=== PATIENT | male | born 1950 | race Caucasian/White ===

== ENCOUNTER 2017-03-09 08:00 | Outpatient (CLI) | payer MEDICARE, OTHER | END 2017-03-09 08:01 | disposition home or self-care (01) | DX: I50.22 Chronic systolic (congestive) heart failure (principal) ==

== ENCOUNTER 2018-04-26 12:37 | Emergency (ER) | payer MEDICARE, OTHER ==
[2018-04-26 13:12] LABS: BASOPHILS # (AUTO) 0.1 10^3/uL (0.0-0.1); BASOPHILS % (AUTO) 1.3 %; EOSINOPHILS # (AUTO) 0.2 10^3/uL (0.0-0.7); EOSINOPHILS % (AUTO) 3.5 %; HGB - HEMOGLOBIN 12.9 g/dL (14.0-18.0); LYMPHOCYTES % (AUTO) 13.8 %; MEAN CORPUSCULAR HEMOGLOBIN 31.2 pg (27.0-31.0); MEAN CORPUSCULAR HGB CONC 33.6 g/dL (32.0-36.0); MEAN CORPUSCULAR VOLUME 93.1 fL (80.0-94.0); MEAN PLATELET VOLUME 7.7 fL (7.4-11.4); MONOCYTES # (AUTO) 0.5 10^3/uL (0.0-1.0); MONOCYTES % (AUTO) 7.2 %; NEUTROPHILS # (AUTO) 5.1 10^3/uL (1.5-6.6); NEUTROPHILS % (AUTO) 74.2 %; PLT - PLATELET COUNT 186 10^3/uL (130-450); RED BLOOD COUNT 4.12 10^6/uL (4.70-6.10); RED CELL DISTRIBUTION WIDTH 13.9 % (12.0-15.0); WHITE BLOOD COUNT 6.9 x10^3/uL (4.8-10.8)
[2018-04-26 13:30] LABS: ALBUMIN 3.9 g/dL (3.2-5.5); ALBUMIN/GLOBULIN RATIO 1.2 (1.0-2.2); BILIRUBIN,TOTAL 0.8 mg/dL (0.2-1.0); CALCIUM 9.1 mg/dL (8.5-10.3); CREATININE 1.2 mg/dL (0.6-1.2); TOTAL PROTEIN 7.1 g/dL (6.7-8.2)
--- NOTE | 2018-04-26 14:49 | XRAY Report ---
Procedure Date: 04/26/2018 Accession Number: [id number] / [id number] Procedure: XR - Chest 2 View X-Ray CPT Code: 15169 FULL RESULT: EXAM: CHEST RADIOGRAPHY EXAM DATE: 04/26/2018 02:22 PM. CLINICAL HISTORY: Lightheaded. COMPARISON: 03/03/2015. TECHNIQUE: 2 views. FINDINGS: Lungs/Pleura: No focal opacities evident. No pleural effusion. No pneumothorax. Normal volumes. No vascular congestion. Mediastinum: Stable mild cardiomegaly. Remote sternotomy. Stable dual-lead left subclavian AICD. No tracheal shift. Other: None. IMPRESSION: Mild cardiomegaly. AICD. RADIA
[2018-04-26] MEDS ORDERED: SODIUM CHLORIDE 0.9% 500 ML IV ONE (15:02)
[2018-04-26] MEDS ORDERED: INSULIN REGULAR HUMAN 100 UNIT/1 ML 10 ML MDV IVP STA (15:03)
--- NOTE | 2018-04-26 15:11 | ED Physician Documentation ---
PD HPI CHEST PAIN - Stated complaint Stated Complaint: HEART PALPITATIONS,FATIGUE,DIZZINESS,H/A - Chief complaint Chief Complaint: Cardiac - History obtained from History obtained from: Patient, Family - History of Present Illness Timing - onset: Other (This is a very pleasant 67-year-old gentleman with history of ischemic cardiomyopathy with multiple stents in place and EF 40%, AICD in place in underlying atrial fibrillation on Eliquis. He presents with a week's worth of exertional shortness of breath without orthopnea and fatigue. He denies any chest pain or pedal edema. He does note urinary frequency. No stomach upset or changes in his bowel movements.) Review of Systems Ten Systems: 10 systems reviewed and negative Constitutional: reports: Fatigue. denies: Fever, Chills Cardiac: denies: Chest pain / pressure, Palpitations, Pedal edema, Calf pain Respiratory: denies: Cough, Hemoptysis, Wheezing GI: denies: Abdominal Pain, Nausea, Vomiting, Bloody / black stool PD PAST MEDICAL HISTORY - Past Medical History Cardiovascular: Congestive heart failure, Hypertension, High cholesterol, Coronary artery disease, Angina, [place], Atrial flutter Respiratory: Sleep apnea, CPAP use Endocrine/Autoimmune: Type 2 diabetes GI: GERD Psych: None Musculoskeletal: Osteoarthritis, Fatigue, Chronic back pain - Past Surgical History Past Surgical History: Yes General: Cholecystectomy Ortho: Arthroscopic surgery, Spine surgery Cardiovascular: CABG, Coronary stent, Pacemaker, AICD - Present Medications Home Medications: Ambulatory Orders Medication Instructions Recorded Confirmed Apixaban [Eliquis] 5 mg PO BID 03/03/15 01/19/16 Aspirin [Aspir 81] 1 tab PO DAILY 03/03/15 01/19/16 Carvedilol [Coreg] 12.5 tab PO BID 03/03/15 01/19/16 Digoxin 125 mcg PO DAILY 03/03/15 01/19/16 Esomeprazole Magnesium [Nexium] 40 mg PO DAILY 03/03/15 01/19/16 Fenofibrate 160 mg PO DAILY 03/03/15 01/19/16 Furosemide 40 mg PO DAILY 03/03/15 01/19/16 Lisinopril 5 mg PO DAILY 03/03/15 01/19/16 Metformin HCl [Metformin HCl ER] 500 mg PO BID 03/03/15 01/19/16 Ranolazine [Ranexa] 500 mg PO BID 03/03/15 01/19/16 Rosuvastatin Calcium [Crestor] 20 mg PO DAILY 03/03/15 01/19/16 Sertraline HCl 100 mg PO DAILY 03/03/15 01/19/16 Spironolactone 25 mg PO DAILY 03/03/15 01/19/16 Insulin Lispro Protamin/Lispro 60 - 70 unit SQ BID 01/19/16 01/19/16 [Humalog Mix 75-25 Vial] Nitroglycerin [Nitrostat] 0.3 mg SL Q5MIN PRN 01/19/16 01/19/16 Ubidecarenone/Vitamin E Mixed 1 each PO DAILY 01/19/16 01/19/16 [[id number]-Tzz E 100 mg-10 Unit Sfg] - Allergies Allergies/Adverse Reactions: Allergies Allergy/AdvReac Type Severity Reaction Status Date / Time No Known Drug Allergies Allergy Verified 04/26/18 12:52 - Social History Does the pt smoke?: No Smoking Status: Former smoker Does the pt drink ETOH?: Yes Does the pt have substance abuse?: No PD ED PE NORMAL - Vitals Vital signs reviewed: Yes - General General: Alert and oriented X 3, No acute distress - HEENT HEENT: PERRL, EOMI - Neck Neck: Supple, no meningeal sign, No bony TTP - Cardiac Cardiac: RRR, No murmur - Respiratory Respiratory: No respiratory distress, Clear bilaterally - Abdomen Abdomen: Non tender, Non distended - Extremities Extremities: No edema, No calf tenderness / cord - Neuro Neuro: Alert and oriented X 3, Normal speech - Psych Psych: Normal mood, Normal affect Results - Vitals Vitals: Vital Signs - 24 hr 04/26/18 04/26/18 12:48 15:32 Temperature 36 C L Heart Rate 58 L 60 Respiratory 16 16 Rate Blood Pressure 93/62 130/77 Blood Pressure 128/70 [Left] Blood Pressure 132/70 H [Right] O2 Saturation 96 98 Oxygen O2 Source Room air - EKG (time done) 1301 Rate: Rate (enter#) Rhythm: Paced (60) Computer interpretation: Agree with computer - Labs Labs: Laboratory Tests 04/26/18 04/26/18 04/26/18 13:09 13:09 13:09 WBC 6.9 RBC 4.12 L Hgb 12.9 L Hct 38.4 L MCV 93.1 MCH 31.2 H MCHC 33.6 RDW 13.9 Plt Count 186 MPV 7.7 Neut # (Auto) 5.1 Lymph # (Auto) 1.0 L [place] # (Auto) 0.5 Eos # (Auto) 0.2 Baso # (Auto) 0.1 Absolute Nucleated RBC 0.00 Nucleated RBC % 0.0 Sodium 133 L Potassium 4.8 Chloride 103 Carbon Dioxide 23 Anion Gap 7.0 BUN 33 H Creatinine 1.2 Estimated GFR (MDRD) 60 L Glucose 410 H POC Whole Bld Glucose Calcium 9.1 Total Bilirubin 0.8 AST 43 H ALT 28 Alkaline Phosphatase 82 Troponin I < 0.04 B-Natriuretic Peptide Total Protein 7.1 Albumin 3.9 Globulin 3.2 Albumin/Globulin Ratio 1.2 Lipase 36 Last Dose Date Last Dose Time Digoxin 04/26/18 04/26/18 04/26/18 13:09 13:09 16:23 WBC RBC Hgb Hct MCV MCH MCHC RDW Plt Count MPV Neut # (Auto) Lymph # (Auto) [place] # (Auto) Eos # (Auto) Baso # (Auto) Absolute Nucleated RBC Nucleated RBC % Sodium Potassium Chloride Carbon Dioxide Anion Gap BUN Creatinine Estimated GFR (MDRD) Glucose POC Whole Bld Glucose 253 H Calcium Total Bilirubin AST ALT Alkaline Phosphatase Troponin I B-Natriuretic Peptide 99 Total Protein Albumin Globulin Albumin/Globulin Ratio Lipase Last Dose Date UNKNOWN Last Dose Time UNKNOWN Digoxin < 0.2 - Rads (name of study) 2v chest Radiology: EMP read contemporaneously (Mild cardiomegaly, AICD, no CHF) PD MEDICAL DECISION MAKING - ED course ED course: 67-year-old gentleman with exertional dyspnea but no orthopnea. He does not appear to be in CHF and looking at his labs he is slightly hypovolemic with BUN higher than normal and high blood sugar. He admits he does not check his blood sugar at home. After the administration of 500 mL of normal saline and IV insulin his blood sugar was down to the 250 range and he was feeling back to normal. He was advised to increase his nighttime dose of insulin to 70 units and track his blood sugars closely and report to his physician. - Sepsis Event Vital Signs: Vital Signs - 24 hr 04/26/18 04/26/18 12:48 15:32 Temperature 36 C L Heart Rate 58 L 60 Respiratory 16 16 Rate Blood Pressure 93/62 130/77 Blood Pressure 128/70 [Left] Blood Pressure 132/70 H [Right] O2 Saturation 96 98 Oxygen O2 Source Room air Departure - Departure Disposition: 01 Home, Self Care Clinical Impression: Hyperglycemia, Dehydration Fatigue Qualifiers: Fatigue type: unspecified Qualified Code(s): R53.83 - Other fatigue Condition: Good Record reviewed to determine appropriate education?: Yes Instructions: ED Hyperglycemia Diabetic Comments: Increase her nighttime insulin dose to 70 units, check your blood sugars closely and write them down, follow-up with your doctor in a week.
[2018-04-26 15:23] LABS: DIGOXIN < 0.2 ng/mL
[2018-04-26 15:50] VITALS: BP 130/77
== END 2018-04-26 16:55 | disposition home or self-care (01) ==
LOC: ED 12:37
DX: E11.65 Type 2 diabetes mellitus with hyperglycemia (principal); E86.0 Dehydration; R53.83 Other fatigue; R94.31 Abnormal electrocardiogram [ECG] [EKG]; I11.0 Hypertensive heart disease with heart failure; I50.9 Heart failure, unspecified; E78.00 Pure hypercholesterolemia, unspecified; I48.91 Unspecified atrial fibrillation; Z95.1 Presence of aortocoronary bypass graft; Z79.4 Long term (current) use of insulin; Z95.810 Presence of automatic (implantable) cardiac defibrillator; Z95.5 Presence of coronary angioplasty implant and graft; Z87.891 Personal history of nicotine dependence; Z79.01 Long term (current) use of anticoagulants; Z79.82 Long term (current) use of aspirin
CPT/HCPCS: 36415; 71046; 80053; 80162; 83690; 83880; 84484; 85025; 93005; 99283; 99284; J1815

== ENCOUNTER 2018-06-12 11:52 | Outpatient (CLI) | payer MEDICARE, OTHER ==
[2018-06-12 13:03] LABS: CREATININE 1.3 mg/dL (0.6-1.2)
== END 2018-06-12 11:53 | disposition home or self-care (01) ==
LOC: LAB 11:52
PROVIDERS: ATTEND Ophthalmology
DX: G93.0 Cerebral cysts (principal); H53.2 Diplopia
CPT/HCPCS: 36415; 82565; 84520

== ENCOUNTER 2018-06-13 10:11 | Outpatient (CLI) | payer MEDICARE, OTHER | END 2018-06-13 10:12 | disposition home or self-care (01) | LOC: DI 10:11 | PROVIDERS: ATTEND Ophthalmology | DX: Z53.9 Procedure and treatment not carried out, unspecified reason (principal) ==

== ENCOUNTER 2019-04-04 11:44 | Outpatient (CLI) | payer MEDICARE, OTHER | END 2019-04-04 11:45 | disposition critical access hospital (66) | LOC: EMS 11:44 | PROVIDERS: ATTEND Surgery | DX: R42 Dizziness and giddiness (principal); R26.2 Difficulty in walking, not elsewhere classified; R41.3 Other amnesia; R19.5 Other fecal abnormalities | CPT/HCPCS: A0425; A0427 ==

== ENCOUNTER 2019-04-04 12:05 | Inpatient (IN) | payer MEDICARE, OTHER ==
[2019-04-04] MEDS ORDERED: PANTOPRAZOLE 40 MG VIAL IVP STA (12:41)
--- NOTE | 2019-04-04 12:44 | ED Physician Documentation ---
History of Present Illness - Stated complaint Stated Complaint: BODY ACHES - Chief complaint Chief Complaint: General - History obtained from History obtained from: Patient, EMS - History of Present Illness Timing: Other (This is a gentleman with history of atrial fibrillation on Eliquis, coronary artery disease and congestive heart failure. About 2 weeks ago he was taken off of amitriptyline and started on midodrine. He feels like this was the beginning of his current problems which include generalized weakness and dark and tarry stools. He does have a history of several stomach ulcers. I asked him if he was taking any NSAIDs he said he was but he could not name one despite prompting. I asked him what he was taking it for and he said sleep. I reminded him that he should not take NSAIDs and if necessary for pain he can take Tylenol, but he has not been taking anything for pain he says. So it is unclear if he is been taking NSAIDs. He does have a history of alcohol abuse but quit a year ago.) Review of Systems Ten Systems: 10 systems reviewed and negative Constitutional: reports: Myalgias, Fatigue. denies: Fever, Chills Cardiac: denies: Chest pain / pressure, Palpitations GI: reports: Bloody / black stool. denies: Abdominal Pain, Nausea, Vomiting, Constipation, Diarrhea PD PAST MEDICAL HISTORY - Past Medical History Cardiovascular: Congestive heart failure, Hypertension, High cholesterol, Co ronary artery disease, Angina, [place], Atrial flutter Respiratory: Sleep apnea, CPAP use Endocrine/Autoimmune: Type 2 diabetes GI: GERD Psych: None Musculoskeletal: Osteoarthritis, Fatigue, Chronic back pain - Past Surgical History Past Surgical History: Yes General: Cholecystectomy Ortho: Arthroscopic surgery, Spine surgery Cardiovascular: CABG, Coronary stent, Pacemaker, AICD - Present Medications Home Medications: Ambulatory Orders Medication Instructions Recorded Confirmed Apixaban [Eliquis] 5 mg PO BID 03/03/15 01/19/16 Aspirin [Aspir 81] 1 tab PO DAILY 03/03/15 01/19/16 Carvedilol [Coreg] 12.5 tab PO BID 03/03/15 01/19/16 Digoxin 125 mcg PO DAILY 03/03/15 01/19/16 Esomeprazole Magnesium [Nexium] 40 mg PO DAILY 03/03/15 01/19/16 Fenofibrate 160 mg PO DAILY 03/03/15 01/19/16 Furosemide 40 mg PO DAILY 03/03/15 01/19/16 Lisinopril 5 mg PO DAILY 03/03/15 01/19/16 Metformin HCl [Metformin HCl ER] 500 mg PO BID 03/03/15 01/19/16 Ranolazine [Ranexa] 500 mg PO BID 03/03/15 01/19/16 Rosuvastatin Calcium [Crestor] 20 mg PO DAILY 03/03/15 01/19/16 Sertraline HCl 100 mg PO DAILY 03/03/15 01/19/16 Spironolactone 25 mg PO DAILY 03/03/15 01/19/16 Insulin Lispro Protamin/Lispro 60 - 70 unit SQ BID 01/19/16 01/19/16 [Humalog Mix 75-25 Vial] Nitroglycerin [Nitrostat] 0.3 mg SL Q5MIN PRN 01/19/16 01/19/16 Ubidecarenone/Vitamin E Mixed 1 each PO DAILY 01/19/16 01/19/16 [[id number]-Xft E 100 mg-10 Unit Sfg] - Allergies Allergies/Adverse Reactions: Allergies Allergy/AdvReac Type Severity Reaction Status Date / Time No Known Drug Allergies Allergy Verified 04/04/19 12:28 - Social History Does the pt smoke?: No Smoking Status: Former smoker Does the pt drink ETOH?: Yes Does the pt have substance abuse?: No - Family History Family history: reports: Non contributory PD ED PE NORMAL - Vitals Vital signs reviewed: Yes - General General: Alert and oriented X 3, No acute distress - HEENT HEENT: PERRL, EOMI - Neck Neck: Supple, no meningeal sign, No bony TTP - Cardiac Cardiac: RRR, No murmur - Respiratory Respiratory: No respiratory distress, Clear bilaterally - Abdomen Abdomen: Soft, Non tender - Rectal Rectal: Other (Dark stool, I would not quite call it melenic but it is quite dark and very guaiac positive) - Back Back: No CVA TTP, No spinal TTP - Derm Derm: Normal color, Warm and dry - Extremities Extremities: No edema, No calf tenderness / cord - Neuro Neuro: Alert and oriented X 3, Normal speech Results - Vitals Vitals: Vital Signs - 24 hr 04/04/19 12:21 Temperature 37.2 C Heart Rate 77 Respiratory 18 Rate Blood Pressure 132/61 H O2 Saturation 96 Oxygen O2 Source Room air - EKG (time done) 1230 Rate: Rate (enter#) (67) Rhythm: Other (Regular junctional rhythm with a left anterior fascicular block, diffusely flat T waves, no ST elevation or depression.) Computer interpretation: Agree with computer - Labs Labs: Laboratory Tests 04/04/19 04/04/19 04/04/19 12:45 12:45 12:45 WBC 7.6 RBC 2.63 L Hgb 8.1 L Hct 24.4 L MCV 92.7 MCH 30.7 MCHC 33.1 RDW 17.8 H Plt Count 183 MPV 7.6 Neut # (Auto) 6.1 Lymph # (Auto) 0.8 L [place] # (Auto) 0.5 Eos # (Auto) 0.1 Baso # (Auto) 0.1 Absolute Nucleated RBC 0.01 Nucleated RBC % 0.1 Sodium 140 Potassium 3.9 Chloride 106 Carbon Dioxide 23 Anion Gap 11.0 BUN 25 H Creatinine 0.9 Estimated GFR (MDRD) 84 L Glucose 144 H Calcium 8.6 Total Bilirubin 1.0 AST 39 ALT 24 Alkaline Phosphatase 120 Troponin I < 0.04 Total Protein 6.5 L Albumin 3.5 Globulin 3.0 Albumin/Globulin Ratio 1.2 Lipase 33 PD MEDICAL DECISION MAKING - ED course ED course: 68-year-old gentleman with extensive history of coronary disease on [facility] ents with Dark and tarry stools and evidence of lower GI bleeding with a hemoglobin of 8.1, his usual is around 3018. His hemodynamics are fine. Blood was readied and he was given Protonix. I talked with the on-call surgeon, Dr. Javon Valles who will see him in consultation at 1:15 PM and the admitting physician, Dr. Maddox at 1:19 PM. Departure - Departure Disposition: 66 [facility] DC/Xfer Clinical Impression: GI bleed Condition: Serious
[2019-04-04 12:56] LABS: BASOPHILS # (AUTO) 0.1 10^3/uL (0.0-0.1); BASOPHILS % (AUTO) 0.9 %; EOSINOPHILS # (AUTO) 0.1 10^3/uL (0.0-0.7); EOSINOPHILS % (AUTO) 1.4 %; HGB - HEMOGLOBIN 8.1 g/dL (14.0-18.0); LYMPHOCYTES # (AUTO) 0.8 10^3/uL (1.5-3.5); LYMPHOCYTES % (AUTO) 11.1 %; MEAN CORPUSCULAR HEMOGLOBIN 30.7 pg (27.0-31.0); MEAN CORPUSCULAR HGB CONC 33.1 g/dL (32.0-36.0); MEAN CORPUSCULAR VOLUME 92.7 fL (80.0-94.0); MEAN PLATELET VOLUME 7.6 fL (7.4-11.4); MONOCYTES # (AUTO) 0.5 10^3/uL (0.0-1.0); MONOCYTES % (AUTO) 6.5 %; NEUTROPHILS # (AUTO) 6.1 10^3/uL (1.5-6.6); NEUTROPHILS % (AUTO) 80.1 %; PLT - PLATELET COUNT 183 10^3/uL (130-450); RED BLOOD COUNT 2.63 10^6/uL (4.70-6.10); RED CELL DISTRIBUTION WIDTH 17.8 % (12.0-15.0); WHITE BLOOD COUNT 7.6 x10^3/uL (4.8-10.8)
[2019-04-04 13:13] LABS: ALBUMIN 3.5 g/dL (3.2-5.5); ALBUMIN/GLOBULIN RATIO 1.2 (1.0-2.2); ALKALINE PHOSPHATASE 120 IU/L (42-121); ALT ALANINE AMINOTRANSFERASE 24 IU/L (10-60); AST ASPARTATE AMINOTRANSFERASE 39 IU/L (10-42); BUN - BLOOD UREA NITROGEN 25 mg/dL (6-20); CALCIUM 8.6 mg/dL (8.5-10.3); CARBON DIOXIDE - CO2 23 mmol/L (21-32); CHLORIDE 106 mmol/L (101-111); CREATININE 0.9 mg/dL (0.6-1.2); GFR - MDRD 84 (>89); GLUCOSE 144 mg/dL (70-100); LIPASE 33 U/L (22-51); SODIUM 140 mmol/L (135-145); TOTAL PROTEIN 6.5 g/dL (6.7-8.2)
[2019-04-04 13:30] LABS: DIGOXIN < 0.2 ng/mL
[2019-04-04] MEDS ORDERED: SODIUM CHLORIDE FLUSH 0.9% 10 ML SYRINGE IVP PRN (13:34)
[2019-04-04] MEDS ORDERED: ONDANSETRON 4 MG/2 ML VIAL IVP PRN (13:34)
--- NOTE | 2019-04-04 13:37 | HISTORY & PHYSICAL EXAMINATION ---
Chief Complaint - Chief Complaint Chief Complaint: GI bleed, falls, weakness GI Bleed Admit Template - Admitted From Admitted from: ED - History Obtained From Records Reviewed: RN notes reviewed, Old records reviewed History obtained from: Patient Exam limitations: No limitations - History of Present Illness Severity at the worst: reports: Moderate Bleeding quality: reports: Black, tarry stool Context-bleeding started w/: reports: Spontaneous, ETOH intake Timing: reports: Gradual onset (about 1 week ago), Intermittent Duration: reports: Days: (7) Improved with: reports: Nothing Worsened by: reports: Other (recent increased NSAID use for insomnia) Associated symptoms: reports: Feeling faint / dizzy, General Weakness, Other (recurrent falls) HPI Comment/Other: Maxime Tristan is an obese 68-year old male with a past medical history of CHF, hypertension, hyperlipidemia, CAD, chronic angina, atrial flutter, SHIELA- with CP AP, diabetes mellitus type 2- insulin dependent, GERD, osteoarthritis, fatigue, chronic back pain, status post CABG, coronary stents, pacemaker/ICD in place, BPH, nocturia, insomnia, gastric ulcers, depression, and alcoholism. The patient states that he was started on amitriptyline for ongoing insomnia and in mid February was started on Midodrine by his ultrasonic seaming machine operator. He believes that since starting the Midodrine, he has been having bad side effects and that this medication has caused his black stools. He admits to a recent increase in his ibuprofen use in which he takes 2-3 tablets each night before bed to promote sleep. He admits to alcohol use and states that he and his will usually dr ink 1 bottle of wine between the 2 of them each night. He also states that for the past week his syncope episodes have been more frequent in which he becomes very weak, looses the ability to speak and has to quickly find a place to sit in order to prevent himself from falling all the way to the floor. These episodes last 15-20 minutes and he has double vision with left eye fogginess. For the pa st 1 year he has noticed a slight tremor and weakness to his RUE of which he is right-hand dominant. He believes that he has been to at least 5 specialists within the past year and his illness remains "a mystery" to every medical professional. He claims that he will be traveling to the [facility] in [place] in the very near future. He explains that if he has to "just sit around for the next 48 hours, he is going to leave", in regards to his current situation. A general surgery consult was made already in the ED for a possible EGD and colonoscopy to evaluate for a recurrence of gastric ulcers. PMH/PSH - Past Medical History Cardiovascular: positive: Congestive heart failure, Hypertension, High cholesterol, Coronary artery disease, Angina, [place], Atrial flutter Respiratory: positive: COPD, Shortness of breath, Sleep apnea, CPAP use Neuro: positive: TIA, Peripheral neuropathy, Tremors (right hand tremor, weakness) Endocrine/Autoimmune: positive: Type 2 diabetes GI: positive: GERD, GI bleed, Ulcers : positive: Benign prostate hypertrophy, Renal insuffiency, Nocturia, Frequency HEENT: positive: Chronic vision loss, Chronic sinusitis, Macular degeneration, Chronic hearing loss Psych: positive: Depression, Anxiety Musculoskeletal: positive: Osteoarthritis, Fatigue, Chronic back pain Derm: positive: None MRSA Hx?: No - Past Surgical History General: positive: Cholecystectomy, EGD Ortho: positive: Arthroscopic surgery, Spine surgery Cardiovascular: positive: CABG, Coronary stent, Pacemaker, AICD Social & Family Hx - Living Situation Living Arrangement: At home Living Situation: With spouse/s.o. - Social History Does the pt smoke?: No Smoking Status: Former smoker Does the pt drink ETOH?: Yes ETOH Use: Wine Does the pt have substance abuse?: No - POLST Patient has POLST: No POLST Status: DNR - Family History Family History: Mother: , CAD, Father: Family History Comment/Other: Mother: CHF Father: in the war Meds/Allgy - Home Medications Home Medications: Ambulatory Orders Medication Instructions Recorded Confirmed Apixaban [Eliquis] 5 mg PO BID 03/03/15 04/04/19 Aspirin [Aspir 81] 81 mg PO DAILY 03/03/15 04/04/19 Carvedilol [Coreg] 6.25 mg PO BID 03/03/15 04/04/19 Esomeprazole Magnesium [Nexium] 40 mg PO QDAC 03/03/15 04/04/19 Furosemide 40 mg PO DAILY 03/03/15 04/04/19 Lisinopril 5 mg PO DAILY 03/03/15 04/04/19 Metformin HCl [Metformin HCl ER] 500 mg PO BIDWM 03/03/15 04/04/19 Ranolazine [Ranexa] 1,000 mg PO BID 03/03/15 04/04/19 Rosuvastatin Calcium [Crestor] 40 mg PO DAILY 03/03/15 04/04/19 Sertraline HCl 100 mg PO DAILY 03/03/15 04/04/19 Spironolactone 25 mg PO DAILY 03/03/15 04/04/19 Insulin Lispro Protamin/Lispro 70 units SUBQ QDBREAKFAST 01/19/16 04/04/19 [Humalog Mix 75-25 Vial] Amiodarone HCl 200 mg PO DAILY 04/04/19 04/04/19 Insulin Lispro Protamin/Lispro 50 units SUBQ QDDINNER 04/04/19 04/04/19 [Humalog Mix 75-25 Vial] Midodrine 2.5 mg PO BID 04/04/19 04/04/19 Ubidecarenone [Coenzyme Q10] 20 meq PO DAILY 04/04/19 04/04/19 - Allergies Allergies/Adverse Reactions: Allergies Allergy/AdvReac Type Severity Reaction Status Date / Time No Known Drug Allergies Allergy Verified 04/04/19 12:28 Review of Systems - Constitutional Constitutional: reports: Fatigue, Weakness, Poor appetite - Eyes Eyes: reports: Blurred vision, Vision loss - Ears, Nose & Throat Ears, Nose & Throat: reports: Hearing loss, Hearing aids, Postnasal drainage, Dentures - Cardiovascular Cariovascular: reports: Chest pain, Edema, Lightheadedness, Syncope, Exertional dyspnea, Decr. exercise tolerance, Orthopnea - Respiratory Respiratory: reports: Cough, Orthopnea, SOB at rest, SOB with exertion - Gastrointestinal Gastrointestinal: reports: Abdominal distention, Change in bowel habits, Black stools, Nausea, Reflux/heartburn, Bloating, Poor appetite - Genitourinary Genitourinary: reports: Dysuria, Frequency, Nocturia - Musculoskeletal Musculoskeletal: reports: Muscle aches, Limited range of motion, Joint pain, Joint swelling - Integumentary Integumentary: reports: Dryness - Neurological Neurological: reports: General weakness, Focal weakness, Headache, Dizziness, Numbness, Memory problems, Pre-existing deficit, Abnormal gait - Psychiatric Psychiatric: reports: Depression, Anxiety - Hematologic/Lymphatic Hematologic/Lymphatic: reports: Anemia - All Other Systems All Other Systems: reports: Reviewed and negative Prior Level of Functionality: Independent at home, recent falls Exam - Vital Signs Reviewed Vital Signs: Yes Vital Signs: Vital Signs x48h Temp Pulse Resp BP Pulse Ox 04/04/19 12:21 37.2 C 77 18 132/61 H 96 - Physical Exam General Appearance: positive: Alert, Moderate distress, Anxious Eyes Bilateral: positive: PERRL ENT: positive: Pharynx nml, Dry mucous membranes Neck: positive: Thyroid nml, No JVD Respiratory: positive: Chest non-tender, No respiratory distress, Breath sounds nml Cardiovascular: positive: No gallop, Irregularly irregular, Systolic murmur Peripheral Pulses: positive: 2+ Abdomen: positive: Nml bowel sounds, Tenderness, Guarding, Hepatomegaly, Other (rounded, soft) Back: positive: Nml inspection Skin: positive: No rash, Warm, Dry Extremities: positive: Non-tender, Full ROM, Nml appearance, Pedal edema Neurologic/Psychiatric: positive: Oriented x3, CN's nml (2-12), Motor nml, Sensation nml, Weakness, Depressed mood/affect, Other (short term memory loss) Reflexes: Bicep (R): 3+, Bicep (L): 3+ Results - Lab Results Lab results reviewed: Yes Fish Bones: 04/05/19 05:49 04/05/19 05:49 Other Lab Results: Lab Results x24hrs 04/04/19 04/04/19 04/04/19 Range/Units 12:45 12:45 12:45 WBC 7.6 (4.8-10.8) x10^3/uL RBC 2.63 L (4.70-6.10) 10^6/uL Hgb 8.1 L (14.0-18.0) g/dL Hct 24.4 L (42.0-52.0) % MCV 92.7 (80.0-94.0) fL MCH 30.7 (27.0-31.0) pg MCHC 33.1 (32.0-36.0) g/dL RDW 17.8 H (12.0-15.0) % Plt Count 183 (130-450) 10^3/uL MPV 7.6 (7.4-11.4) fL Neut # (Auto) 6.1 (1.5-6.6) 10^3/uL Lymph # (Auto) 0.8 L (1.5-3.5) 10^3/uL [place] # (Auto) 0.5 (0.0-1.0) 10^3/uL Eos # (Auto) 0.1 (0.0-0.7) 10^3/uL Baso # (Auto) 0.1 (0.0-0.1) 10^3/uL Absolute Nucleated RBC 0.01 x10^3/uL Nucleated RBC % 0.1 /100WBC Sodium 140 (135-145) mmol/L Potassium 3.9 (3.5-5.0) mmol/L Chloride 106 (101-111) mmol/L Carbon Dioxide 23 (21-32) mmol/L Anion Gap 11.0 (6-13) BUN 25 H (6-20) mg/dL Creatinine 0.9 (0.6-1.2) mg/dL Estimated GFR (MDRD) 84 L (>89) Glucose 144 H (70-100) mg/dL Calcium 8.6 (8.5-10.3) mg/dL Total Bilirubin 1.0 (0.2-1.0) mg/dL AST 39 (10-42) IU/L ALT 24 (10-60) IU/L Alkaline Phosphatase 120 (42-121) IU/L Troponin I < 0.04 (<0.49) ng/mL Total Protein 6.5 L (6.7-8.2) g/dL Albumin 3.5 (3.2-5.5) g/dL Globulin 3.0 (2.1-4.2) g/dL Albumin/Globulin Ratio 1.2 (1.0-2.2) Lipase 33 (22-51) U/L Last Dose Date UNK Last Dose Time UNK Digoxin < 0.2 ng/mL Impression/Plan - Problem List Problem List: Gastrointestinal hemorrhage, unspecified (K92.2) Acute blood loss anemia (D62) Syncope (R55) Alcohol use disorder, moderate, dependence (F10.20) Patient takes NSAID (non-steroid anti-inflammatory drug) (Z79.1) H/O atrial flutter (Z86.79) GERD (gastroesophageal reflux disease) (K21.9) Diabetes mellitus type 2 with complications (E11.8) Dual ICD (implantable cardioverter-defibrillator) in place (Z95.810) Status post aorto-coronary artery bypass graft (Z95.1) [place], old (I25.2) CAD (coronary artery disease) (I25.10) Hyperlipidemia (E78.5) CHF (NYHA class II, ACC/AHA stage C) (I50.9) SHIELA on CPAP (G47.33) Essential hypertension (I10) Dementia (F03.90) Plan: Admit to inpatient, general surgery consult. Serial H/Hs, replace blood if hemoglobin gets below 8 due to CAD. Plan for EGD, possible colonoscopy. CIWA protocol if needed, telemetry, monitor blood sugars, echo for syncope work up, monitor fluid status, home CPAP at night, and monitor labs. Core Measures - Anticipated LOS I expect patient to be DC'd or transferred within 96 hours.: Yes - DVT/VTE - Prophylaxis VTE/DVT Device ordered at admit?: Yes VTE/DVT Prophylaxis med ordered at admit?: No Not Ordered - Medical Reason: Contraindicated - Stroke - Rehab Assessment Rehab services assessment to be ordered?: No Not Ordered - Medical Reason: Contraindicated - AMI - Statin at Admit Aspirin Prescribed on Admit: No Not Ordered - Medical Reason: Contraindicated
[2019-04-04] MEDS: SODIUM CHLORIDE FLUSH 0.9% 10 ML SYRINGE IVP SCH (17:16)
--- NOTE | 2019-04-04 18:40 | CONSULTATION NOTE ---
Referring Provider Name of Referring Provider:: Patricio Gilmore NICANOR Consult Date: 04/04/19 Chief Complaint - Chief Complaint Chief Complaint: gi bleed/melena History of Present Illness - Admitted From Admitted From:: ER - History Obtained From Records Reviewed: yes History obtained from: pt, records Exam Limitations: pt has memory problem - History of Present Illness HPI Comment/Other: 68 yo male with 2.5 week hx of passing dark/black stools, once daily, without associated abdominal pain, N/V or hematemesis, without abdominal pain, diarrhea or hematochezia, without wt loss. He reports similar problem approx 15 yrs ago where and EGD apparently showed 4 gastric ulcers, apparently due to NSAIDs. He currently reports use of daily ASA 81 mg plus occasional ibuprofen for pain/headache/sleep. No heartburn, indigestion, dysphagia. No tobacco. Hx heavy alcohol use in the past, but moderated over the past year, now averaging 1-2 drinks/day. No hx alcohol related medical problems. His last colonoscopy was in 2007 and reportedly was nl. Neg FH GI tumors. He was noted to have a HGB of 8 today, down from baseline of 13. No hx of dizziness, syncope, but has felt fatigued and unwell for the past few weeks. He has been hemodynamically stable in the ER and since admission. His med list includes daily PPI use but pt denies taking any acid reducing medication. History - Past Medical History Cardiovascular: reports: Congestive heart failure, Hypertension, High cholesterol, Coronary artery disease, Angina, [place], Atrial flutter Respiratory: reports: Sleep apnea, CPAP use Neuro: reports: Seizure disorder (spells of uncertain etiology followed by neurology) Endocrine/Autoimmune: reports: Type 2 diabetes Psych: reports: None Musculoskeletal: reports: Osteoarthritis, Fatigue, Chronic back pain MRSA Hx?: No - Past Surgical History General: reports: Cholecystectomy Ortho: reports: Arthroscopic surgery, Spine surgery Cardiovascular: reports: CABG, Coronary stent, Pacemaker, AICD - Family & Social History Living arrangement: At home Living Situation: With spouse/s.o. - Substance History Use: Uses substance without health or social issues: Alcohol (1-2 drinks/day) Meds/Allgy - Home Medications Home Medications: Ambulatory Orders Medication Instructions Recorded Confirmed Apixaban [Eliquis] 5 mg PO BID 03/03/15 04/04/19 Aspirin [Aspir 81] 81 mg PO DAILY 03/03/15 04/04/19 Carvedilol [Coreg] 6.25 mg PO BID 03/03/15 04/04/19 Esomeprazole Magnesium [Nexium] 40 mg PO QDAC 03/03/15 04/04/19 Furosemide 40 mg PO DAILY 03/03/15 04/04/19 Lisinopril 5 mg PO DAILY 03/03/15 04/04/19 Metformin HCl [Metformin HCl ER] 500 mg PO BIDWM 03/03/15 04/04/19 Ranolazine [Ranexa] 1,000 mg PO BID 03/03/15 04/04/19 Rosuvastatin Calcium [Crestor] 40 mg PO DAILY 03/03/15 04/04/19 Sertraline HCl 100 mg PO DAILY 03/03/15 04/04/19 Spironolactone 25 mg PO DAILY 03/03/15 04/04/19 Insulin Lispro Protamin/Lispro 70 units SUBQ QDBREAKFAST 01/19/16 04/04/19 [Humalog Mix 75-25 Vial] Amiodarone HCl 200 mg PO DAILY 04/04/19 04/04/19 Insulin Lispro Protamin/Lispro 50 units SUBQ QDDINNER 04/04/19 04/04/19 [Humalog Mix 75-25 Vial] Midodrine 2.5 mg PO BID 04/04/19 04/04/19 Ubidecarenone [Coenzyme Q10] 20 meq PO DAILY 04/04/19 04/04/19 - Allergies Allergies/Adverse Reactions: Allergies Allergy/AdvReac Type Severity Reaction Status Date / Time No Known Drug Allergies Allergy Verified 04/04/19 12:28 Review of Systems - Constitutional Constitutional: reports: Fatigue. denies: Weight gain, Weight loss - Cardiovascular Cariovascular: denies: Chest pain - Respiratory Respiratory: reports: Snoring. denies: Cough, SOB at rest - Gastrointestinal Gastrointestinal: reports: Change in bowel habits, Black stools. denies: Abd ominal pain, Abdominal distention, Constipation, Diarrhea, Rectal bleeding, Bloody stools, Nausea, Vomiting, Bile emesis, Oscar blood emesis, Coffee grounds emesis, Reflux/heartburn, Bloating, Poor appetite - Neurological Neurological: reports: General weakness - Hematologic/Lymphatic Hematologic/Lymphatic: reports: Bruising. denies: Petechiae, Blood clots, Bleeding tendencies - All Other Systems All Other Systems: reports: Reviewed and negative Exam - Vital Signs Reviewed Vital Signs: Yes Vital Signs: Vital Signs x48h Temp Pulse Pulse Resp BP BP Pulse Ox 04/04/19 15:36 36.2 C L 69 20 132/72 H 95 04/04/19 14:33 36.7 C 66 18 116/60 98 04/04/19 12:21 37.2 C 77 18 132/61 H 96 - Physical Exam General Appearance: positive: No acute distress, Alert Eyes Bilateral: positive: Normal inspection, Conjunctivae nml, No scleral icterus ENT: positive: ENT inspection nml, Pharynx nml, No signs of dehydration Neck: positive: Nml inspection, Thyroid nml, No JVD, Trachea midline. negative: Thyromegaly, Lymphadenopathy (R), Lymphadenopathy (L) Respiratory: positive: Chest non-tender, No respiratory distress, Breath sounds nml, Rales (rales left base), Rhonchi. negative: Wheezes Cardiovascular: positive: Regular rate & rhythm, No murmur, No gallop Abdomen: positive: Non-tender, No organomegaly, Nml bowel sounds, No distention, Other (marked truncal obesity). negative: Guarding, Hepatomegaly, Splenomegaly, Mass Skin: positive: Color nml, No rash, Warm, Dry. negative: Cyanosis Extremities: positive: Non-tender, Full ROM, No pedal edema. negative: Calf tenderness Neurologic/Psychiatric: positive: Oriented x3 Conclusion/Plan - Diagnosis Diagnosis: 1. GI bleed/melena. Hemodynamically stable. DDX includes UGI sources such as PUD, gastritis, H.pylori infection, atypical GERD, UGI neoplasm, dieulafoy lesion, angiodyplasia, or lower gi sources such as right sided colonic neoplasm or angiodysplasia. 2. Blood loss anemia. - Plan Plan: Agree with admission, observation, hold apixaban, plan EGD with possible therapy in AM. PAR conf with pt and consent obtained. If this is neg, then will proceed to bowel prep for colonoscopy the following day. Thanks, - Lab Results Fish Bones: 04/04/19 12:45 04/04/19 12:45
[2019-04-04] MEDS: CARVEDILOL 12.5 MG TABLET PO SCH (23:53)
[2019-04-05 06:13] LABS: BASOPHILS # (AUTO) 0.1 10^3/uL (0.0-0.1); BASOPHILS % (AUTO) 1.3 %; EOSINOPHILS # (AUTO) 0.2 10^3/uL (0.0-0.7); EOSINOPHILS % (AUTO) 2.2 %; HGB - HEMOGLOBIN 7.5 g/dL (14.0-18.0); LYMPHOCYTES # (AUTO) 1.3 10^3/uL (1.5-3.5); LYMPHOCYTES % (AUTO) 16.2 %; MEAN CORPUSCULAR HEMOGLOBIN 30.4 pg (27.0-31.0); MEAN CORPUSCULAR HGB CONC 32.3 g/dL (32.0-36.0); MEAN CORPUSCULAR VOLUME 94.1 fL (80.0-94.0); MEAN PLATELET VOLUME 7.7 fL (7.4-11.4); MONOCYTES # (AUTO) 0.7 10^3/uL (0.0-1.0); MONOCYTES % (AUTO) 8.3 %; NEUTROPHILS # (AUTO) 5.8 10^3/uL (1.5-6.6); PLT - PLATELET COUNT 180 10^3/uL (130-450); RED BLOOD COUNT 2.47 10^6/uL (4.70-6.10); RED CELL DISTRIBUTION WIDTH 17.9 % (12.0-15.0)
[2019-04-05] MEDS: SODIUM CHLORIDE FLUSH 0.9% 10 ML SYRINGE IVP SCH ×3 (06:13→16:11)
[2019-04-05 06:30] LABS: ALBUMIN 3.3 g/dL (3.2-5.5); ALBUMIN/GLOBULIN RATIO 1.2 (1.0-2.2); CALCIUM 8.2 mg/dL (8.5-10.3); CREATININE 0.8 mg/dL (0.6-1.2); MAGNESIUM 1.9 mg/dL (1.7-2.8); TOTAL PROTEIN 6.1 g/dL (6.7-8.2)
[2019-04-05] MEDS ORDERED: PANTOPRAZOLE 40 MG VIAL IVP SCH (07:00)
[2019-04-05 07:01] LABS: HB2 TOTAL 7.5 g/dL; HEMOGLOBIN A1C 0.49 g/dL; HEMOGLOBIN A1C % 8.1 % (4.6-6.2)
[2019-04-05] MEDS ORDERED: LIDO GARGLE 30 ML BOTTLE ONE (07:34)
--- NOTE | 2019-04-05 07:36 | PROVIDER PROGRESS NOTE ---
Assessment/Plan - Problem List (1) GI bleed Qualifiers: GI bleed type/associated pathology: melena Qualified Code(s): K92.1 - Melena Assessment/Plan: Clinically stable at present with no evidence of active ongoing bleeding. Rec: EGD this AM, if neg will prep pt for colonoscopy tomorrow. (2) Abnormal LFTs (liver function tests) Assessment/Plan: Etiology unclear; ddx includes med side effect, alcoholic liver disease, NAFLD, etc. Rec: EGD this am will rule in/out esophageal varices. - Current Meds Current Meds: Current Medications Generic Name Dose Route Start Last Admin Trade Name Freq PRN Reason Stop Dose Admin Carvedilol 6.25 mg 04/04/19 22:00 04/04/19 23:53 Coreg PO 6.25 mg BID DYAN Administration Pantoprazole Sodium 40 mg 04/05/19 07:00 04/05/19 06:13 Protonix IVP 40 mg QDAC DYAN Administration Sodium Chloride 10 ml 04/04/19 17:00 04/05/19 06:13 Normal Saline Flush 0.9% IVP 10 ml 0100,0900,1700 DYAN Administration - Lab Result Lab results reviewed: Yes Fish Bone Diagrams: 04/05/19 05:49 04/05/19 05:49 - Additional Planning My Orders: My Active Orders 04/05/19 00:01 NPO except Meds at Midnight [DIET] Subjective - Subjective Patient Reports: Resting Comfortably, No Complaints (no abd pain, N/V, or bm since admission.) Objective Vital Signs: Vital Signs - 24 hr 04/04/19 04/04/19 04/04/19 12:21 14:33 15:36 Temperature 37.2 C 36.7 C 36.2 C L Heart Rate 77 Heart Rate [ 66 69 Brachial] Respiratory 18 18 20 Rate Blood Pressure 132/61 H Blood Pressure 116/60 132/72 H [Right Brachial artery] O2 Saturation 96 98 95 04/04/19 04/04/19 04/04/19 19:00 20:36 23:30 Temperature 37.1 C 37.1 C 37.2 C Heart Rate 72 Heart Rate [ 71 73 Brachial] Respiratory 16 18 16 Rate Blood Pressure Blood Pressure 131/58 H 130/56 L [Right Brachial artery] O2 Saturation 94 97 95 04/05/19 04:21 Temperature 37.3 C Heart Rate Heart Rate [ 76 Brachial] Respiratory 16 Rate Blood Pressure Blood Pressure 111/60 [Right Brachial artery] O2 Saturation 96 Oxygen O2 Source Patient supplied BIPAP I&O (Last 24 Hrs): Intake and Output Totals x24h 04/03/19 04/04/19 04/05/19 23:59 23:59 23:59 Intake Total 537 Output Total 300 535 Balance 237 -535 General: Alert, Oriented x3, Cooperative, No acute distress Abdomen: Soft, No tenderness, No hepatospenomegaly, No masses, Other (marked truncal obesity) Extremities: No edema, No tenderness/swelling - Results Results: Laboratory Results WBC 8.0 x10^3/uL (4.8-10.8) 04/05/19 05:49 RBC 2.47 10^6/uL (4.70-6.10) L 04/05/19 05:49 Hgb 7.5 g/dL (14.0-18.0) L 04/05/19 05:49 Hct 23.2 % (42.0-52.0) L 04/05/19 05:49 MCV 94.1 fL (80.0-94.0) H 04/05/19 05:49 MCH 30.4 pg (27.0-31.0) 04/05/19 05:49 MCHC 32.3 g/dL (32.0-36.0) 04/05/19 05:49 RDW 17.9 % (12.0-15.0) H 04/05/19 05:49 Plt Count 180 10^3/uL (130-450) 04/05/19 05:49 MPV 7.7 fL (7.4-11.4) 04/05/19 05:49 Neut # (Auto) 5.8 10^3/uL (1.5-6.6) 04/05/19 05:49 Lymph # (Auto) 1.3 10^3/uL (1.5-3.5) L 04/05/19 05:49 Patrick # (Auto) 0.7 10^3/uL (0.0-1.0) 04/05/19 05:49 Eos # (Auto) 0.2 10^3/uL (0.0-0.7) 04/05/19 05:49 Baso # (Auto) 0.1 10^3/uL (0.0-0.1) 04/05/19 05:49 Absolute Nucleated RBC 0.00 x10^3/uL 04/05/19 05:49 Nucleated RBC % 0.0 /100WBC 04/05/19 05:49 Sodium 138 mmol/L (135-145) 04/05/19 05:49 Potassium 3.5 mmol/L (3.5-5.0) 04/05/19 05:49 Chloride 108 mmol/L (101-111) 04/05/19 05:49 Carbon Dioxide 22 mmol/L (21-32) 04/05/19 05:49 Anion Gap 8.0 (6-13) 04/05/19 05:49 BUN 19 mg/dL (6-20) 04/05/19 05:49 Creatinine 0.8 mg/dL (0.6-1.2) 04/05/19 05:49 Estimated GFR (MDRD) 96 (>89) 04/05/19 05:49 Glucose 165 mg/dL (70-100) H 04/05/19 05:49 Glycated Hemoglobin 8.1 % (4.6-6.2) H 04/05/19 05:49 Estim Average Glucose 186 (70-100) H 04/05/19 05:49 Calcium 8.2 mg/dL (8.5-10.3) L 04/05/19 05:49 Magnesium 1.9 mg/dL (1.7-2.8) 04/05/19 05:49 Total Bilirubin 1.0 mg/dL (0.2-1.0) 04/05/19 05:49 GGT 342 IU/L (8-55) H 04/05/19 05:49 AST 44 IU/L (10-42) H 04/05/19 05:49 ALT 24 IU/L (10-60) 04/05/19 05:49 Alkaline Phosphatase 110 IU/L (42-121) 04/05/19 05:49 Troponin I < 0.04 ng/mL (<0.49) 04/04/19 12:45 Total Protein 6.1 g/dL (6.7-8.2) L 04/05/19 05:49 Albumin 3.3 g/dL (3.2-5.5) 04/05/19 05:49 Globulin 2.8 g/dL (2.1-4.2) 04/05/19 05:49 Albumin/Globulin Ratio 1.2 (1.0-2.2) 04/05/19 05:49 Lipase 33 U/L (22-51) 04/04/19 12:45 Last Dose Date UNK 04/04/19 12:45 Last Dose Time UNK 04/04/19 12:45 Digoxin < 0.2 ng/mL 04/04/19 12:45 Blood Type O POSITIVE 04/04/19 12:45 Blood Type Recheck O POSITIVE 04/04/19 13:10 Antibody Screen NEGATIVE 04/04/19 12:45 Crossmatch IS Only See Detail 04/04/19 12:45 ABX Reporting Has patient been on IV antibiotics over the past 48 hours?: No
--- NOTE | 2019-04-05 07:40 | ANESTHESIA ---
Pre-Anesthesia VS, & Labs - Diagnosis Diagnosis 1. GI bleed/melena. Hemodynamically stable. DDX includes UGI sources such as PUD, gastritis, H. pylori infection, atypical GERD, UGI neoplasm, dieulafoy lesion, angiodyplasia, or lower gi sources such as right sided colonic neoplasm or angiodysplasia. 2. Blood loss anemia. - Procedure EGD Vital Signs: Temp Pulse Resp BP Pulse Ox 37.3 C 76 16 111/60 96 04/05/19 04:21 04/05/19 04:21 04/05/19 04:21 04/05/19 04:21 04/05/19 04:21 Height 5 ft 6 in Weight (kg) 97 kg Body Mass Index 34.0 - NPO >8 hours - Lab Results Current Lab Results: Laboratory Tests 04/05/19 05:49: Glycated Hemoglobin 8.1 H, Estim Average Glucose 186 H 04/05/19 05:49: Sodium 138, Potassium 3.5, Chloride 108, Carbon Dioxide 22, Anion Gap 8.0, BUN 19, Creatinine 0.8, Estimated GFR (MDRD) 96, Glucose 165 H, Calcium 8.2 L, Magnesium 1.9, Total Bilirubin 1.0, GGT 342 H, AST 44 H, ALT 24, Alkaline Phosphatase 110, Total Protein 6.1 L, Albumin 3.3, Globulin 2.8, Albumin/Globulin Ratio 1.2 04/05/19 05:49: WBC 8.0, RBC 2.47 L, Hgb 7.5 L, Hct 23.2 L, MCV 94.1 H, MCH 30.4, MCHC 32.3, RDW 17.9 H, Plt Count 180, MPV 7.7, Neut # (Auto) 5.8, Lymph # (Auto) 1.3 L, Calvert # (Auto) 0.7, Eos # (Auto) 0.2, Baso # (Auto) 0.1, Absolute Nucleated RBC 0.00, Nucleated RBC % 0.0 04/05/19 05:40: POC Whole Bld Glucose 166 H 04/04/19 23:32: POC Whole Bld Glucose 181 H 04/04/19 13:10: Blood Type Recheck O POSITIVE 04/04/19 12:45: Troponin I < 0.04 04/04/19 12:45: Blood Type O POSITIVE, Antibody Screen NEGATIVE, Crossmatch IS Only See Detail 04/04/19 12:45: Sodium 140, Potassium 3.9, Chloride 106, Carbon Dioxide 23, Anion Gap 11.0, BUN 25 H, Creatinine 0.9, Estimated GFR (MDRD) 84 L, Glucose 144 H, Calcium 8.6, Total Bilirubin 1.0, AST 39, ALT 24, Alkaline Phosphatase 120, Total Protein 6.5 L, Albumin 3.5, Globulin 3.0, Albumin/Globulin Ratio 1.2, Lipase 33, Last Dose Date UNK, Last Dose Time UNK, Digoxin < 0.2 04/04/19 12:45: WBC 7.6, RBC 2.63 L, Hgb 8.1 L, Hct 24.4 L, MCV 92.7, MCH 30.7, MCHC 33.1, RDW 17.8 H, Plt Count 183, MPV 7.6, Neut # (Auto) 6.1, Lymph # (Auto) 0.8 L, [place]vert # (Auto) 0.5, Eos # (Auto) 0.1, Baso # (Auto) 0.1, Absolute Nucleated RBC 0.01, Nucleated RBC % 0.1 Lab results reviewed: Yes Fish Bones: 04/05/19 05:49 04/05/19 05:49 Home Medications and Allergies Home Medications: Ambulatory Orders Amiodarone HCl 200 mg PO DAILY 04/04/19 Insulin Lispro Protamin/Lispro [Humalog Mix 75-25 Vial] 50 units SUBQ QDDINNER 04/04/19 Midodrine 2.5 mg PO BID 04/04/19 Ubidecarenone [Coenzyme Q10] 20 meq PO DAILY 04/04/19 Active Medications Amiodarone HCl (Pacerone) 200 mg PO DAILY [facility] Carvedilol (Coreg) 6.25 mg PO BID [facility] Last Admin: 04/04/19 23:53 Dose: 6.25 mg Insulin Aspart (Novolog) 1 - 5 unit SUBQ 0800,1200,1700,2100 DYAN; Protocol Insulin Glargine (Lantus Solostar) 10 unit SUBQ QPM [facility] Ondansetron HCl (Zofran Inj) 4 mg IVP Q6HR PRN PRN Reason: Nausea / Vomiting Pantoprazole Sodium (Protonix) 40 mg IVP QDAC [facility] Last Admin: 04/05/19 06:13 Dose: 40 mg Polyethylene Glycol (Miralax) 17 gm PO DAILY [facility] Sodium Chloride (Normal Saline Flush 0.9%) 10 ml IVP PRN PRN PRN Reason: NEEDED PER PROVIDER ORDERS Sodium Chloride (Normal Saline Flush 0.9%) 10 ml IVP 0100,0900,1700 [facility] Last Admin: 04/05/19 06:13 Dose: 10 ml Apixaban [Eliquis] 5 mg PO BID 03/03/15 Aspirin [Aspir 81] 81 mg PO DAILY 03/03/15 Carvedilol [Coreg] 6.25 mg PO BID 03/03/15 Esomeprazole Magnesium [Nexium] 40 mg PO QDAC 03/03/15 Furosemide 40 mg PO DAILY 03/03/15 Lisinopril 5 mg PO DAILY 03/03/15 Metformin HCl [Metformin HCl ER] 500 mg PO BIDWM 03/03/15 Ranolazine [Ranexa] 1,000 mg PO BID 03/03/15 Rosuvastatin Calcium [Crestor] 40 mg PO DAILY 03/03/15 Sertraline HCl 100 mg PO DAILY 03/03/15 Spironolactone 25 mg PO DAILY 03/03/15 Insulin Lispro Protamin/Lispro [Humalog Mix 75-25 Vial] 70 units SUBQ QDBREAKFAST 01/19/16 Amiodarone HCl 200 mg PO DAILY 04/04/19 Insulin Lispro Protamin/Lispro [Humalog Mix 75-25 Vial] 50 units SUBQ QDDINNER 04/04/19 Midodrine 2.5 mg PO BID 04/04/19 Ubidecarenone [Coenzyme Q10] 20 meq PO DAILY 04/04/19 Allergies/Adverse Reactions: Allergies Allergy/AdvReac Type Severity Reaction Status Date / Time No Known Drug Allergies Allergy Verified 04/04/19 12:28 Anes History & Medical History - Anesthetic History Anesthesia Complications: reports: No previous complications - Medical History Cardiovascular: reports: Congestive heart failure (Patient reports his last echo showed EF40%), Hypertension, High cholesterol, Coronary artery disease, Angina, [place], Atrial flutter Pulmonary: reports: COPD, Shortness of breath, Sleep apnea, CPAP use Gastrointestinal: reports: GERD, GI bleed, Ulcers Urinary: reports: Benign prostate hypertrophy, Renal insuffiency, Nocturia, Frequency Neuro: reports: TIA, Peripheral neuropathy, Tremors (right hand tremor, weakness), Other (Patient reports he has 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 He was refused surgery at [facility].) Musculoskeletal: reports: Osteoarthritis, Fatigue, Chronic back pain Endocrine/Autoimmune: reports: Type 2 diabetes Skin: reports: None Smoking Status: Former smoker - Surgical History General: Cholecystectomy, EGD Cardiothoracic: CABG, Coronary stent, Pacemaker, AICD Orthopedic: Arthroscopic surgery, Spine surgery Exam General: Alert, Oriented x3, Cooperative, No acute distress Dental: Other (edentulous) Mouth Openin Fingerbreadth Neck Mobility: Normal Mallampati classification: II Thyromental Distance: greater than 6 cm Respiratory: Lungs clear, Normal breath sounds, No respiratory distress, No a ccessory muscle use Cardiovascular: Regular rate, Normal S1, Normal S2, No murmurs Mental/Cognitive Status: Alert/Oriented X3, Normal for patient Plan Anesthesia Type: MAC Consent for Procedure(s) Verified and Reviewed: Yes Code Status: Attempt Resuscitation ASA classification: 4-Incapacitating disease Is this case an emergency?: No
[2019-04-05] MEDS ORDERED: LACTATED RINGERS 1,000 ML IV ONE (07:48)
[2019-04-05] MEDS ORDERED: PROPOFOL 200 MG/20 ML VIAL IVP ONE (08:00)
[2019-04-05] MEDS ORDERED: MIDAZOLAM 2 MG/2 ML VIAL IVP ONE (08:00)
[2019-04-05] MEDS ORDERED: LIDO GARGLE 30 ML BOTTLE PO ONE (08:00)
--- NOTE | 2019-04-05 08:34 | PROCEDURE REPORT ---
Hospitalist Procedure Note - Procedure Note Procedure Note: EGD showed solitary small angiodysplasia in second part of duodenum intemittently oozing bright red blood; this was cauterized; it is unclear if this was the cause of all of the patient's bleeding and colonoscopy will be scheduled for tomorrow for further evaluation. See formal EGD report.
[2019-04-05] MEDS ORDERED: POLYETHYLENE GLYCOL 3350 17 GM PACKET PO SCH (09:00)
[2019-04-05] MEDS: INSULIN ASPART 300 UNIT/3 ML PEN SUBQ SCH ×4 (09:03→21:08)
[2019-04-05] MEDS: CARVEDILOL 12.5 MG TABLET PO SCH ×2 (09:37→21:08)
[2019-04-05] MEDS: AMIODARONE 200 MG TABLET PO SCH (09:38)
[2019-04-05] MEDS: SODIUM CHLORIDE 0.9% 500 ML IV PRN ×3 (14:48→23:32)
[2019-04-05] MEDS ORDERED: LORazepam 2 MG/ML VIAL IVP PRN (18:06)
[2019-04-05] MEDS ORDERED: LORazepam 1 MG TABLET PO PRN (18:06)
[2019-04-05] MEDS ORDERED: FUROSEMIDE 20 MG/2 ML VIAL IVP PRN (18:47)
[2019-04-05] MEDS ORDERED: ACETAMINOPHEN 325 MG TABLET PO ONE (18:47)
[2019-04-05] MEDS ORDERED: diphenhydrAMINE 25 MG CAPSULE PO ONE (18:48)
[2019-04-05] MEDS ORDERED: SODIUM CHLORIDE FLUSH 0.9% 10 ML SYRINGE ONE (18:54)
[2019-04-05] MEDS ORDERED: SODIUM CHLORIDE 0.9% 500 ML IV ONE (18:54)
[2019-04-05] MEDS ORDERED: SODIUM CHLORIDE 0.9% 1,000 ML IV SCH (19:00)
[2019-04-05] MEDS: SODIUM/POTASSIUM/MAG SULFATES 354 ML PREP KIT PO SCH (19:05)
--- NOTE | 2019-04-05 19:20 | PROVIDER PROGRESS NOTE ---
Subjective - Prog Note Date Prog Note Date: 04/05/19 Prog Note Time: 17:00 - Subjective Pt reports feeling: Improved Subjective: Richard is agreeable to a blood transfusion tonight to prepare for his colonoscopy in the morning. He continues to have dizziness with standing, has light blood pressures (114/62) and shortness of breath with activity. Current Medications - Current Medications Current Medications: Active Medications: Amiodarone HCl (Pacerone) 200 mg PO DAILY DYAN Carvedilol (Coreg) 6.25 mg PO BID DYAN Furosemide (Lasix Inj 20mg Vial) 20 mg IVP ONCE PRN Sodium Chloride (Normal Saline 0.9%) 500 mls @ 0 mls/hr IV Q24H PRN Multivitamins 10 ml/ Thiamine HCl 100 mg/ Folic Acid 1 mg/Sodium Chloride 1,011.2 mls @ 100 mls/hr IV DAILY DYAN Sodium Chloride (Normal Saline 0.9%) 1,000 mls @ 0 mls/hr IV .Q0M DYAN Insulin Aspart (Novolog) 1 - 5 unit SUBQ 0800,1200,1700,2100 DYAN; Protocol Insulin Glargine (Lantus Solostar) 10 unit SUBQ QPM DYAN Lorazepam (Ativan) 1 mg PO Q1H PRN; Protocol Lorazepam (Ativan Inj (Vial)) 1 mg IVP Q30M PRN; Protocol Ondansetron HCl (Zofran Inj) 4 mg IVP Q6HR PRN Pantoprazole Sodium (Protonix) 40 mg PO QDAC DYAN Apixaban [Eliquis] 5 mg PO BID 03/03/15 Aspirin [Aspir 81] 81 mg PO DAILY 03/03/15 Carvedilol [Coreg] 6.25 mg PO BID 03/03/15 Esomeprazole Magnesium [Nexium] 40 mg PO QDAC 03/03/15 Furosemide 40 mg PO DAILY 03/03/15 Lisinopril 5 mg PO DAILY 03/03/15 Metformin HCl [Metformin HCl ER] 500 mg PO BIDWM 03/03/15 Ranolazine [Ranexa] 1,000 mg PO BID 03/03/15 Rosuvastatin Calcium [Crestor] 40 mg PO DAILY 03/03/15 Sertraline HCl 100 mg PO DAILY 03/03/15 Spironolactone 25 mg PO DAILY 03/03/15 Insulin Lispro Protamin/Lispro [Humalog Mix 75-25 Vial] 70 units SUBQ QDBREAKFAST 01/19/16 Amiodarone HCl 200 mg PO DAILY 04/04/19 Insulin Lispro Protamin/Lispro [Humalog Mix 75-25 Vial] 50 units SUBQ QDDINNER 04/04/19 Midodrine 2.5 mg PO BID 04/04/19 Ubidecarenone [Coenzyme Q10] 20 meq PO DAILY 04/04/19 Objective - Vital Signs/Intake & Output Reviewed Vital Signs: Yes Vital Signs: Vital Signs x48h Temp Pulse Resp BP Pulse Ox 04/05/19 15:46 36.6 C 68 20 120/67 95 04/05/19 14:50 36.5 C 65 20 125/60 96 04/05/19 12:50 36.5 C 63 20 129/61 93 04/05/19 11:32 36.7 C 60 20 114/62 97 Intake & Output: Intake & Output 04/02/19 04/03/19 04/04/19 04/05/19 23:59 23:59 23:59 23:59 Intake Total 537 1339 Output Total 300 535 Balance 237 804 - Objective General Appearance: positive: No acute distress, Alert Eyes Bilateral: positive: PERRL ENT: positive: Pharynx nml, No signs of dehydration Neck: positive: Thyroid nml, No JVD, Trachea midline Respiratory: positive: Chest non-tender, No respiratory distress, Other (diminished with few scattered crackles bilaterally) Cardiovascular: positive: Regular rate & rhythm, No gallop, Systolic murmur, Decreased pulse(s) Peripheral Pulses: 1+ Radial (R), 1+ Radial (L) Abdomen: positive: Nml bowel sounds, Tenderness, Guarding, Hepatomegaly, Other (rounded, soft) Back: positive: Nml inspection Skin: positive: No rash, Warm, Dry Extremities: positive: Non-tender, Full ROM, Pedal edema (trace) Neurologic/Psychiatric: positive: Oriented x3, CN's nml (2-12), Motor nml, Sensation nml, Depressed mood/affect Reflexes: Bicep (R): 3+, Bicep (L): 3+ - Lab Results Fish Bones: 04/06/19 05:56 04/06/19 05:56 Other Labs: Lab Results x24hrs 04/05/19 04/05/19 04/05/19 Range/Units 16:31 11:28 05:49 WBC (4.8-10.8) x10^3/uL RBC (4.70-6.10) 10^6/uL Hgb (14.0-18.0) g/dL Hct (42.0-52.0) % MCV (80.0-94.0) fL MCH (27.0-31.0) pg MCHC (32.0-36.0) g/dL RDW (12.0-15.0) % Plt Count (130-450) 10^3/uL MPV (7.4-11.4) fL Neut # (Auto) (1.5-6.6) 10^3/uL Lymph # (Auto) (1.5-3.5) 10^3/uL [place] # (Auto) (0.0-1.0) 10^3/uL Eos # (Auto) (0.0-0.7) 10^3/uL Baso # (Auto) (0.0-0.1) 10^3/uL Absolute Nucleated RBC x10^3/uL Nucleated RBC % /100WBC Sodium (135-145) mmol/L Potassium (3.5-5.0) mmol/L Chloride (101-111) mmol/L Carbon Dioxide (21-32) mmol/L Anion Gap (6-13) BUN (6-20) mg/dL Creatinine (0.6-1.2) mg/dL Estimated GFR (MDRD) (>89) Glucose (70-100) mg/dL POC Whole Bld Glucose 247 H 152 H (70 - 100) mg/dL Glycated Hemoglobin 8.1 H (4.6-6.2) % Estim Average Glucose 186 H (70-100) Calcium (8.5-10.3) mg/dL Magnesium (1.7-2.8) mg/dL Total Bilirubin (0.2-1.0) mg/dL GGT (8-55) IU/L AST (10-42) IU/L ALT (10-60) IU/L Alkaline Phosphatase (42-121) IU/L Total Protein (6.7-8.2) g/dL Albumin (3.2-5.5) g/dL Globulin (2.1-4.2) g/dL Albumin/Globulin Ratio (1.0-2.2) Blood Type Antibody Screen Crossmatch IS Only 04/05/19 04/05/19 04/05/19 Range/Units 05:49 05:49 05:40 WBC 8.0 (4.8-10.8) x10^3/uL RBC 2.47 L (4.70-6.10) 10^6/uL Hgb 7.5 L (14.0-18.0) g/dL Hct 23.2 L (42.0-52.0) % MCV 94.1 H (80.0-94.0) fL MCH 30.4 (27.0-31.0) pg MCHC 32.3 (32.0-36.0) g/dL RDW 17.9 H (12.0-15.0) % Plt Count 180 (130-450) 10^3/uL MPV 7.7 (7.4-11.4) fL Neut # (Auto) 5.8 (1.5-6.6) 10^3/uL Lymph # (Auto) 1.3 L (1.5-3.5) 10^3/uL [place] # (Auto) 0.7 (0.0-1.0) 10^3/uL Eos # (Auto) 0.2 (0.0-0.7) 10^3/uL Baso # (Auto) 0.1 (0.0-0.1) 10^3/uL Absolute Nucleated RBC 0.00 x10^3/uL Nucleated RBC % 0.0 /100WBC Sodium 138 (135-145) mmol/L Potassium 3.5 (3.5-5.0) mmol/L Chloride 108 (101-111) mmol/L Carbon Dioxide 22 (21-32) mmol/L Anion Gap 8.0 (6-13) BUN 19 (6-20) mg/dL Creatinine 0.8 (0.6-1.2) mg/dL Estimated GFR (MDRD) 96 (>89) Glucose 165 H (70-100) mg/dL POC Whole Bld Glucose 166 H (70 - 100) mg/dL Glycated Hemoglobin (4.6-6.2) % Estim Average Glucose (70-100) Calcium 8.2 L (8.5-10.3) mg/dL Magnesium 1.9 (1.7-2.8) mg/dL Total Bilirubin 1.0 (0.2-1.0) mg/dL GGT 342 H (8-55) IU/L AST 44 H (10-42) IU/L ALT 24 (10-60) IU/L Alkaline Phosphatase 110 (42-121) IU/L Total Protein 6.1 L (6.7-8.2) g/dL Albumin 3.3 (3.2-5.5) g/dL Globulin 2.8 (2.1-4.2) g/dL Albumin/Globulin Ratio 1.2 (1.0-2.2) Blood Type Antibody Screen Crossmatch IS Only 04/04/19 04/04/19 Range/Units 23:32 12:45 WBC (4.8-10.8) x10^3/uL RBC (4.70-6.10) 10^6/uL Hgb (14.0-18.0) g/dL Hct (42.0-52.0) % MCV (80.0-94.0) fL MCH (27.0-31.0) pg MCHC (32.0-36.0) g/dL RDW (12.0-15.0) % Plt Count (130-450) 10^3/uL MPV (7.4-11.4) fL Neut # (Auto) (1.5-6.6) 10^3/uL Lymph # (Auto) (1.5-3.5) 10^3/uL [place] # (Auto) (0.0-1.0) 10^3/uL Eos # (Auto) (0.0-0.7) 10^3/uL Baso # (Auto) (0.0-0.1) 10^3/uL Absolute Nucleated RBC x10^3/uL Nucleated RBC % /100WBC Sodium (135-145) mmol/L Potassium (3.5-5.0) mmol/L Chloride (101-111) mmol/L Carbon Dioxide (21-32) mmol/L Anion Gap (6-13) BUN (6-20) mg/dL Creatinine (0.6-1.2) mg/dL Estimated GFR (MDRD) (>89) Glucose (70-100) mg/dL POC Whole Bld Glucose 181 H (70 - 100) mg/dL Glycated Hemoglobin (4.6-6.2) % Estim Average Glucose (70-100) Calcium (8.5-10.3) mg/dL Magnesium (1.7-2.8) mg/dL Total Bilirubin (0.2-1.0) mg/dL GGT (8-55) IU/L AST (10-42) IU/L ALT (10-60) IU/L Alkaline Phosphatase (42-121) IU/L Total Protein (6.7-8.2) g/dL Albumin (3.2-5.5) g/dL Globulin (2.1-4.2) g/dL Albumin/Globulin Ratio (1.0-2.2) Blood Type O POSITIVE Antibody Screen NEGATIVE Crossmatch IS Only See Detail ABX Reporting Has patient been on IV antibiotics over the past 48 hours?: No Assessment/Plan - Problem List (1) GI bleed Impression: - Patient reported tarry stools at home -The patient states that he was started on amitriptyline for ongoing insomnia and in mid February was 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 - He believes that since starting the Midodrine, he has been having bad side effects and that this medication has caused his black stools - He admits to a recent increase in his ibuprofen use in which he takes 2-3 tablets each night before bed to promote sleep - He admits to alcohol use and states that he and his will usually drink 1 bottle of wine between the 2 of them each night - He denies evidence of any other bleeding, mild loss of appetite - Now status post EGD and procedure note states; EGD showed solitary small angiodysplasia in second part of duodenum intermittently oozing bright red blood, which was cauterized - It was unclear if this was the sole culprit to his bleeding Plan: Await colonoscopy tomorrow AM Qualifiers: GI bleed type/associated pathology: melena Qualified Code(s): K92.1 - Melena (2) Acute blood loss anemia Impression: - baseline hemoglobin is ~ 13 - H/H on admission was 8.1/24.4 - Patient reported tarry stools prior to admission - Patient claims that this started after he was put on midodrine - He also admits to some alcohol use, ibuprofen use and is on Eliquis - Evidence of current alcoholism with an elevated GGT level of 342 - Transfuse for hemoglobin less than 8 given this patient's extensive cardiac history - Patient is symptomatic with his low blood counts as he complains of shortness of breath with activity, dizziness and poor endurance Plan: Transfuse 1 units of PRBCs this evening, labs in the AM (3) Syncope Impression: - The patient states that for the past week his syncope episodes have been more frequent in which he becomes very weak, looses the ability to speak and has to quickly find a place to sit in order to prevent himself from falling all the way to the floor -These episodes last 15-20 minutes and he has double vision with left eye fogginess - For the past 1 year he has noticed a slight tremor and weakness to his RUE of which he is right-hand dominant - He believes that he has been to at least 5 specialists within the past year and his illness remains "a mystery" to every medical professional - He claims that he will be traveling to the [facility] in [place] in the very near future - This symptom is likely a result of his declining blood counts Plan: Continue GI work up, give 1 unit of PRBCs ashwin (4) Alcohol use disorder, moderate, dependence Impression: - GGT was elevated to 342 - Patient states that he has "cut back" on his daily alcohol use - Admits to he and his sharing a bottle of wine usually at night - No evidence of active withdrawal as he has no headaches, nausea, hallucinations, anxiety, sweating, chest pain, HTN or agitation on exam Plan: CIWA protocol (5) Patient takes NSAID (non-steroid anti-inflammatory drug) Impression: - Patient states that he has been taking 2 to 3 tablets of ibuprofen nightly for insomnia - Has also increased his use lately to some doses during the day Plan: Continue to encourage cessation as this can cause bleeding and should not be taken while on Eliquis (6) Diabetes mellitus type 2 with complications Impression: - Hemoglobin A1C was 8.1% - His goal should be ~8% given his other illnesses and estimated length of life - Blood sugars have been 144-247 - Restricted diet since having EGD and now will prep for colonoscopy Plan: Continue SSI, blood sugar checks, resume carb controlled diet after colonoscopy (7) Medical non-compliance Impression: - Patient seems resistant to suggestions initially - Will attempt to re- inform him of the most likely culprits of his bleeding again - Encouraged to stop drinking with each visit Plan: Continue to encourage compliance
[2019-04-05] MEDS ORDERED: INSULIN GLARGINE 300 UNIT/3 ML PEN SUBQ SCH (21:00)
[2019-04-06] MEDS: SODIUM CHLORIDE FLUSH 0.9% 10 ML SYRINGE IVP SCH ×2 (00:18→09:42)
[2019-04-06] MEDS: SODIUM/POTASSIUM/MAG SULFATES 354 ML PREP KIT PO SCH (04:54)
[2019-04-06 06:07] LABS: BASOPHILS # (AUTO) 0.1 10^3/uL (0.0-0.1); BASOPHILS % (AUTO) 1.2 %; EOSINOPHILS # (AUTO) 0.3 10^3/uL (0.0-0.7); EOSINOPHILS % (AUTO) 3.4 %; HGB - HEMOGLOBIN 9.3 g/dL (14.0-18.0); LYMPHOCYTES # (AUTO) 1.3 10^3/uL (1.5-3.5); MEAN CORPUSCULAR HEMOGLOBIN 30.5 pg (27.0-31.0); MEAN CORPUSCULAR HGB CONC 33.1 g/dL (32.0-36.0); MEAN PLATELET VOLUME 7.4 fL (7.4-11.4); MONOCYTES # (AUTO) 0.5 10^3/uL (0.0-1.0); NEUTROPHILS # (AUTO) 6.3 10^3/uL (1.5-6.6); NEUTROPHILS % (AUTO) 74.4 %; PLT - PLATELET COUNT 195 10^3/uL (130-450); RED BLOOD COUNT 3.04 10^6/uL (4.70-6.10); RED CELL DISTRIBUTION WIDTH 18.9 % (12.0-15.0); WHITE BLOOD COUNT 8.4 x10^3/uL (4.8-10.8)
[2019-04-06 06:15] LABS: ALBUMIN 3.8 g/dL (3.2-5.5); ALBUMIN/GLOBULIN RATIO 1.1 (1.0-2.2); BILIRUBIN,TOTAL 1.1 mg/dL (0.2-1.0); CALCIUM 8.3 mg/dL (8.5-10.3); CREATININE 0.8 mg/dL (0.6-1.2); TOTAL PROTEIN 7.2 g/dL (6.7-8.2)
[2019-04-06] MEDS ORDERED: PANTOPRAZOLE 40 MG TABLET PO SCH (07:00)
[2019-04-06] MEDS ORDERED: LACTATED RINGERS 1,000 ML IV ONE (08:00)
--- NOTE | 2019-04-06 08:01 | PROVIDER PROGRESS NOTE ---
Assessment/Plan - Problem List (1) GI bleed Qualifiers: GI bleed type/associated pathology: melena Qualified Code(s): K92.1 - Melena Assessment/Plan: No clinical signs of recurrent/active bleeding at present; plan: colonoscopy today for further evaluation. PAR conf with patient and consent obtained. - Current Meds Current Meds: Current Medications Generic Name Dose Route Start Last Admin Trade Name Freq PRN Reason Stop Dose Admin Amiodarone HCl 200 mg 04/05/19 09:00 04/05/19 09:38 Pacerone PO 200 mg DAILY DYAN Administration Carvedilol 6.25 mg 04/04/19 22:00 04/05/19 21:08 Coreg PO 6.25 mg BID DYAN Administration Furosemide 20 mg 04/05/19 18:47 04/05/19 23:25 Lasix Inj 20mg Vial IVP 04/06/19 18:46 20 mg ONCE PRN Administration NEEDED PER PROVIDER ORDERS Sodium Chloride 500 mls @ 0 mls/hr 04/05/19 14:19 04/06/19 05:30 Normal Saline 0.9% IV 30 mls/hr Q24H PRN Infusion TKO RATE TKO Insulin Aspart 1 - 5 unit 04/05/19 08:00 04/05/19 21:08 Novolog SUBQ 2 unit 0800,1200,1700,2100 DYAN Administration Protocol Insulin Glargine 10 unit 04/05/19 21:00 04/05/19 21:12 Lantus Solostar SUBQ 10 unit QPM DYAN Administration Pantoprazole Sodium 40 mg 04/06/19 07:00 04/06/19 06:39 Protonix PO 40 mg QDAC DYAN Administration Sodium Chloride 10 ml 04/04/19 17:00 04/06/19 00:18 Normal Saline Flush 0.9% IVP Not Given 0100,0900,1700 DYAN - Lab Result Lab results reviewed: Yes Fish Bone Diagrams: 04/06/19 05:56 04/06/19 05:56 Other Lab Results: received 1 unit PRBCs yesterday - Additional Planning Condition/Complexity: Stable My Orders: My Active Orders 04/06/19 00:01 NPO except Meds at Midnight [DIET] 04/06/19 07:00 Pantoprazole [Protonix] 40 mg PO QDAC Plan Discussed with:: Patient, Family Time Spent: 15-30 minutes Subjective - Subjective Patient Reports: Resting Comfortably, No Complaints (No abd pain/N/V or melena/hematochezia; tolerated bowel prep well) Objective Vital Signs: Vital Signs - 24 hr 04/05/19 04/05/19 04/05/19 08:20 09:00 10:02 Temperature 36.9 C 36.5 C Heart Rate Heart Rate [ 67 70 63 Brachial] Respiratory 24 20 24 Rate Blood Pressure Blood Pressure 97/55 L 120/67 113/91 H [Right Brachial artery] O2 Saturation 96 96 93 04/05/19 04/05/19 04/05/19 11:32 12:50 14:50 Temperature 36.7 C 36.5 C 36.5 C Heart Rate Heart Rate [ 60 63 65 Brachial] Respiratory 20 20 20 Rate Blood Pressure Blood Pressure 114/62 129/61 125/60 [Right Brachial artery] O2 Saturation 97 93 96 04/05/19 04/05/19 04/05/19 15:46 19:26 19:41 Temperature 36.6 C 36.3 C L 36.2 C L Heart Rate 64 60 Heart Rate [ 68 Brachial] Respiratory 20 16 24 Rate Blood Pressure 142/74 H 144/60 H Blood Pressure 120/67 [Right Brachial artery] O2 Saturation 95 04/05/19 04/05/19 04/06/19 19:46 23:20 00:17 Temperature 36.3 C L 36.7 C 36.3 C L Heart Rate 69 Heart Rate [ 66 69 Brachial] Respiratory 20 18 18 Rate Blood Pressure 151/68 H Blood Pressure 142/74 H 151/68 H [Right Brachial artery] O2 Saturation 97 97 04/06/19 04/06/19 05:20 07:49 Temperature 36.7 C 36.6 C Heart Rate Heart Rate [ 61 64 Brachial] Respiratory 20 16 Rate Blood Pressure Blood Pressure 140/75 H 111/58 L [Right Brachial artery] O2 Saturation 97 98 Oxygen O2 Source Room air I&O (Last 24 Hrs): Intake and Output Totals x24h 04/04/19 04/05/19 04/06/19 23:59 23:59 23:59 Intake Total 537 3863 179 Output Total 300 535 Balance 237 3328 179 General: Alert, Oriented x3, Cooperative, No acute distress Neuro: Alert Abdomen: Soft, No tenderness, No hepatospenomegaly, No masses Extremities: No edema, No tenderness/swelling - Results Results: Laboratory Results WBC 8.4 x10^3/uL (4.8-10.8) 04/06/19 05:56 RBC 3.04 10^6/uL (4.70-6.10) L 04/06/19 05:56 Hgb 9.3 g/dL (14.0-18.0) L 04/06/19 05:56 Hct 27.9 % (42.0-52.0) L 04/06/19 05:56 MCV 92.0 fL (80.0-94.0) 04/06/19 05:56 MCH 30.5 pg (27.0-31.0) 04/06/19 05:56 MCHC 33.1 g/dL (32.0-36.0) 04/06/19 05:56 RDW 18.9 % (12.0-15.0) H 04/06/19 05:56 Plt Count 195 10^3/uL (130-450) 04/06/19 05:56 MPV 7.4 fL (7.4-11.4) 04/06/19 05:56 Neut # (Auto) 6.3 10^3/uL (1.5-6.6) 04/06/19 05:56 Lymph # (Auto) 1.3 10^3/uL (1.5-3.5) L 04/06/19 05:56 [place] # (Auto) 0.5 10^3/uL (0.0-1.0) 04/06/19 05:56 Eos # (Auto) 0.3 10^3/uL (0.0-0.7) 04/06/19 05:56 Baso # (Auto) 0.1 10^3/uL (0.0-0.1) 04/06/19 05:56 Absolute Nucleated RBC 0.01 x10^3/uL 04/06/19 05:56 Nucleated RBC % 0.1 /100WBC 04/06/19 05:56 Sodium 139 mmol/L (135-145) 04/06/19 05:56 Potassium 3.4 mmol/L (3.5-5.0) L 04/06/19 05:56 Chloride 106 mmol/L (101-111) 04/06/19 05:56 Carbon Dioxide 22 mmol/L (21-32) 04/06/19 05:56 Anion Gap 11.0 (6-13) 04/06/19 05:56 BUN 13 mg/dL (6-20) 04/06/19 05:56 Creatinine 0.8 mg/dL (0.6-1.2) 04/06/19 05:56 Estimated GFR (MDRD) 96 (>89) 04/06/19 05:56 Glucose 158 mg/dL (70-100) H 04/06/19 05:56 POC Whole Bld Glucose 149 mg/dL (70 - 100) H 04/06/19 05:55 Glycated Hemoglobin 8.1 % (4.6-6.2) H 04/05/19 05:49 Estim Average Glucose 186 (70-100) H 04/05/19 05:49 Calcium 8.3 mg/dL (8.5-10.3) L 04/06/19 05:56 Magnesium 1.9 mg/dL (1.7-2.8) 04/05/19 05:49 Total Bilirubin 1.1 mg/dL (0.2-1.0) H 04/06/19 05:56 GGT 342 IU/L (8-55) H 04/05/19 05:49 AST 50 IU/L (10-42) H 04/06/19 05:56 ALT 30 IU/L (10-60) 04/06/19 05:56 Alkaline Phosphatase 136 IU/L (42-121) H 04/06/19 05:56 Troponin I < 0.04 ng/mL (<0.49) 04/04/19 12:45 Total Protein 7.2 g/dL (6.7-8.2) 04/06/19 05:56 Albumin 3.8 g/dL (3.2-5.5) 04/06/19 05:56 Globulin 3.4 g/dL (2.1-4.2) 04/06/19 05:56 Albumin/Globulin Ratio 1.1 (1.0-2.2) 04/06/19 05:56 Lipase 33 U/L (22-51) 04/04/19 12:45 Last Dose Date UNK 04/04/19 12:45 Last Dose Time UNK 04/04/19 12:45 Digoxin < 0.2 ng/mL 04/04/19 12:45 Blood Type O POSITIVE 04/04/19 12:45 Blood Type Recheck O POSITIVE 04/04/19 13:10 Antibody Screen NEGATIVE 04/04/19 12:45 Crossmatch IS Only See Detail 04/04/19 12:45 ABX Reporting Has patient been on IV antibiotics over the past 48 hours?: No
--- NOTE | 2019-04-06 08:58 | ANESTHESIA ---
Pre-Anesthesia VS, & Labs - Diagnosis Diagnosis 1. GI bleed/melena. Hemodynamically stable. DDX includes UGI sources such as PUD, gastritis, H. pylori infection, atypical GERD, UGI neoplasm, dieulafoy lesion, angiodyplasia, or lower gi sources such as right sided colonic neoplasm or angiodysplasia. 2. Blood loss anemia. - Procedure colonoscopy Vital Signs: Temp Pulse Resp BP Pulse Ox 36.2 C L 60 24 105/55 L 99 04/06/19 08:44 04/06/19 08:52 04/06/19 08:52 04/06/19 08:52 04/06/19 08:52 Height 5 ft 6 in Weight (kg) 97 kg Body Mass Index 34.0 - NPO >8 hours - Lab Results Current Lab Results: Laboratory Tests 04/06/19 08:49: POC Whole Bld Glucose 162 H 04/06/19 05:56: Sodium 139, Potassium 3.4 L, Chloride 106, Carbon Dioxide 22, Anion Gap 11.0, BUN 13, Creatinine 0.8, Estimated GFR (MDRD) 96, Glucose 158 H, Calcium 8.3 L, Total Bilirubin 1.1 H, AST 50 H, ALT 30, Alkaline Phosphatase 136 H, Total Protein 7.2, Albumin 3.8, Globulin 3.4, Albumin/Globulin Ratio 1.1 04/06/19 05:56: WBC 8.4, RBC 3.04 L, Hgb 9.3 L, Hct 27.9 L, MCV 92.0, MCH 30.5, MCHC 33.1, RDW 18.9 H, Plt Count 195, MPV 7.4, Neut # (Auto) 6.3, Lymph # (Auto) 1.[address] L, [place] # (Auto) 0.5, Eos # (Auto) 0.3, Baso # (Auto) 0.1, Absolute Nucleated RBC 0.01, Nucleated RBC % 0.1 04/06/19 05:55: POC Whole Bld Glucose 149 H 04/05/19 20:36: POC Whole Bld Glucose 221 H 04/05/19 16:31: POC Whole Bld Glucose 247 H 04/05/19 11:28: POC Whole Bld Glucose 152 H 04/05/19 05:49: Glycated Hemoglobin 8.1 H, Estim Average Glucose 186 H 04/05/19 05:49: Sodium 138, Potassium 3.5, Chloride 108, Carbon Dioxide 22, Anion Gap 8.0, BUN 19, Creatinine 0.8, Estimated GFR (MDRD) 96, Glucose 165 H, Calcium 8.2 L, Magnesium 1.9, Total Bilirubin 1.0, GGT 342 H, AST 44 H, ALT 24, Alkaline Phosphatase 110, Total Protein 6.1 L, Albumin 3.3, Globulin 2.8, Albumin/Globulin Ratio 1.2 04/05/19 05:49: WBC 8.0, RBC 2.47 L, Hgb 7.5 L, Hct 23.2 L, MCV 94.1 H, MCH 30.4, MCHC 32.3, RDW 17.9 H, Plt Count 180, MPV 7.7, Neut # (Auto) 5.8, Lymph # (Auto) 1.[address] L, [place] # (Auto) 0.7, Eos # (Auto) 0.2, Baso # (Auto) 0.1, Absolute Nucleated RBC 0.00, Nucleated RBC % 0.0 04/05/19 05:40: POC Whole Bld Glucose 166 H 04/04/19 23:32: POC Whole Bld Glucose 181 H 04/04/19 13:10: Blood Type Recheck O POSITIVE 04/04/19 12:45: Troponin I < 0.04 04/04/19 12:45: Blood Type O POSITIVE, Antibody Screen NEGATIVE, Crossmatch IS Only See Detail 04/04/19 12:45: Sodium 140, Potassium 3.9, Chloride 106, Carbon Dioxide 23, Anion Gap 11.0, BUN 25 H, Creatinine 0.9, Estimated GFR (MDRD) 84 L, Glucose 144 H, Calcium 8.6, Total Bilirubin 1.0, AST 39, ALT 24, Alkaline Phosphatase 120, Total Protein 6.5 L, Albumin 3.5, Globulin 3.0, Albumin/Globulin Ratio 1.2, Lipase 33, Last Dose Date UNK, Last Dose Time UNK, Digoxin < 0.2 04/04/19 12:45: WBC 7.6, RBC 2.63 L, Hgb 8.1 L, Hct 24.4 L, MCV 92.7, MCH 30.7, MCHC 33.1, RDW 17.8 H, Plt Count 183, MPV 7.6, Neut # (Auto) 6.1, Lymph # (Auto) 0.[address] L, [place] # (Auto) 0.5, Eos # (Auto) 0.1, Baso # (Auto) 0.1, Absolute Nucleated RBC 0.01, Nucleated RBC % 0.1 Fish Bones: 04/06/19 05:56 04/06/19 05:56 Home Medications and Allergies Home Medications: Ambulatory Orders Amiodarone HCl 200 mg PO DAILY 04/04/19 Insulin Lispro Protamin/Lispro [Humalog Mix 75-25 Vial] 50 units SUBQ QDDINNER 04/04/19 Midodrine 2.5 mg PO BID 04/04/19 Ubidecarenone [Coenzyme Q10] 20 meq PO DAILY 04/04/19 Active Medications Amiodarone HCl ([place]) 200 mg PO DAILY [facility] Last Admin: 04/05/19 09:38 Dose: 200 mg Carvedilol (Coreg) 6.25 mg PO BID [facility] Last Admin: 04/05/19 21:08 Dose: 6.25 mg Furosemide (Lasix Inj 20mg Vial) 20 mg IVP ONCE PRN PRN Reason: NEEDED PER PROVIDER ORDERS Stop: 04/06/19 18:46 Last Admin: 04/05/19 23:25 Dose: 20 mg Sodium Chloride (Normal Saline 0.9%) 500 mls @ 0 mls/hr IV Q24H PRN PRN Reason: TKO RATE Last Infusion: 04/06/19 05:30 Dose: 30 mls/hr Multivitamins 10 ml/ Thiamine HCl 100 mg/ Folic Acid 1 mg/Sodium Chloride 1,011.2 mls @ 100 mls/hr IV DAILY [facility] Sodium Chloride (Normal Saline 0.9%) 1,000 mls @ 0 mls/hr IV .Q0M [facility] Insulin Aspart (Novolog) 1 - 5 unit SUBQ 0800,1200,1700,2100 [facility]; Protocol Last Admin: 04/05/19 21:08 Dose: 2 unit Insulin Glargine (Lantus Solostar) 10 unit SUBQ QPM [facility] Last Admin: 04/05/19 21:12 Dose: 10 unit Lorazepam (Ativan) 1 mg PO Q1H PRN; Protocol PRN Reason: CIWA > 8 Lorazepam (Ativan Inj (Vial)) 1 mg IVP Q30M PRN; Protocol PRN Reason: CIWA >8 Ondansetron HCl (Zofran Inj) 4 mg IVP Q6HR PRN PRN Reason: Nausea / Vomiting Pantoprazole Sodium (Protonix) 40 mg PO QDAC [facility] Last Admin: 04/06/19 06:39 Dose: 40 mg Sodium Chloride (Normal Saline Flush 0.9%) 10 ml IVP PRN PRN PRN Reason: NEEDED PER PROVIDER ORDERS Sodium Chloride (Normal Saline Flush 0.9%) 10 ml IVP 0100,0900,1700 [facility] Last Admin: 04/06/19 00:18 Dose: Not Given Apixaban [Eliquis] 5 mg PO BID 03/03/15 Aspirin [Aspir 81] 81 mg PO DAILY 03/03/15 Carvedilol [Coreg] 6.25 mg PO BID 03/03/15 Esomeprazole Magnesium [Nexium] 40 mg PO QDAC 03/03/15 Furosemide 40 mg PO DAILY 03/03/15 Lisinopril 5 mg PO DAILY 03/03/15 Metformin HCl [Metformin HCl ER] 500 mg PO BIDWM 03/03/15 Ranolazine [Ranexa] 1,000 mg PO BID 03/03/15 Rosuvastatin Calcium [Crestor] 40 mg PO DAILY 03/03/15 Sertraline HCl 100 mg PO DAILY 03/03/15 Spironolactone 25 mg PO DAILY 03/03/15 Insulin Lispro Protamin/Lispro [Humalog Mix 75-25 Vial] 70 units SUBQ QDBREAKFAST 01/19/16 Amiodarone HCl 200 mg PO DAILY 04/04/19 Insulin Lispro Protamin/Lispro [Humalog Mix 75-25 Vial] 50 units SUBQ QDDINNER 04/04/19 Midodrine 2.5 mg PO BID 04/04/19 Ubidecarenone [Coenzyme Q10] 20 meq PO DAILY 04/04/19 Allergies/Adverse Reactions: Allergies Allergy/AdvReac Type Severity Reaction Status Date / Time No Known Drug Allergies Allergy Verified 04/04/19 12:28 Anes History & Medical History - Anesthetic History Anesthesia Complications: reports: No previous complications Family history of Anesthesia Complications: Denies Family history of Malignant Hyperthermia: Denies - Medical History Cardiovascular: reports: Congestive heart failure, Hypertension, High cholesterol, Coronary artery disease, Angina, [place], Atrial flutter Pulmonary: reports: COPD, Shortness of breath, Sleep apnea, CPAP use Gastrointestinal: reports: GERD, GI bleed, Ulcers Urinary: reports: Benign prostate hypertrophy, Renal insuffiency, Nocturia, Frequency Neuro: reports: TIA, Peripheral neuropathy, Tremors (right hand tremor, weakness) Musculoskeletal: reports: Osteoarthritis, Fatigue, Chronic back pain Endocrine/Autoimmune: reports: Type 2 diabetes Skin: reports: None Smoking Status: Former smoker - Surgical History General: Cholecystectomy, EGD Cardiothoracic: CABG, Coronary stent, Pacemaker, AICD Orthopedic: Arthroscopic surgery, Spine surgery Exam General: Alert, Oriented x3, Cooperative, No acute distress Dental: Other (edentulous) Mouth Openin Fingerbreadth Neck Mobility: Reduced Mallampati classification: III Thyromental Distance: greater than 6 cm Respiratory: Lungs clear, Normal breath sounds, No respiratory distress, No accessory muscle use Cardiovascular: Regular rate, Normal S1, Normal S2, No murmurs Plan Anesthesia Type: MAC Consent for Procedure(s) Verified and Reviewed: Yes Code Status: Attempt Resuscitation ASA classification: 5-Moribund Is this case an emergency?: No
--- NOTE | 2019-04-06 09:12 | PROCEDURE REPORT ---
Hospitalist Procedure Note - Procedure Note Procedure Note: Colonoscopy showed 3 small polyps which were removed and mild diverticulosis. No etiology for recent GI bleed idendified. See separate full procedure note for details. Rec CT abd/pelvis for further evaluation and to assess for a small bowel lesion.
[2019-04-06] MEDS ORDERED: IOVERSOL 320 50 ML VIAL ONE (09:36)
[2019-04-06] MEDS ORDERED: IOVERSOL 320 100 ML VIAL IVP ONE ×2 (09:36→11:10)
[2019-04-06] MEDS: AMIODARONE 200 MG TABLET PO SCH (09:41)
[2019-04-06] MEDS: CARVEDILOL 12.5 MG TABLET PO SCH (09:41)
[2019-04-06] MEDS: MULTIVITAMIN 10 ML, THIAMINE INJ 100 MG, FOLIC ACID INJ 1 MG in SODIUM CHLORIDE 0.9% 1,... IV SCH ×2 (09:42→11:11)
[2019-04-06] MEDS ORDERED: IOVERSOL 320 50 ML VIAL PO ONE (11:10)
[2019-04-06] MEDS: INSULIN ASPART 300 UNIT/3 ML PEN SUBQ SCH ×2 (11:10→12:08)
--- NOTE | 2019-04-06 13:38 | CT Report ---
Reason: gi bleed/melena Procedure Date: 04/06/2019 Accession Number: [id number] / [id number] Procedure: CT - Abdomen/Pelvis W CPT Code: FULL RESULT: EXAM: CT ABDOMEN AND PELVIS EXAM DATE: 04/06/2019 11:08 AM. CLINICAL HISTORY: Gi bleed/melena. COMPARISONS: None. TECHNIQUE: Routine helical CT imaging was performed through the abdomen and pelvis. IV contrast: 90 mL Optiray 320. Enteric contrast: Yes. Reconstructions: Coronal and sagittal. In accordance with CT protocol optimization, one or more of the following dose reduction techniques were utilized for this exam: automated exposure control, adjustment of mA and/or KV based on patient size, or use of iterative reconstructive technique. FINDINGS: Lung Bases: Small left pleural effusion. Trace pleural fluid on the right. Minimal subsegmental atelectasis greatest at left lung base. Mild cardiomegaly. Postop change from CABG. Pacing leads. Liver: Hepatic veins unenhanced, related to early phase of scanning. Hepatic parenchyma otherwise unremarkable. Gallbladder/Bile Ducts: Cholecystectomy. Bile ducts nondilated. Spleen: Mild splenomegaly measuring between 13 and 14 cm longitudinally. Pancreas: Unremarkable Adrenal Glands: Unremarkable Kidneys: Unremarkable Peritoneal Cavity/Bowel: Colonic diverticula without CT findings of acute diverticulitis. No bowel obstruction. Appendix normal. No free fluid, free air or adenopathy. Nonspecific gastric wall prominence in nondistended stomach. Small bowel appears unremarkable. No mass seen. Pelvic Organs: Normal. The bladder and visualized pelvic organs are within normal limits. Vasculature: Calcified atherosclerosis. No aneurysms or other significant abnormality. Bones: Spondylotic changes in thoracic and lumbar spine with mild leftward convex curve in lumbar spine. No bone lesion suspicious for malignancy. No acute abnormality. Other: Small fat-containing umbilical hernia. IMPRESSION: 1. Small bowel appears unremarkable. Colonic diverticula are seen. Nonspecific segmental areas of contraction in the colon and contracted appearing stomach without separate mass visible on CT. 2. Calcified atherosclerosis, cardiomegaly, calcified atherosclerosis and pacing leads with postop change from CABG.. Small left pleural effusion with trace pleural fluid on the right. 4. Exam otherwise as above. RADIA
--- NOTE | 2019-04-06 15:52 | Discharge Plan ---
Discharge Plan Disposition: 01 Home, Self Care Condition: Good Diet: Cardiac Activity Restrictions: Activity as Tolerated Shower Restrictions: No Additional Instructions or Follow Up instructions: You were admitted for a GI bleed. You underwent an upper and lower scope in which a small area of your duodenum showed signs of bleeding, and there were a few colon polyps found. Biopsies are pending. You received one unit of packed red blood cells which greatly improved your low blood counts. Please continue on an iron supplement at home. The most likely cause of this bleed was the mixture of your prescribed blood thinner (Eliquis), Excedrin/ibuprofen and continued alcohol use. Please do not take any NSAIDs (Non steroidal anti-inflammatory drugs) since the can accelerate your bleeding likelihood. You may resume your Eliquis if you can avoid both NSAID use and alcohol consumption. If your black stools return, stop the Eliquis and call your PCP. The dizzy spells at home are concerning, so please take the prescribed Midodrine. It is the very lowest dose and this was likely prescribed to help with your dizzy spells. Please follow up with Dr. Javon Valles at his outpatient clinic in about a week to review biopsy results. Please see your PCP within one week. No Smoking: If you smoke, Please STOP! Call for help. Follow-up with: Provider,Other [Primary Care Provider] -
[2019-04-06 15:59] VITALS: BP 141/67
[2019-04-06] MEDS ORDERED: PROPOFOL 200 MG/20 ML VIAL IVP ONE (16:07)
--- NOTE | 2019-04-06 17:00 | DISCHARGE SUMMARY ---
Discharge Summary Admit Date: 04/04/19 Discharge Date: 04/06/19 Discharging Provider: NICANOR Dyson Primary Care Provider: FEDERICO fernando provider Condition at Discharge: Good Discharge Disposition: 01 Home, Self Care - DIAGNOSES Admission Diagnoses: Gastrointestinal hemorrhage, unspecified (K92.2) Acute posthemorrhagic anemia (D62) Syncope and collapse (R55) Alcohol dependence, uncomplicated (F10.20) intermediate (current) use of non-steroidal non-inflam (NSAID) (Z79.1) Personal history of other diseases of the circulatory system (Z86.79) Gastro-esophageal reflux disease without esophagitis (K21.9) Type 2 diabetes mellitus with unspecified complications (E11.8) Presence of automatic (implantable) cardiac defibrillator (Z95.810) 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 myocardial infarction (I25.2) Athscl heart disease of [place] coronary artery w/o ang pctrs (I25.10) Hyperlipidemia, unspecified (E78.5) Heart failure, unspecified (I50.9) Obstructive sleep apnea (adult) (pediatric) (G47.33) Essential (primary) hypertension (I10) Unspecified dementia without behavioral disturbance (F03.90) Discharge Diagnoses with Status of Each Condition: GI bleed (K92.2) resolved Alcohol use disorder, moderate, dependence (F10.20) chronic, ongoing Patient takes NSAID (non-steroid anti-inflammatory drug) (Z79.1) chronic, claims he will stop Diabetes mellitus type 2 with complications (E11.8) chronic, stable CAD (coronary artery disease) (I25.10) chronic, stable Hyperlipidemia (E78.5) chronic, stable CHF (NYHA class II, ACC/AHA stage C) (I50.9) chronic, stable, not in acute exacerbation SHIELA on CPAP (G47.33) chronic, stable Essential hypertension (I10) chronic, stable Dementia (F03.90) chronic, stable Acute blood loss anemia (D62) resolved Syncope (R55) improved Medical non-compliance (Z91.19) chronic, stable Colon polyps (K63.5) new on this admission, biopsies are pending - HPI History of Present Illness: Maxime Tristan is an obese 68-year old male with a past medical history of CHF, hypertension, hyperlipidemia, CAD, chronic angina, atrial flutter, SHIELA- with CPAP, diabetes mellitus type 2- insulin dependent, GERD, osteoarthritis, fatigue, chronic back pain, status post CABG, coronary stents, pacemaker/ICD in place, BPH, nocturia, insomnia, gastric ulcers, depression, and alcoholism. The patient states that he was started on amitriptyline for ongoing insomnia and in mid February was started on Midodrine by his car varnisher. He believes that since starting the Midodrine, he has been having bad side effects and that this medication has caused his black stools. He admits to a recent increase in his ibuprofen use in which he takes 2-3 tablets each night before bed to promote sleep. He admits to alcohol use and states that he and his will usually drink 1 bottle of wine between the 2 of them each night. He also states that for the past week his syncope episodes have been more frequent in which he becomes very weak, looses the ability to speak and has to quickly find a place to sit in order to prevent himself from falling all the way to the floor. These episodes last 15-20 minutes and he has double vision with left eye fogginess. For the past 1 year he has noticed a slight tremor and weakness to his RUE of which he is right-hand dominant. He believes that he has been to at least 5 specialists within the past year and his illness remains "a mystery" to every medical professional. He claims that he will be traveling to the [facility] in [place] in the very near future. He explains that if he has to "just sit around for the next 48 hours, he is going to leave", in regards to his current situation. A general surgery consult was made already in the ED for a possible EGD and colonoscopy to evaluate for a recurrence of gastric ulcers. - CONSULTS | PROCEDURES Consultations: General surgery- Dr. Javon Valles Procedures: Colonoscopy showed 3 small polyps which were removed and mild diverticulosis. No etiology for recent GI bleed identified. See separate full procedure note for details. Rec CT abd/pelvis for further evaluation and to assess for a small bowel lesion. EGD showed solitary small angiodysplasia in second part of duodenum intermittently oozing bright red blood; this was cauterized; it is unclear if this was the cause of all of the patient's bleeding and colonoscopy will be scheduled for tomorrow for further evaluation. See formal EGD report. - HOSPITAL COURSE Hospital Course: The patient was treated for his acute blood loss anemia by receiving one unit of packed red blood cells. His symptoms improved of dizziness weakness lethargy and shortness of breath.He underwent both an EGD and a colonoscopy with Dr. Javon Valles to evaluate the source of bleeding. It was determined that the most likely source of bleeding was the combination of his Eliquis, NSAID use, and alcohol use. He had an elevated GGT of 347 showing current Alcoholism. Upon discharge she was restarted on Eliquis as he assured us that he would no longer use alcohol or NSAIDs. Teaching materials were given on Eliquis as mixing NSAIDs with Eliquis is contraindicated. He was told to follow up with Dr. Javon Valles in one week and with his primary care provider in one week. He was medically stable and transported home via private vehicle with his and required no oxygen. - ALLERGIES Allergies/Adverse Reactions: Allergies Allergy/AdvReac Type Severity Reaction Status Date / Time No Known Drug Allergies Allergy Verified 04/04/19 12:28 - MEDICATIONS Home Medications: Ambulatory Orders Medication Instructions Recorded Confirmed Apixaban [Eliquis] 5 mg PO BID 03/03/15 04/04/19 Aspirin [Aspir 81] 81 mg PO DAILY 03/03/15 04/04/19 Carvedilol [Coreg] 6.25 mg PO BID 03/03/15 04/04/19 Esomeprazole Magnesium [Nexium] 40 mg PO QDAC 03/03/15 04/04/19 Furosemide 40 mg PO DAILY 03/03/15 04/04/19 Lisinopril 5 mg PO DAILY 03/03/15 04/04/19 Metformin HCl [Metformin HCl ER] 500 mg PO BIDWM 03/03/15 04/04/19 Ranolazine [Ranexa] 1,000 mg PO BID 03/03/15 04/04/19 Rosuvastatin Calcium [Crestor] 40 mg PO DAILY 03/03/15 04/04/19 Sertraline HCl 100 mg PO DAILY 03/03/15 04/04/19 Spironolactone 25 mg PO DAILY 03/03/15 04/04/19 Insulin Lispro Protamin/Lispro 70 units SUBQ QDBREAKFAST 01/19/16 04/04/19 [Humalog Mix 75-25 Vial] Amiodarone HCl 200 mg PO DAILY 04/04/19 04/04/19 Insulin Lispro Protamin/Lispro 50 units SUBQ QDDINNER 04/04/19 04/04/19 [Humalog Mix 75-25 Vial] Midodrine 2.5 mg PO BID 04/04/19 04/04/19 Ubidecarenone [Coenzyme Q10] 20 meq PO DAILY 04/04/19 04/04/19 - PHYSICAL EXAM AT DISCHARGE General Appearance: positive: No acute distress, Alert Eyes Bilateral: positive: PERRL ENT: positive: Pharynx nml, No signs of dehydration Neck: positive: Thyroid nml, No JVD, Trachea midline Respiratory: positive: Chest non-tender, No respiratory distress, Other (crackles in low bases bilaterally) Cardiovascular: positive: Regular rate & rhythm, No gallop, Systolic murmur, Decreased pulse(s) Peripheral Pulses: positive: 1+ Abdomen: positive: Non-tender, Nml bowel sounds, Guarding, Other (rounded, obese, soft) Back: positive: Nml inspection Skin: positive: Color nml, No rash, Warm, Dry Extremities: positive: Non-tender, Full ROM, Pedal edema Neurologic/Psychiatric: positive: Oriented x3, CN's nml (2-12), Motor nml, Sensation nml, Mood/affect nml, Weakness, Other (baseline early dementia) Reflexes: Bicep (R): 3+, Bicep (L): 3+ - LABS Result Diagrams: 04/06/19 05:56 04/06/19 05:56 - FOLLOW UP Follow Up: Disposition: Home, Self Care Condition: Good Additional Instructions or Follow Up instructions: You were admitted for a GI bleed. You underwent an upper and lower scope in which a small area of your duodenum showed signs of bleeding, and there were a few colon polyps found. Biopsies are pending. You received one unit of packed red blood cells which greatly improved your low blood counts. Please continue on an iron supplement at home. The most likely cause of this bleed was the mixture of your prescribed blood thinner (Eliquis), Excedrin/ibuprofen and continued alcohol use. Please do not take any NSAIDs (Non steroidal anti-inflammatory drugs) since the can accelerate your bleeding likelihood. You may resume your Eliquis if you can avoid both NSAID use and alcohol consumption. If your black stools return, stop the Eliquis and call your PCP. The dizzy spells at home are concerning, so please take the prescribed Midodrine. It is the very lowest dose and this was likely prescribed to help with your dizzy spells. Please follow up with Dr. Javon Valles at his outpatient clinic in about a week to review biopsy results. Please see your PCP within one week. - TIME SPENT Time Spent in Discharge (Minutes): 50
== END 2019-04-06 16:08 | disposition home or self-care (01) | DRG 917 ==
LOC: ED 12:05 → MS2 13:34
PROVIDERS: ADMIT Nurse Practitioner; ATTEND Nurse Practitioner
PROC: 0W3P8ZZ Control Bleeding in Gastrointestinal Tract, Via Natural or Artificial Opening Endoscopic (ICD-10-PCS; 2019-04-05)
PROC: 0DB78ZX Excision of Stomach, Pylorus, Via Natural or Artificial Opening Endoscopic, Diagnostic (ICD-10-PCS; 2019-04-05)
PROC: 30233N1 Transfusion of Nonautologous Red Blood Cells into Peripheral Vein, Percutaneous Approach (ICD-10-PCS; 2019-04-05)
PROC: 0DBM8ZZ Excision of Descending Colon, Via Natural or Artificial Opening Endoscopic (ICD-10-PCS; 2019-04-06)
PROC: 0DBL8ZZ Excision of Transverse Colon, Via Natural or Artificial Opening Endoscopic (ICD-10-PCS; 2019-04-06)
PROC: 0DBN8ZZ Excision of Sigmoid Colon, Via Natural or Artificial Opening Endoscopic (ICD-10-PCS; principal; 2019-04-06 08:00)
DX: K92.2 Gastrointestinal hemorrhage, unspecified (principal); I48.91 Unspecified atrial fibrillation; T45.511A Poisoning by anticoagulants, accidental (unintentional), initial encounter; K31.811 Angiodysplasia of stomach and duodenum with bleeding; K92.1 Melena; E78.00 Pure hypercholesterolemia, unspecified; I48.92 Unspecified atrial flutter; G47.30 Sleep apnea, unspecified; E11.9 Type 2 diabetes mellitus without complications; D62 Acute posthemorrhagic anemia; D68.32 Hemorrhagic disorder due to extrinsic circulating anticoagulants; T39.311A Poisoning by propionic acid derivatives, accidental (unintentional), initial encounter; Y92.009 Unspecified place in unspecified non-institutional (private) residence as the place of occurrence of the external cause; K29.70 Gastritis, unspecified, without bleeding; F10.20 Alcohol dependence, uncomplicated; D12.4 Benign neoplasm of descending colon; D12.5 Benign neoplasm of sigmoid colon; K57.30 Diverticulosis of large intestine without perforation or abscess without bleeding; K21.9 Gastro-esophageal reflux disease without esophagitis; E11.65 Type 2 diabetes mellitus with hyperglycemia; E11.42 Type 2 diabetes mellitus with diabetic polyneuropathy; I11.0 Hypertensive heart disease with heart failure; I50.9 Heart failure, unspecified; I25.118 Atherosclerotic heart disease of native coronary artery with other forms of angina pectoris; E78.5 Hyperlipidemia, unspecified; F03.90 Unspecified dementia, unspecified severity, without behavioral disturbance, psychotic disturbance, mood disturbance, and anxiety; R55 Syncope and collapse; M19.90 Unspecified osteoarthritis, unspecified site; G89.29 Other chronic pain; M54.9 Dorsalgia, unspecified; G47.33 Obstructive sleep apnea (adult) (pediatric); J44.9 Chronic obstructive pulmonary disease, unspecified; G47.00 Insomnia, unspecified; F32.9 Major depressive disorder, single episode, unspecified; F41.9 Anxiety disorder, unspecified; R74.8 Abnormal levels of other serum enzymes; R16.0 Hepatomegaly, not elsewhere classified; K64.4 Residual hemorrhoidal skin tags; K64.8 Other hemorrhoids; Z91.19 Patient's noncompliance with other medical treatment and regimen; R25.1 Tremor, unspecified; R26.9 Unspecified abnormalities of gait and mobility; R53.83 Other fatigue; N40.1 Benign prostatic hyperplasia with lower urinary tract symptoms; R35.1 Nocturia; R53.1 Weakness; R35.0 Frequency of micturition; R30.0 Dysuria; J32.9 Chronic sinusitis, unspecified; H54.7 Unspecified visual loss; H35.30 Unspecified macular degeneration; H91.90 Unspecified hearing loss, unspecified ear; Z66 Do not resuscitate; Z91.81 History of falling; F10.11 Alcohol abuse, in remission; Z79.1 Long term (current) use of non-steroidal anti-inflammatories (NSAID); Z79.82 Long term (current) use of aspirin; Z79.01 Long term (current) use of anticoagulants; Z79.4 Long term (current) use of insulin; I25.2 Old myocardial infarction; Z95.1 Presence of aortocoronary bypass graft; Z95.5 Presence of coronary angioplasty implant and graft; Z95.810 Presence of automatic (implantable) cardiac defibrillator; Z86.79 Personal history of other diseases of the circulatory system; Z87.11 Personal history of peptic ulcer disease; Z86.73 Personal history of transient ischemic attack (TIA), and cerebral infarction without residual deficits; Z87.891 Personal history of nicotine dependence
CPT/HCPCS: 36415; 74177; 80053; 80162; 82977; 83036; 83690; 83735; 84484; 85025; 86850; 86900; 86901; 86920; 93005; 96374; 99283; 99285; A9270; J1815; J3411; J7120; P9016; Q9967

== ENCOUNTER 2019-12-19 15:14 | Outpatient (CLI) | payer MEDICARE, OTHER ==
[2019-12-19 16:06] LABS: BASOPHILS # (AUTO) 0.1 10^3/uL (0.0-0.1); BASOPHILS % (AUTO) 0.8 %; EOSINOPHILS # (AUTO) 0.1 10^3/uL (0.0-0.7); EOSINOPHILS % (AUTO) 2.1 %; HGB - HEMOGLOBIN 11.8 g/dL (14.0-18.0); LYMPHOCYTES # (AUTO) 0.7 10^3/uL (1.5-3.5); LYMPHOCYTES % (AUTO) 11.7 %; MEAN CORPUSCULAR HEMOGLOBIN 29.6 pg (27.0-31.0); MEAN CORPUSCULAR HGB CONC 32.2 g/dL (32.0-36.0); MEAN CORPUSCULAR VOLUME 91.7 fL (80.0-94.0); MONOCYTES # (AUTO) 0.4 10^3/uL (0.0-1.0); MONOCYTES % (AUTO) 6.2 %; NEUTROPHILS % (AUTO) 78.9 %; PLT - PLATELET COUNT 151 10^3/uL (130-450); RED BLOOD COUNT 3.99 10^6/uL (4.70-6.10); RED CELL DISTRIBUTION WIDTH 16.4 % (12.0-15.0); WHITE BLOOD COUNT 6.3 x10^3/uL (4.8-10.8)
[2019-12-19 16:11] LABS: INR 1.6 (0.8-1.2); PT - PROTHROMBIN TIME 17.7 secs (9.9-12.6)
[2019-12-19 16:19] LABS: ALBUMIN 2.9 g/dL (3.2-5.5); ALBUMIN/GLOBULIN RATIO 0.7 (1.0-2.2); BILIRUBIN,TOTAL 1.6 mg/dL (0.2-1.0); CALCIUM 8.8 mg/dL (8.5-10.3); CREATININE 1.1 mg/dL (0.6-1.2); TOTAL PROTEIN 6.8 g/dL (6.7-8.2)
== END 2019-12-19 15:15 | disposition home or self-care (01) ==
LOC: LAB 15:14
PROVIDERS: ATTEND Internal Medicine Transplant Hepatology
DX: K74.60 Unspecified cirrhosis of liver (principal); H53.2 Diplopia
CPT/HCPCS: 36415; 80053; 82105; 85025; 85610; 85651; 86140

== ENCOUNTER 2020-01-23 13:55 | Outpatient (CLI) | payer MEDICARE, OTHER ==
[2020-01-23 14:15] LABS: HGB - HEMOGLOBIN 12.1 g/dL (14.0-18.0); MEAN CORPUSCULAR HEMOGLOBIN 28.9 pg (27.0-31.0); MEAN CORPUSCULAR HGB CONC 32.8 g/dL (32.0-36.0); MEAN CORPUSCULAR VOLUME 88.1 fL (80.0-94.0); MEAN PLATELET VOLUME 11.3 fL (7.4-11.4); RED BLOOD COUNT 4.19 10^6/uL (4.70-6.10); RED CELL DISTRIBUTION WIDTH 16.8 % (12.0-15.0); WHITE BLOOD COUNT 7.6 x10^3/uL (4.8-10.8)
[2020-01-23 14:25] LABS: INR 1.5 (0.8-1.2); PT - PROTHROMBIN TIME 17.2 secs (9.9-12.6)
[2020-01-23 14:28] LABS: ALBUMIN 3.2 g/dL (3.2-5.5); ALBUMIN/GLOBULIN RATIO 0.8 (1.0-2.2); BILIRUBIN,TOTAL 2.1 mg/dL (0.2-1.0); CALCIUM 8.8 mg/dL (8.5-10.3); CREATININE 0.9 mg/dL (0.6-1.2); TOTAL PROTEIN 7.3 g/dL (6.7-8.2)
== END 2020-01-23 13:56 | disposition home or self-care (01) ==
LOC: LAB 13:55
PROVIDERS: ATTEND Internal Medicine Transplant Hepatology
DX: K74.69 Other cirrhosis of liver (principal)
CPT/HCPCS: 36415; 80053; 85027; 85610

== ENCOUNTER 2020-04-06 16:37 | Emergency (ER) | payer MEDICARE, OTHER ==
[2020-04-06 17:37] LABS: BASOPHILS # (AUTO) 0.1 10^3/uL (0.0-0.1); BASOPHILS % (AUTO) 0.7 %; EOSINOPHILS # (AUTO) 0.2 10^3/uL (0.0-0.7); EOSINOPHILS % (AUTO) 2.1 %; HGB - HEMOGLOBIN 11.3 g/dL (14.0-18.0); LYMPHOCYTES # (AUTO) 0.7 10^3/uL (1.5-3.5); MEAN CORPUSCULAR HEMOGLOBIN 28.5 pg (27.0-31.0); MEAN CORPUSCULAR HGB CONC 31.9 g/dL (32.0-36.0); MEAN CORPUSCULAR VOLUME 89.2 fL (80.0-94.0); MEAN PLATELET VOLUME 10.8 fL (7.4-11.4); MONOCYTES # (AUTO) 0.5 10^3/uL (0.0-1.0); MONOCYTES % (AUTO) 6.6 %; NEUTROPHILS # (AUTO) 5.7 10^3/uL (1.5-6.6); NEUTROPHILS % (AUTO) 80.3 %; PLT - PLATELET COUNT 149 10^3/uL (130-450); RED BLOOD COUNT 3.97 10^6/uL (4.70-6.10); RED CELL DISTRIBUTION WIDTH 18.4 % (12.0-15.0); WHITE BLOOD COUNT 7.1 x10^3/uL (4.8-10.8)
[2020-04-06 17:44] LABS: PT - PROTHROMBIN TIME 21.5 secs (9.9-12.6)
[2020-04-06 17:47] LABS: ALBUMIN 3.3 g/dL (3.2-5.5); ALBUMIN/GLOBULIN RATIO 0.8 (1.0-2.2); BILIRUBIN,TOTAL 1.5 mg/dL (0.2-1.0); CALCIUM 8.7 mg/dL (8.5-10.3); CREATININE 0.9 mg/dL (0.6-1.2); TOTAL PROTEIN 7.3 g/dL (6.7-8.2)
--- NOTE | 2020-04-06 18:56 | ED Physician Documentation ---
PD HPI DYSPNEA - Stated complaint Stated Complaint: ABD PAIN / BLOATING - Chief complaint Chief Complaint: Abd Pain - History obtained from History obtained from: Patient, Family - History of Present Illness Timing - onset: How many months ago (3) Timing - onset during: Rest Timing - duration: Months (3) Timing - details: Gradual onset, Still present Inciting event(s): Other (liver disease with ascites) Improved by: Rest Worsened by: Exertion Associated symptoms: No: Fever, Cough, Hemoptysis, Wheezing, Chest pain / discomfort, Palpitations, Diaphoresis, Bilateral edema, Unilateral edema, Anxiety Similar symptoms before: Has not had sx before Recently seen: Other - Additional information Additional information: 69-year-old male who developed liver disease in November of this year has had increasing size of his ascites and he has begun developed some difficulty breathing. He is having enough difficulty breathing that his gastroenterology clinic asked him to come to the emergency department for evaluation. The patient denies any fever or cough and states that it he has a protuberant abdomen that interferes with his breathing and he is having shifting pains within his abdomen. He is on Spironolactone and Lasix. He has an appointment to see his operating room coordinator Dr. Vazquez next week after a CT scan at the end of this week. Review of Systems Constitutional: denies: Fever, Chills Eyes: denies: Decreased vision Ears: denies: Ear pain Nose: denies: Rhinorrhea / runny nose, Congestion Throat: denies: Sore throat Cardiac: denies: Chest pain / pressure, Palpitations Respiratory: denies: Dyspnea, Cough GI: reports: Abdominal Pain, Abdominal Swelling. denies: Nausea, Vomiting, Constipation, Diarrhea : denies: Dysuria, Frequency Skin: denies: Rash Musculoskeletal: denies: Neck pain, Back pain, Extremity pain Neurologic: denies: Generalized weakness, Focal weakness, Numbness PD PAST MEDICAL HISTORY - Past Medical History Cardiovascular: Congestive heart failure, Hypertension, High cholesterol, Coronary artery disease, Angina, [place], Atrial flutter Respiratory: COPD, Shortness of breath, Sleep apnea, CPAP use Neuro: TIA, Peripheral neuropathy, Tremors (right hand tremor, weakness) Endocrine/Autoimmune: Type 2 diabetes GI: GERD, GI bleed, Ulcers : Benign prostate hypertrophy, Renal insuffiency, Nocturia, Frequency HEENT: Chronic vision loss, Chronic sinusitis, Macular degeneration, Chronic hearing loss Psych: Depression, Anxiety Musculoskeletal: Osteoarthritis, Fatigue, Chronic back pain Derm: None - Past Surgical History Past Surgical History: Yes General: Cholecystectomy, EGD Ortho: Arthroscopic surgery, Spine surgery Cardiovascular: CABG, Coronary stent, Pacemaker, AICD - Present Medications Home Medications: Ambulatory Orders Medication Instructions Recorded Confirmed Apixaban [Eliquis] 5 mg PO BID 03/03/15 04/04/19 Aspirin [Aspir 81] 81 mg PO DAILY 03/03/15 04/04/19 Esomeprazole Magnesium [Nexium] 40 mg PO QDAC 03/03/15 04/04/19 Furosemide 40 mg PO DAILY 03/03/15 04/04/19 Metformin HCl [Metformin HCl ER] 500 mg PO BIDWM 03/03/15 04/04/19 Ranolazine [Ranexa] 1,000 mg PO BID 03/03/15 04/04/19 Rosuvastatin Calcium [Crestor] 40 mg PO DAILY 03/03/15 04/04/19 Sertraline HCl 100 mg PO DAILY 03/03/15 04/04/19 Spironolactone 25 mg PO DAILY 03/03/15 04/04/19 carvediloL [Coreg] 6.25 mg PO BID 03/03/15 04/04/19 lisinopriL [Lisinopril] 5 mg PO DAILY 03/03/15 04/04/19 Insulin Lispro Protamin/Lispro 70 units SUBQ QDBREAKFAST 01/19/16 04/04/19 [Humalog Mix 75-25 Vial] Amiodarone HCl 200 mg PO DAILY 04/04/19 04/04/19 Insulin Lispro Protamin/Lispro 50 units SUBQ QDDINNER 04/04/19 04/04/19 [Humalog Mix 75-25 Vial] Midodrine 2.5 mg PO BID 04/04/19 04/04/19 Ubidecarenone [Coenzyme Q10] 20 meq PO DAILY 04/04/19 04/04/19 traMADol [Ultram] 50 - 100 mg PO Q6H PRN #20 tablet 04/06/20 - Allergies Allergies/Adverse Reactions: Allergies Allergy/AdvReac Type Severity Reaction Status Date / Time No Known Drug Allergies Allergy Verified 04/04/19 12:28 - Social History Does the pt smoke?: No Smoking Status: Former smoker Does the pt drink ETOH?: Yes Does the pt have substance abuse?: No - POLST Patient has POLST: No POLST Status: DNR PD ED PE NORMAL - Vitals Vital signs reviewed: Yes (Normal) - General General: Alert and oriented X 3, Well developed/nourished, Other (The patient appears tachypneic at rest while laying flat. He has an obvious protuberant abdomen.) - HEENT HEENT: Atraumatic, PERRL, EOMI - Neck Neck: Supple, no meningeal sign, No bony TTP - Cardiac Cardiac: RRR, No murmur - Respiratory Respiratory: No respiratory distress, Clear bilaterally - Abdomen Abdomen: Soft, Other (The abdomen is distended there is a fluid wave and there is general mild tenderness without specifically reproduce of tenderness) - Back Back: No CVA TTP, No spinal TTP - Derm Derm: Normal color, Warm and dry, No rash - Extremities Extremities: No deformity, No edema - Neuro Neuro: Alert and oriented X 3, fish packer 2-12 intact, No motor deficit, No sensory deficit, Normal speech Eye Opening: Spontaneous Motor: Obeys Commands Verbal: Oriented GCS Score: 15 - Psych Psych: Normal mood, Normal affect Results - Vitals Vitals: Vital Signs - 24 hr 04/06/20 04/06/20 04/06/20 16:48 19:09 19:19 Temperature 98.5 C H Heart Rate 65 69 63 Respiratory 16 16 18 Rate Blood Pressure 102/63 132/75 H 121/66 O2 Saturation 97 98 99 Oxygen O2 Source Room air - Labs Labs: Laboratory Tests 04/06/20 04/06/20 04/06/20 17:07 17:07 17:07 WBC 7.1 RBC 3.97 L Hgb 11.3 L Hct 35.4 L MCV 89.2 MCH 28.5 MCHC 31.9 L RDW 18.4 H Plt Count 149 MPV 10.8 Neut # (Auto) 5.7 Lymph # (Auto) 0.7 L [place] # (Auto) 0.5 Eos # (Auto) 0.2 Baso # (Auto) 0.1 Absolute Nucleated RBC 0.00 Nucleated RBC % 0.0 PT 21.5 H INR 2.0 H Sodium 135 Potassium 4.0 Chloride 100 L Carbon Dioxide 23 Anion Gap 12.0 BUN 16 Creatinine 0.9 Estimated GFR (MDRD) 83 L Glucose 316 H Calcium 8.7 Total Bilirubin 1.5 H AST 48 H ALT 30 Alkaline Phosphatase 360 H Ammonia Total Protein 7.3 Albumin 3.3 Globulin 4.0 Albumin/Globulin Ratio 0.8 L Lipase 35 04/06/20 17:43 WBC RBC Hgb Hct MCV MCH MCHC RDW Plt Count MPV Neut # (Auto) Lymph # (Auto) [place] # (Auto) Eos # (Auto) Baso # (Auto) Absolute Nucleated RBC Nucleated RBC % PT INR Sodium Potassium Chloride Carbon Dioxide Anion Gap BUN Creatinine Estimated GFR (MDRD) Glucose Calcium Total Bilirubin AST ALT Alkaline Phosphatase Ammonia 42.9 H Total Protein Albumin Globulin Albumin/Globulin Ratio Lipase Procedures - Paracentesis Preparation: Ultrasound guidance, Sterile prep and drape, Local anesthesia Location: LLQ Technique: Z-tract, Catheter over needle Fluid: Cloudy, Sent for cell count, Sent for gram stain, Sent for culture, Sent for albumin, Sent for glucose, Sent for protein, Sent for LDH, Sent for amylase, Volume - enter cc (2700), Sent for cytology Aftercare: Patient tolerated well, Dressing applied, Fluid leak - comment (sutured with 4-0 nylon) PD MEDICAL DECISION MAKING - ED course Complexity details: reviewed results, re-evaluated patient, considered differential, d/w patient, d/w family ED course: 69-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 He is having difficulty breathing interfering with his ability to do his usual daily living. With the patient's consent paracentesis was performed drying 2700 cc of straw-colored fluid. The patient had immediate relief of symptoms. Patient was thankful for relief. He does have follow-up arranged and he does have an undiagnosed problem at this time. His INR is elevated at 2 and he is administered vitamin K 10 mg intravenously. Fluid is sent for cytology and the usual studies. Departure - Departure Disposition: 01 Home, Self Care Clinical Impression: Ascites of liver Condition: Stable Instructions: Paracentesis, ED Ascites Follow-Up: JANIE PEDERSON [Primary Care Provider] - AYUSH FRANCIS MD [Physician No Access] - Prescriptions: traMADol [Ultram] 50 - 100 mg PO Q6H PRN #20 tablet PRN Reason: Pain Comments: Today we jelena off 2700 mL of ascites. This should help with your breathing but likely will accumulate again. Stay on your diuretics and follow-up with your operating room coordinator as planned. Discharge Date/Time: 04/06/20 19:20
[2020-04-06] MEDS: PHYTONADIONE 10 MG/ML AMP IVP STA (19:18)
[2020-04-06 19:20] VITALS: BP 121/66
[2020-04-06 19:27] LABS: BF CLARITY CLOUDY; BF COLOR YELLOW; BF SOURCE PERITONEAL; CC,BF RBC 2000 /mm^3
[2020-04-06 20:19] LABS: LYMPHOCYTES %,BODY FLUID 30 %; MACROPHAGES %,BODY FLUID 29 %; MONOCYTES %,BODY FLUID 39 %
== END 2020-04-06 19:20 | disposition home or self-care (01) ==
LOC: ED 16:37
DX: R18.8 Other ascites (principal); K76.9 Liver disease, unspecified; R79.1 Abnormal coagulation profile; I11.0 Hypertensive heart disease with heart failure; I50.9 Heart failure, unspecified; J44.9 Chronic obstructive pulmonary disease, unspecified; E11.42 Type 2 diabetes mellitus with diabetic polyneuropathy; Z79.4 Long term (current) use of insulin; Z87.891 Personal history of nicotine dependence; Z86.73 Personal history of transient ischemic attack (TIA), and cerebral infarction without residual deficits; Z79.01 Long term (current) use of anticoagulants; Z79.82 Long term (current) use of aspirin; Z66 Do not resuscitate
CPT/HCPCS: 36415; 49083; 80053; 82140; 83690; 85025; 85610; 87070; 87205; 89051

== ENCOUNTER 2020-06-18 14:19 | Emergency (ER) | payer MEDICARE, OTHER ==
[2020-06-18] MEDS ORDERED: SODIUM CHLORIDE 0.9% 1,000 ML IV STA (15:04)
--- NOTE | 2020-06-18 15:07 | ED Physician Documentation ---
History of Present Illness - Stated complaint Stated Complaint: DIFF SPEAKING, [place], LIGHTHEADED - Chief complaint Chief Complaint: Neuro - History obtained from History obtained from: Patient, Family - History of Present Illness Timing: How many weeks ago (3) - Additonal information Additional information: 69-year-old male with a history of cirrhosis and ascites hypertension and diabetes has had a severe spasm in his neck about 3 weeks ago and following that he has had a headache and off and on he has had some difficulty with speech and difficulty walking. He states that if it were not for his and his primary care doctor he would not of been here today. He indicates that following the removal of his ascites 2 months ago he has done well, he is on Spironolactone and Lasix, and he is continue these medications. Review of Systems Constitutional: denies: Fever Eyes: denies: Decreased vision Ears: denies: Ear pain Nose: denies: Rhinorrhea / runny nose, Congestion Throat: denies: Sore throat Cardiac: denies: Chest pain / pressure, Palpitations Respiratory: reports: Cough (morning cough is unchanged). denies: Dyspnea GI: reports: Diarrhea (loose stool every few days). denies: Abdominal Pain, Nausea, Vomiting, Constipation : denies: Dysuria, Frequency Skin: denies: Rash Musculoskeletal: denies: Neck pain, Back pain, Extremity pain Neurologic: reports: Other (Incoordinated gait). denies: Generalized weakness, Focal weakness, Numbness Endocrine: reports: Polydypsia, Polyuria PD PAST MEDICAL HISTORY - Past Medical History Cardiovascular: Congestive heart failure, Hypertension, High cholesterol, Coronary artery disease, Angina, [place], Atrial flutter Respiratory: COPD, Shortness of breath, Sleep apnea, CPAP use Neuro: TIA, Peripheral neuropathy, Tremors (right hand tremor, weakness) Endocrine/Autoimmune: Type 2 diabetes GI: GERD, GI bleed, Ulcers : Benign prostate hypertrophy, Renal insuffiency, Nocturia, Frequency HEENT: Chronic vision loss, Chronic sinusitis, Macular degeneration, Chronic hearing loss Psych: Depression, Anxiety Musculoskeletal: Osteoarthritis, Fatigue, Chronic back pain Derm: None - Past Surgical History Past Surgical History: Yes General: Cholecystectomy, EGD Ortho: Arthroscopic surgery, Spine surgery Cardiovascular: CABG, Coronary stent, Pacemaker, AICD - Present Medications Home Medications: Ambulatory Orders Medication Instructions Recorded Confirmed Apixaban [Eliquis] 5 mg PO BID 03/03/15 04/04/19 Aspirin [Aspir 81] 81 mg PO DAILY 03/03/15 04/04/19 Esomeprazole Magnesium [Nexium] 40 mg PO QDAC 03/03/15 04/04/19 Furosemide 40 mg PO DAILY 03/03/15 04/04/19 Metformin HCl [Metformin HCl ER] 500 mg PO BIDWM 03/03/15 04/04/19 Ranolazine [Ranexa] 1,000 mg PO BID 03/03/15 04/04/19 Rosuvastatin Calcium [Crestor] 40 mg PO DAILY 03/03/15 04/04/19 Sertraline HCl 100 mg PO DAILY 03/03/15 04/04/19 Spironolactone 25 mg PO DAILY 03/03/15 04/04/19 carvediloL [Coreg] 6.25 mg PO BID 03/03/15 04/04/19 lisinopriL [Lisinopril] 5 mg PO DAILY 03/03/15 04/04/19 Insulin Lispro Protamin/Lispro 70 units SUBQ QDBREAKFAST 01/19/16 04/04/19 [Humalog Mix 75-25 Vial] Amiodarone HCl 200 mg PO DAILY 04/04/19 04/04/19 Insulin Lispro Protamin/Lispro 50 units SUBQ QDDINNER 04/04/19 04/04/19 [Humalog Mix 75-25 Vial] Midodrine 2.5 mg PO BID 04/04/19 04/04/19 Ubidecarenone [Coenzyme Q10] 20 meq PO DAILY 04/04/19 04/04/19 traMADol [Ultram] 50 - 100 mg PO Q6H PRN #20 tablet 04/06/20 - Allergies Allergies/Adverse Reactions: Allergies Allergy/AdvReac Type Severity Reaction Status Date / Time No Known Drug Allergies Allergy Verified 04/04/19 12:28 - Social History Does the pt smoke?: No Smoking Status: Former smoker Does the pt drink ETOH?: Yes Does the pt have substance abuse?: No - POLST Patient has POLST: No POLST Status: DNR PD ED PE NORMAL - Vitals Vital signs reviewed: Yes (normal ) - General General: Alert and oriented X 3, No acute distress, Well developed/nourished - HEENT HEENT: Atraumatic, PERRL, EOMI - Neck Neck: Supple, no meningeal sign, No bony TTP - Cardiac Cardiac: RRR, No murmur - Respiratory Respiratory: No respiratory distress, Other (rhonchi in the left base) - Abdomen Abdomen: Soft, Non tender - Back Back: No CVA TTP, No spinal TTP - Derm Derm: Normal color, Warm and dry, No rash - Extremities Extremities: No deformity, No tenderness to palpate, No edema, No calf tenderness / cord - Neuro Neuro: Alert and oriented X 3, artificial stone setter 2-12 intact Eye Opening: Spontaneous Motor: Obeys Commands Verbal: Oriented GCS Score: 15 - Psych Psych: Normal mood, Normal affect Results - Vitals Vitals: Vital Signs - 24 hr 06/18/20 06/18/20 14:32 15:41 Temperature 37.1 C 36.6 C Heart Rate 70 70 Respiratory 18 20 Rate Blood Pressure 105/71 112/65 O2 Saturation 96 95 Oxygen O2 Source Room air - Labs Labs: Laboratory Tests 06/18/20 06/18/20 06/18/20 15:00 15:00 15:00 WBC 6.8 RBC 3.67 L Hgb 11.1 L Hct 32.0 L MCV 87.2 MCH 30.2 MCHC 34.7 RDW 16.7 H Plt Count 124 L MPV 11.0 Neut # (Auto) 5.5 Lymph # (Auto) 0.8 L [place] # (Auto) 0.3 Eos # (Auto) 0.1 Baso # (Auto) 0.1 Absolute Nucleated RBC 0.00 Nucleated RBC % 0.0 PT 14.8 H INR 1.3 H Sodium 130 L Potassium 4.8 Chloride 96 L Carbon Dioxide 26 Anion Gap 8.0 BUN 30 H Creatinine 1.3 H Estimated GFR (MDRD) 55 L Glucose 263 H Calcium 8.9 Total Bilirubin 2.0 H AST 61 H ALT 62 H Alkaline Phosphatase 409 H Ammonia Total Protein 7.4 Albumin 3.3 Globulin 4.1 Albumin/Globulin Ratio 0.8 L Lipase 47 Urine Color Urine Clarity Urine pH Ur Specific [place] Urine Protein Urine Glucose (UA) Urine Ketones Urine Occult Blood Urine Nitrite Urine Bilirubin Urine Urobilinogen Ur Leukocyte Esterase Ur Microscopic Review Urine Culture Comments 06/18/20 06/18/20 15:25 15:40 WBC RBC Hgb Hct MCV MCH MCHC RDW Plt Count MPV Neut # (Auto) Lymph # (Auto) [place] # (Auto) Eos # (Auto) Baso # (Auto) Absolute Nucleated RBC Nucleated RBC % PT INR Sodium Potassium Chloride Carbon Dioxide Anion Gap BUN Creatinine Estimated GFR (MDRD) Glucose Calcium Total Bilirubin AST ALT Alkaline Phosphatase Ammonia 47.0 H Total Protein Albumin Globulin Albumin/Globulin Ratio Lipase Urine Color DARK YELLOW Urine Clarity CLEAR Urine pH 7.0 Ur Specific [place] 1.010 Urine Protein NEGATIVE Urine Glucose (UA) 250 H Urine Ketones NEGATIVE Urine Occult Blood NEGATIVE Urine Nitrite NEGATIVE Urine Bilirubin NEGATIVE Urine Urobilinogen 1 (NORMAL) Ur Leukocyte Esterase NEGATIVE Ur Microscopic Review NOT INDICATED Urine Culture Comments NOT INDICATED - Rads (name of study) chest Radiology: Prelim report reviewed (Impression: No acute cardiopulmonary abnormality.), EMP read indepedently, See rad report Procedures - IVC sono (time) 1455 Bedside IVC sono: IVC measures (cm) (1.33), IVC collapsed c insp (cm) (complete), Dehydration (est 1 liter deficit) PD MEDICAL DECISION MAKING - ED course Complexity details: reviewed old records, reviewed results, re-evaluated patient, considered differential, d/w patient, d/w family ED course: 69-year-old male with cirrhosis is on 2 diuretics and he is found to be dehydrated on interrogation the inferior vena cava. He is administered intravenous saline. He has been having symptoms intermittently of difficulty walking and talking and I suspect these are related to his complete occlusion of the left internal carotid artery and dehydration. Today we have given him saline. He feels well. The CT of the head was impressive with a large arachnoid cyst that the patient was aware of present on the left side. I do not suspect this has anything to do with the symptoms the patient has been having. He has an elevated ammonia level at 47 but here and now today and with this level he is not affected. I did discuss with him the use of lactulose and this may be necessary at some point but I do not believe this is necessary today. I did discuss with the patient daily weights and he is doing this usually now at about 185 and he did have a drop to 178. I have asked him to consider 185 as his dry weight and if he goes under this to stop his diuretics for 1-2 days. Departure - Departure Disposition: 01 Home, Self Care Clinical Impression: Dehydration Condition: Stable Instructions: ED Dehydration Follow-Up: JANIE PEDERSON [Primary Care Provider] - Comments: Today we found that you were dehydrated and I believe this is secondary to your use of diuretics and your diabetes. Continue to weigh yourself daily and if you find that you are dropping below the 185lb. zuleima stop your diuretic for 1 to 2 days. Both the furosemide and Spironolactone.
[2020-06-18 15:15] LABS: BASOPHILS # (AUTO) 0.1 10^3/uL (0.0-0.1); BASOPHILS % (AUTO) 0.7 %; EOSINOPHILS # (AUTO) 0.1 10^3/uL (0.0-0.7); EOSINOPHILS % (AUTO) 1.5 %; HGB - HEMOGLOBIN 11.1 g/dL (14.0-18.0); LYMPHOCYTES # (AUTO) 0.8 10^3/uL (1.5-3.5); LYMPHOCYTES % (AUTO) 11.2 %; MEAN CORPUSCULAR HEMOGLOBIN 30.2 pg (27.0-31.0); MEAN CORPUSCULAR HGB CONC 34.7 g/dL (32.0-36.0); MEAN CORPUSCULAR VOLUME 87.2 fL (80.0-94.0); MONOCYTES # (AUTO) 0.3 10^3/uL (0.0-1.0); MONOCYTES % (AUTO) 4.7 %; NEUTROPHILS # (AUTO) 5.5 10^3/uL (1.5-6.6); NEUTROPHILS % (AUTO) 81.3 %; PLT - PLATELET COUNT 124 10^3/uL (130-450); RED BLOOD COUNT 3.67 10^6/uL (4.70-6.10); RED CELL DISTRIBUTION WIDTH 16.7 % (12.0-15.0); WHITE BLOOD COUNT 6.8 x10^3/uL (4.8-10.8)
[2020-06-18 15:18] LABS: INR 1.3 (0.8-1.2); PT - PROTHROMBIN TIME 14.8 secs (9.9-12.6)
[2020-06-18 15:23] LABS: ALBUMIN 3.3 g/dL (3.2-5.5); ALBUMIN/GLOBULIN RATIO 0.8 (1.0-2.2); CALCIUM 8.9 mg/dL (8.5-10.3); CREATININE 1.3 mg/dL (0.6-1.2); TOTAL PROTEIN 7.4 g/dL (6.7-8.2)
--- NOTE | 2020-06-18 15:29 | CT Report ---
PROCEDURE: HEAD WO INDICATIONS: stroke symptoms TECHNIQUE: Noncontrast 4.5 mm thick angled axial sections acquired from the foramen magnum to the vertex. For r adiation dose reduction, the following was used: automated exposure control, adjustment of mA and/or kV according to patient size. COMPARISON: None. FINDINGS: Image quality: Excellent. CSF spaces: Basal cisterns are patent. No extra-axial fluid collections. Ventricles are normal in size and shape. 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 Diffuse ce rebral and cerebellar cortical atrophy is also seen with mild periventricular and deep white matter c hronic small vessel ischemic changes. No significant midline shift. No intracranial masses or hemorr geovany. Dupree-white matter interface is normal. Skull and face: Calvarium and visualized facial bones are intact, without suspicious lesions. Sinuses: Visualized sinuses and mastoids are clear. IMPRESSION: 1. Suggestion of large old left MCA territory infarction with encephalomalacia and large extra-axial CSF density along left frontal, temporal and parietal region extending to left posterior fossa. Mild mass effect on adjacent left cerebral hemisphere and left cerebellum is seen. 2. No evidence of acute intracranial bleed. No definite acute infarction. No significant midline shif t. Reviewed by: Tim Herrera MD on 06/18/2020 3:28 PM PDT Approved by: Tim Herrera MD on 06/18/2020 3:28 PM PDT Station ID: [id number]
--- NOTE | 2020-06-18 15:43 | XRAY Report ---
PROCEDURE: Chest 1 View X-Ray INDICATIONS: chest pain TECHNIQUE: One view of the chest was acquired. COMPARISON: CXR 04/26/2018. Lung bases on CT abdomen and pelvis 04/06/2019. FINDINGS: Surgical changes and devices: Left pacemaker with left atrial AICD lead and right atrial lead. Post m edian sternotomy and CABG. Lungs and pleura: No pleural effusions or pneumothorax. Lungs are clear. Mediastinum: Mediastinal contours appear normal. Heart size is prominent, unchanged. Bones and chest wall: No suspicious bony lesions. Overlying soft tissues appear unremarkable. IMPRESSION: No acute cardiopulmonary abnormality. Reviewed by: Bubba Thompson MD on 06/18/2020 3:41 PM PDT Approved by: Bubba Thompson MD on 06/18/2020 3:41 PM PDT Station ID: [id number]
[2020-06-18 15:53] LABS: BILIRUBIN,URINE NEGATIVE (NEGATIVE); GLUCOSE, URINE (UA) 250 mg/dL (NEGATIVE); KETONES,URINE (UA) NEGATIVE (NEGATIVE); LEUKOCYTE ESTERASE, URINE NEGATIVE (NEGATIVE); NITRITE,URINE NEGATIVE (NEGATIVE); OCCULT BLOOD,URINE NEGATIVE (NEGATIVE); PROTEIN,URINE NEGATIVE (NEGATIVE); UROBILINOGEN,URINE 1 (NORMAL) E.U./dL (NORMAL)
[2020-06-18 15:54] LABS: CLARITY,URINE CLEAR (CLEAR)
[2020-06-18 16:24] VITALS: BP 114/97
== END 2020-06-18 16:23 | disposition home or self-care (01) ==
LOC: ED 14:19
DX: E86.0 Dehydration (principal); I65.22 Occlusion and stenosis of left carotid artery; G93.0 Cerebral cysts; E11.42 Type 2 diabetes mellitus with diabetic polyneuropathy; Z79.4 Long term (current) use of insulin; I11.0 Hypertensive heart disease with heart failure; I50.9 Heart failure, unspecified; K74.60 Unspecified cirrhosis of liver; I25.10 Atherosclerotic heart disease of native coronary artery without angina pectoris; I25.2 Old myocardial infarction; Z95.1 Presence of aortocoronary bypass graft; Z95.810 Presence of automatic (implantable) cardiac defibrillator; Z79.01 Long term (current) use of anticoagulants; Z79.82 Long term (current) use of aspirin; Z87.891 Personal history of nicotine dependence
CPT/HCPCS: 36415; 70450; 71045; 80053; 81001; 81003; 82140; 83690; 85025; 85610; 87086; 96360; 99284

== ENCOUNTER 2020-09-09 10:34 | Emergency (ER) | payer MEDICARE, OTHER ==
[2020-09-09] MEDS ORDERED: oxyCODONE 5 MG TABLET PO STA (11:19)
[2020-09-09] MEDS ORDERED: LIDOCAINE PATCH 5% TOP STA (11:19)
--- NOTE | 2020-09-09 11:27 | ED Physician Documentation ---
History of Present Illness - Stated complaint Stated Complaint: RIB PX - Chief complaint Chief Complaint: Trauma Ch/Bk - History obtained from History obtained from: Patient - History of Present Illness Timing: How many weeks ago (1) Pain level max: 6 Pain level now: 5 - Additonal information Additional information: 69-year-old male presents to the emergency department with left-sided rib pain. This started about a week ago after he fell and hit his left side on a dresser. Worse with movement, better with rest. No difficulty breathing. Has not taken anything for pain. Review of Systems Constitutional: denies: Fever, Chills Throat: denies: Sore throat Respiratory: denies: Cough GI: denies: Nausea, Vomiting, Diarrhea Skin: denies: Rash Musculoskeletal: denies: Neck pain, Back pain PD PAST MEDICAL HISTORY - Past Medical History Cardiovascular: Congestive heart failure, Hypertension, High cholesterol, Coronary artery disease, Angina, [place], Atrial flutter Respiratory: COPD, Shortness of breath, Sleep apnea, CPAP use Neuro: TIA, Peripheral neuropathy, Tremors (right hand tremor, weakness) Endocrine/Autoimmune: Type 2 diabetes GI: GERD, GI bleed, Ulcers : Benign prostate hypertrophy, Renal insuffiency, Nocturia, Frequency HEENT: Chronic vision loss, Chronic sinusitis, Macular degeneration, Chronic hearing loss Psych: Depression, Anxiety Musculoskeletal: Osteoarthritis, Fatigue, Chronic back pain Derm: None - Past Surgical History Past Surgical History: Yes General: Cholecystectomy, EGD Ortho: Arthroscopic surgery, Spine surgery Cardiovascular: CABG, Coronary stent, Pacemaker, AICD - Present Medications Home Medications: Ambulatory Orders Medication Instructions Recorded Confirmed Apixaban [Eliquis] 5 mg PO BID 03/03/15 04/04/19 Aspirin [Aspir 81] 81 mg PO DAILY 03/03/15 04/04/19 Esomeprazole Magnesium [Nexium] 40 mg PO QDAC 03/03/15 04/04/19 Furosemide 40 mg PO DAILY 03/03/15 04/04/19 Metformin HCl [Metformin HCl ER] 500 mg PO BIDWM 03/03/15 04/04/19 Ranolazine [Ranexa] 1,000 mg PO BID 03/03/15 04/04/19 Rosuvastatin Calcium [Crestor] 40 mg PO DAILY 03/03/15 04/04/19 Sertraline HCl 100 mg PO DAILY 03/03/15 04/04/19 Spironolactone 25 mg PO DAILY 03/03/15 04/04/19 carvediloL [Coreg] 6.25 mg PO BID 03/03/15 04/04/19 lisinopriL [Lisinopril] 5 mg PO DAILY 03/03/15 04/04/19 Insulin Lispro Protamin/Lispro 70 units SUBQ QDBREAKFAST 01/19/16 04/04/19 [Humalog Mix 75-25 Vial] Amiodarone HCl 200 mg PO DAILY 04/04/19 04/04/19 Insulin Lispro Protamin/Lispro 50 units SUBQ QDDINNER 04/04/19 04/04/19 [Humalog Mix 75-25 Vial] Midodrine 2.5 mg PO BID 04/04/19 04/04/19 Ubidecarenone [Coenzyme Q10] 20 meq PO DAILY 04/04/19 04/04/19 traMADol [Ultram] 50 - 100 mg PO Q6H PRN #20 tablet 04/06/20 Lidocaine Patch 5% [Lidoderm Patch] 1 patch TOP DAILY PRN #10 patch 09/09/20 Oxycodone HCl/Acetaminophen 1 - 2 each PO Q6H PRN #14 tablet 09/09/20 [Percocet 5-325 mg Tablet] - Allergies Allergies/Adverse Reactions: Allergies Allergy/AdvReac Type Severity Reaction Status Date / Time No Known Drug Allergies Allergy Verified 04/04/19 12:28 - Social History Does the pt smoke?: No Smoking Status: Former smoker Does the pt drink ETOH?: Yes Does the pt have substance abuse?: No - POLST Patient has POLST: No POLST Status: DNR PD ED PE NORMAL - Vitals Vital signs reviewed: Yes - General General: Alert and oriented X 3, No acute distress - HEENT HEENT: Moist mucous membranes - Neck Neck: Supple, no meningeal sign - Cardiac Cardiac: RRR, Other (Tender to palpation over the left anterior chest wall. There is ecchymosis present. No crepitus. Most of the bruising is over ribs approximately 9 through 11.) - Respiratory Respiratory: No respiratory distress, Clear bilaterally - Abdomen Abdomen: Soft, Non tender, Non distended - Derm Derm: Warm and dry - Neuro Neuro: Alert and oriented X 3 Results - Vitals Vitals: Vital Signs - 24 hr 09/09/20 09/09/20 09/09/20 10:48 11:21 12:01 Temperature 36.1 C L Heart Rate 74 69 70 Respiratory 12 19 17 Rate Blood Pressure 125/69 130/76 122/71 O2 Saturation 2 L 99 99 09/09/20 12:21 Temperature 36.5 C Heart Rate Respiratory Rate Blood Pressure O2 Saturation Oxygen O2 Source Room air - Rads (name of study) Head CT Radiology: Prelim report reviewed, EMP read contemporaneously, See rad report (No acute abnormality) Chest CT Radiology: Prelim report reviewed, EMP read contemporaneously, See rad report (No acute rib abnormalities.) PD MEDICAL DECISION MAKING - ED course Complexity details: reviewed results, re-evaluated patient, considered differential, d/w patient, d/w family ED course: 69-year-old male presents to the emergency department with left rib pain after a fall. He is on Eliquis. Unsure if he hit his head or not. No acute findings on head CT. No acute findings on CT scan of the chest. Pain well controlled. Will prescribe pain medication for home and have him follow-up with his doctor for further care. Patient counseled regarding signs and symptoms for which I believe and urgent re-evaluation would be necessary. Patient with good understanding of and agreement to plan and is comfortable going home at this time This document was made in part using voice recognition software. While efforts are made to proofread this document, sound alike and grammatical errors may occur. Departure - Departure Disposition: 01 Home, Self Care Clinical Impression: Chest wall contusion Qualifiers: Encounter type: initial encounter Laterality: left Qualified Code(s): S20.212A - Contusion of left front wall of thorax, initial encounter Condition: Good Instructions: ED Contusion Chest Wall Follow-Up: your,doctor in 1 week [Other] Prescriptions: Lidocaine Patch 5% [Lidoderm Patch] 1 patch TOP DAILY PRN #10 patch PRN Reason: pain Oxycodone HCl/Acetaminophen [Percocet 5-325 mg Tablet] 1 - 2 each PO Q6H PRN #14 tablet PRN Reason: pain Comments: Return if you worsen. Your CT scans do not show any acute abnormalities today. Do not drink alcohol or drive while on narcotic pain medicine. Note that many narcotic pain relievers also contain tylenol/acetaminophen. Please ensure that your total dose of acetaminophen from all sources does not exceed 3 grams (3000mg) per day. You may constipated on this medication, take a stool softener such as "Colace" twice a day while you are on it. Also recommend a wnlu-zrv-gnxlvoc laxative such as senna or MiraLAX any day that you do not have a bowel movement. If you received narcotic pain medication in the emergency department, do not drive or operate machinery for the next 24 hours. IMPRESSION: No displaced rib fractures are seen. No pneumothorax. Tree-in-bud type opacity can be seen, which is most prominent within the upper lungs. This is nonspecific, yet it is most commonly seen in patients with chronic infection. Mildly enlarged mediastinal lymph nodes are seen, which are nonspecific, yet are most likely reactive in nature. A mild amount of ascites can be seen involving the upper abdomen. Incidental note is made of: CABG Atherosclerotic calcification, including dense coronary artery calcification AICD Cholecystectomy clips Splenomegaly Discharge Date/Time: 09/09/20 12:21
--- NOTE | 2020-09-09 11:55 | CT Report ---
PROCEDURE: HEAD WO INDICATIONS: fall head injury pt takes eliquis TECHNIQUE: Noncontrast 4.5 mm thick angled axial sections acquired from the foramen magnum to the vertex. For r adiation dose reduction, the following was used: automated exposure control, adjustment of mA and/or kV according to patient size. COMPARISON: Prior head CT 06/18/2020. Correlation is also made with the accompanying chest CT, 2019. FINDINGS: Image quality: Excellent. CSF spaces: A large, stable left sided arachnoid cyst is seen, which is centered within the left mid dle cranial fossa. Basal cisterns are patent. Ventricles are normal in size and shape. Brain: No midline shift. No intracranial masses or hemorrhage. Dupree-white matter interface is norm al. Skull and face: Calvarium and visualized facial bones are intact, without suspicious lesions. Sinuses: Visualized sinuses and mastoids are clear. IMPRESSION: No intracranial hemorrhage is seen. Stable examination demonstrating a large left-sided arachnoid cyst. Reviewed by: Handy Galindo MD on 09/09/2020 10:54 AM [facility] Approved by: Handy Galindo MD on 09/09/2020 10:54 AM [facility] Station ID: [id number]
--- NOTE | 2020-09-09 12:00 | CT Report ---
PROCEDURE: CHEST WO INDICATIONS: fall, L sided rib pain TECHNIQUE: Noncontrast 5 mm thick sections acquired from the pulmonary apices to the posterior costophrenic angl es. 7 mm thick coronal and sagittal MIP reformats were then acquired. For radiation dose reduction, the following was used: automated exposure control, adjustment of mA and/or kV according to patient size. COMPARISON: Correlation is made with prior chest radiograph, 06/18/2020. Correlation is also made wit h the accompanying head CT, 09/09/2020. FINDINGS: Image quality: Excellent. Lungs and pleura: Tree-in-bud type opacity can be seen within the lungs, which is most prominent wit hin the upper lungs are more prominent on the right side than on the left. No pleural effusions or pn eumothorax. Central and peripheral airways are patent and normal in caliber. Mediastinum: AICD Post CABG changes are seen. Advance, dense coronary artery calcification is seen. Heart size is normal. No pericardial effusion. Enlarged mediastinal lymph nodes are seen, including a right paratracheal lymph node that measures 16 x 13 mm. Thoracic aorta and central pulmonary arteri es are normal in size. Atherosclerotic calcification is seen. Esophagus is normal in caliber. No hi atal hernia. Bones and chest wall: No suspicious bony lesions. Age-appropriate degenerative changes are seen. N o vertebral body compression fractures. No axillary or supraclavicular adenopathy by size criteria. The thyroid is normal in size. Abdomen: Cholecystectomy clips are seen. There is a small amount of ascites seen. The spleen is enla rged, measuring 16 cm AP. The visualized portions of the upper abdominal structures are otherwise wit hin normal limits. IMPRESSION: No displaced rib fractures are seen. No pneumothorax. Tree-in-bud type opacity can be seen, which is most prominent within the upper lungs. This is nonspec ific, yet it is most commonly seen in patients with chronic infection. Mildly enlarged mediastinal lymph nodes are seen, which are nonspecific, yet are most likely reactive in nature. A mild amount of ascites can be seen involving the upper abdomen. Incidental note is made of: CABG Atherosclerotic calcification, including dense coronary artery calcification AICD Cholecystectomy clips Splenomegaly Reviewed by: Handy Galindo MD on 09/09/2020 10:59 AM [facility] Approved by: Handy Galindo MD on 09/09/2020 10:59 AM [facility] Station ID: [id number]
[2020-09-09 12:01] VITALS: BP 122/71
== END 2020-09-09 12:21 | disposition home or self-care (01) ==
LOC: ED 10:34
DX: S20.212A Contusion of left front wall of thorax, initial encounter (principal); W01.190A Fall on same level from slipping, tripping and stumbling with subsequent striking against furniture, initial encounter; Z86.73 Personal history of transient ischemic attack (TIA), and cerebral infarction without residual deficits; Z79.01 Long term (current) use of anticoagulants; G93.0 Cerebral cysts; E11.42 Type 2 diabetes mellitus with diabetic polyneuropathy; Z79.4 Long term (current) use of insulin; I25.10 Atherosclerotic heart disease of native coronary artery without angina pectoris; Z95.1 Presence of aortocoronary bypass graft; Z95.810 Presence of automatic (implantable) cardiac defibrillator; Z87.891 Personal history of nicotine dependence; I11.0 Hypertensive heart disease with heart failure; I50.9 Heart failure, unspecified; Z79.82 Long term (current) use of aspirin
CPT/HCPCS: 70450; 71250; 99284; A9270

== ENCOUNTER 2020-09-27 09:19 | Outpatient (CLI) | payer MEDICARE, OTHER ==
[2020-09-27 09:48] LABS: ALBUMIN 3.1 g/dL (3.2-5.5); CALCIUM 9.1 mg/dL (8.5-10.3); CREATININE 0.9 mg/dL (0.6-1.2); PHOSPHORUS 2.9 mg/dL (2.5-4.6)
== END 2020-09-27 09:20 | disposition home or self-care (01) ==
LOC: LAB 09:19
PROVIDERS: ATTEND Internal Medicine Cardiovascular Disease
DX: I50.22 Chronic systolic (congestive) heart failure (principal); I48.0 Paroxysmal atrial fibrillation; I25.10 Atherosclerotic heart disease of native coronary artery without angina pectoris; I25.5 Ischemic cardiomyopathy; I25.2 Old myocardial infarction; E87.6 Hypokalemia
CPT/HCPCS: 36415; 80069

== ENCOUNTER 2020-09-30 09:15 | Outpatient (CLI) | payer MEDICARE, OTHER ==
--- NOTE | 2020-09-30 13:13 | Ultrasound Report ---
PROCEDURE: Abdomen Limited INDICATIONS: CRYPTOGENIC CIRRHOSIS, ASCITES - EVAL FOR PARA TECHNIQUE: Real-time focused scanning was performed of the abdomen, with image documentation. COMPARISON: CT chest, 09/09/2020 CT abdomen and pelvis, 04/06/2019. FINDINGS: There is a small amount of ascites. IMPRESSION: A small amount of ascites, is not enough for safe therapeutic paracentesis. Reviewed by: Brianna Gruber MD on 09/30/2020 1:11 PM PST Approved by: Brianna Gruber MD on 09/30/2020 1:11 PM PST Station ID: [id number]
== END 2020-09-30 09:16 | disposition home or self-care (01) ==
LOC: DI 09:15
PROVIDERS: ATTEND Internal Medicine Transplant Hepatology
DX: K74.69 Other cirrhosis of liver (principal); R18.8 Other ascites

== ENCOUNTER 2020-10-06 15:35 | Emergency (ER) | payer MEDICARE, OTHER ==
[2020-10-06 16:01] LABS: BASOPHILS # (AUTO) 0.1 10^3/uL (0.0-0.1); BASOPHILS % (AUTO) 1.3 %; EOSINOPHILS # (AUTO) 0.4 10^3/uL (0.0-0.7); EOSINOPHILS % (AUTO) 6.1 %; HGB - HEMOGLOBIN 11.8 g/dL (14.0-18.0); LYMPHOCYTES # (AUTO) 0.8 10^3/uL (1.5-3.5); LYMPHOCYTES % (AUTO) 10.7 %; MEAN CORPUSCULAR HEMOGLOBIN 26.9 pg (27.0-31.0); MEAN CORPUSCULAR HGB CONC 31.4 g/dL (32.0-36.0); MEAN CORPUSCULAR VOLUME 85.8 fL (80.0-94.0); MEAN PLATELET VOLUME 10.9 fL (7.4-11.4); MONOCYTES # (AUTO) 0.4 10^3/uL (0.0-1.0); NEUTROPHILS # (AUTO) 5.4 10^3/uL (1.5-6.6); NEUTROPHILS % (AUTO) 75.6 %; PLT - PLATELET COUNT 105 10^3/uL (130-450); RED BLOOD COUNT 4.38 10^6/uL (4.70-6.10); RED CELL DISTRIBUTION WIDTH 16.9 % (12.0-15.0); WHITE BLOOD COUNT 7.2 x10^3/uL (4.8-10.8)
[2020-10-06] MEDS ORDERED: HYDROmorphone 1 MG/ML CARPUJECT IVP STA ×2 (16:12→16:48)
[2020-10-06 16:22] LABS: BILIRUBIN,URINE NEGATIVE (NEGATIVE); GLUCOSE, URINE (UA) >=1000 mg/dL (NEGATIVE); KETONES,URINE (UA) NEGATIVE (NEGATIVE); LEUKOCYTE ESTERASE, URINE NEGATIVE (NEGATIVE); NITRITE,URINE NEGATIVE (NEGATIVE); OCCULT BLOOD,URINE NEGATIVE (NEGATIVE); PROTEIN,URINE NEGATIVE (NEGATIVE); UROBILINOGEN,URINE 0.2 (NORMAL) E.U./dL (NORMAL)
[2020-10-06 16:23] LABS: CLARITY,URINE CLEAR (CLEAR)
[2020-10-06 16:42] LABS: ALBUMIN 3.6 g/dL (3.2-5.5); ALBUMIN/GLOBULIN RATIO 0.8 (1.0-2.2); CALCIUM 9.5 mg/dL (8.5-10.3); TOTAL PROTEIN 8.3 g/dL (6.7-8.2)
[2020-10-06] MEDS ORDERED: SODIUM CHLORIDE 0.9% 1,000 ML IV STA (16:47)
[2020-10-06] MEDS ORDERED: INSULIN REGULAR HUMAN 100 UNIT/1 ML 10 ML MDV IVP STA (16:47)
--- NOTE | 2020-10-06 17:00 | CT Report ---
PROCEDURE: Abdomen/Pelvis WO INDICATIONS: Right flank pain TECHNIQUE: Noncontrast 5 mm thick sections acquired from the diaphragms to the symphysis. 5 mm coronal and sagi ttal reformats were then performed. For radiation dose reduction, the following was used: automated exposure control, adjustment of mA and/or kV according to patient size. COMPARISON: None. FINDINGS: Image quality: Excellent. ABDOMEN: Lung bases: Lung bases are clear. Heart size is normal. Solid organs: There is hepatosplenomegaly. Perihepatic ascites. Nodular contour of the liver suggesti ve of cirrhosis. Gallbladder is surgically absent. Pancreas is normal in contours. No adrenal nodul es. No hydronephrosis. There is 2-3 mm right nephrolithiasis. Bilateral renal hilar vascular calcific ations are seen. Ureters appear nondilated. Bladder unremarkable. No bladder calculi. Peritoneum and bowel: Unenhanced bowel loops demonstrate normal wall thickness and caliber. There is trace ascites seen in both paracolic gutters. Colonic diverticulosis incidentally noted without evid ence of acute inflammation. No free air. The appendix is not clearly identified however no suspicious inflammatory changes in the right lower quadrant. Nodes and vessels: No retroperitoneal or mesenteric adenopathy by size criteria. Aorta and inferior vena cava are normal in caliber. Scattered vascular calcifications are present in the aorta. Small fat-containing periumbilical hernia, subcentimeter in size. PELVIS: Miscellaneous: No inguinal hernias or adenopathy. Lumbar spondylosis and facet arthropathy. IMPRESSION: Nonobstructive right nephrolithiasis. Hepatosplenomegaly Mild scattered ascites. Reviewed by: Antonio Blackmon MD on 10/06/2020 4:58 PM PST Approved by: Antonio Blackmon MD on 10/06/2020 4:58 PM PST Station ID: [id number]
--- NOTE | 2020-10-06 18:06 | ED Physician Documentation ---
PD HPI BACK PAIN - Stated complaint Stated Complaint: LOWER RT BACK PX - Chief complaint Chief Complaint: Back Pain - History obtained from History obtained from: Patient - Additional information Additional information: 70-year-old gentleman with history of cirrhosis diabetes presents with right- sided mid to low back pain. Tried oxycodone and Tylenol at home without relief. Pain is much worse with position changes and is not too bad at rest. He denies urinary complaints. He notes that his blood sugars at home have been high. Review of Systems Ten Systems: 10 systems reviewed and negative Constitutional: denies: Fever, Chills, Myalgias Cardiac: reports: Reviewed and negative Respiratory: reports: Reviewed and negative PD PAST MEDICAL HISTORY - Past Medical History Cardiovascular: Congestive heart failure, Hypertension, High cholesterol, Coronary artery disease, Angina, [place], Atrial flutter Respiratory: COPD, Shortness of breath, Sleep apnea, CPAP use Neuro: TIA, Peripheral neuropathy, Tremors Endocrine/Autoimmune: Type 2 diabetes GI: GERD, GI bleed, Ulcers : Benign prostate hypertrophy, Renal insuffiency, Nocturia, Frequency HEENT: Chronic vision loss, Chronic sinusitis, Macular degeneration, Chronic hearing loss Psych: Depression, Anxiety Musculoskeletal: Osteoarthritis, Fatigue, Chronic back pain Derm: None - Past Surgical History Past Surgical History: Yes General: Cholecystectomy, EGD Ortho: Arthroscopic surgery, Spine surgery Cardiovascular: CABG, Coronary stent, Pacemaker, AICD - Present Medications Home Medications: Ambulatory Orders Medication Instructions Recorded Confirmed Apixaban [Eliquis] 5 mg PO BID 03/03/15 10/06/20 Aspirin [Aspir 81] 81 mg PO DAILY 03/03/15 10/06/20 Esomeprazole Magnesium [Nexium] 40 mg PO QDAC 03/03/15 10/06/20 Spironolactone 50 mg PO DAILY 03/03/15 10/06/20 Insulin Lispro Protamin/Lispro 70 units SUBQ QDBREAKFAST 01/19/16 04/04/19 [Humalog Mix 75-25 Vial] Insulin Lispro Protamin/Lispro 50 units SUBQ QDDINNER 04/04/19 04/04/19 [Humalog Mix 75-25 Vial] Midodrine 2.5 mg PO BID 04/04/19 10/06/20 Lidocaine Patch 5% [Lidoderm Patch] 1 patch TOP DAILY PRN #10 patch 09/09/20 Oxycodone HCl/Acetaminophen 1 - 2 each PO Q6H PRN #14 tablet 09/09/20 10/06/20 [Percocet 5-325 mg Tablet] Donepezil HCl [Aricept] 10 mg PO HS 10/06/20 10/06/20 Ezetimibe [Zetia] 10 mg PO DAILY 10/06/20 10/06/20 Lisinopril [Prinivil] 10 mg PO DAILY 10/06/20 10/06/20 Memantine HCl [Namenda] 10 mg PO BID 10/06/20 10/06/20 Rosuvastatin Calcium [Crestor] 5 mg PO HS 10/06/20 10/06/20 Sertraline HCl [Zoloft] 100 mg PO DAILY 10/06/20 10/06/20 Torsemide 20 mg PO DAILY 10/06/20 10/06/20 carvediloL [Coreg] 3.125 mg PO BID 10/06/20 10/06/20 oxyCODONE [Roxicodone] 5 mg PO Q4H PRN #20 tablet 10/06/20 - Allergies Allergies/Adverse Reactions: Allergies Allergy/AdvReac Type Severity Reaction Status Date / Time No Known Drug Allergies Allergy Verified 10/06/20 15:43 - Social History Does the pt smoke?: No Smoking Status: Former smoker Does the pt drink ETOH?: No Does the pt have substance abuse?: No - Immunizations Immunizations are current?: Yes - POLST Patient has POLST: No POLST Status: DNR PD ED PE NORMAL - Vitals Vital signs reviewed: Yes - General General: Alert and oriented X 3, No acute distress - HEENT HEENT: PERRL, EOMI - Neck Neck: Supple, no meningeal sign, No bony TTP - Cardiac Cardiac: RRR, No murmur - Respiratory Respiratory: No respiratory distress, Clear bilaterally - Abdomen Abdomen: Normal bowel sounds, Soft, Non tender - Back Back: Other (There is muscular tenderness of the right low back, no midline spinal tenderness. He is in no distress when still but requires some help due to the pain when he moves or changes position.) - Derm Derm: Normal color, Warm and dry - Extremities Extremities: No edema, No calf tenderness / cord - Neuro Neuro: Alert and oriented X 3, Normal speech Results - Vitals Vitals: Vital Signs - 24 hr 12/09/20 12/09/20 12/09/20 15:39 16:10 17:20 Temperature 36.4 C L 37 C 37 C Heart Rate 85 69 83 Respiratory 16 18 16 Rate Blood Pressure 150/64 H 115/57 L 117/64 O2 Saturation 90 L 100 96 10/06/20 18:14 Temperature 36.7 C Heart Rate 92 Respiratory 17 Rate Blood Pressure 123/79 O2 Saturation 95 Oxygen O2 Source Room air - Labs Labs: Laboratory Tests 10/06/20 10/06/20 10/06/20 15:55 15:55 16:10 WBC 7.2 RBC 4.38 L Hgb 11.8 L Hct 37.6 L MCV 85.8 MCH 26.9 L MCHC 31.4 L RDW 16.9 H Plt Count 105 L MPV 10.9 Neut # (Auto) 5.4 Lymph # (Auto) 0.8 L [place] # (Auto) 0.4 Eos # (Auto) 0.4 Baso # (Auto) 0.1 Absolute Nucleated RBC 0.00 Nucleated RBC % 0.0 Sodium 130 L Potassium 3.9 Chloride 95 L Carbon Dioxide 24 Anion Gap 11.0 BUN 19 Creatinine 1.0 Estimated GFR (MDRD) 74 L Glucose 526 H* POC Whole Bld Glucose Calcium 9.5 Total Bilirubin 2.0 H AST 58 H ALT 61 H Alkaline Phosphatase 528 H Total Protein 8.3 H Albumin 3.6 Globulin 4.7 H Albumin/Globulin Ratio 0.8 L Lipase 101 H Urine Color YELLOW Urine Clarity CLEAR Urine pH 7.0 Ur Specific [place] 1.010 Urine Protein NEGATIVE Urine Glucose (UA) >=1000 H Urine Ketones NEGATIVE Urine Occult Blood NEGATIVE Urine Nitrite NEGATIVE Urine Bilirubin NEGATIVE Urine Urobilinogen 0.2 (NORMAL) Ur Leukocyte Esterase NEGATIVE Ur Microscopic Review NOT INDICATED Urine Culture Comments NOT INDICATED 10/06/20 17:48 WBC RBC Hgb Hct MCV MCH MCHC RDW Plt Count MPV Neut # (Auto) Lymph # (Auto) [place] # (Auto) Eos # (Auto) Baso # (Auto) Absolute Nucleated RBC Nucleated RBC % Sodium Potassium Chloride Carbon Dioxide Anion Gap BUN Creatinine Estimated GFR (MDRD) Glucose POC Whole Bld Glucose 379 H Calcium Total Bilirubin AST ALT Alkaline Phosphatase Total Protein Albumin Globulin Albumin/Globulin Ratio Lipase Urine Color Urine Clarity Urine pH Ur Specific [place] Urine Protein Urine Glucose (UA) Urine Ketones Urine Occult Blood Urine Nitrite Urine Bilirubin Urine Urobilinogen Ur Leukocyte Esterase Ur Microscopic Review Urine Culture Comments - Rads (name of study) Ct KUB Radiology: EMP read contemporaneously (Nephrolithiasis, hepatosplenomegaly and mild ascites) PD MEDICAL DECISION MAKING - ED course ED course: With known cirrhosis presents with right flank pain. Is very motion related and winces with position changes so most consistent with a muscular etiology. His pain was controlled here but noted to be significantly hyperglycemic. CT was done without findings of ureterolithiasis or other reason for the pain. His blood sugar was treated with IV fluids and IV insulin. He really wanted to take him a prepack, I discussed with him that was too early in the evening for a prepack but he stated he did not have transportation to [place] only home. Departure - Departure Disposition: 01 Home, Self Care Clinical Impression: Back pain, Ascites of liver Condition: Stable Record reviewed to determine appropriate education?: Yes Instructions: ED Low Back Pain Injury, ED Hyperglycemia Diabetic Prescriptions: oxyCODONE [Roxicodone] 5 mg PO Q4H PRN #20 tablet PRN Reason: Pain Comments: Although you do have kidney stones on the right, there are still up in the kidney where they should not be bothering you. Other than your chronic liver disease no other acute findings were found tonight. Given the description of your pain I think this is just regular old muscular back pain, please return if worsening or if you develop new or worsening symptoms. Make sure to follow-up with your primary care physician for follow-up for this as well as to improve your diabetic management given that your blood sugar was 500 before we worked on it tonight. Do not drink or drive while taking prescription pain medications,
[2020-10-06 18:14] VITALS: BP 123/79
== END 2020-10-06 19:07 | disposition home or self-care (01) ==
LOC: ED 15:35
DX: M54.5 Low back pain (principal); E11.65 Type 2 diabetes mellitus with hyperglycemia; R18.8 Other ascites; K74.60 Unspecified cirrhosis of liver; N20.0 Calculus of kidney; I10 Essential (primary) hypertension; E11.42 Type 2 diabetes mellitus with diabetic polyneuropathy; Z79.4 Long term (current) use of insulin; Z86.73 Personal history of transient ischemic attack (TIA), and cerebral infarction without residual deficits; Z79.01 Long term (current) use of anticoagulants; Z79.82 Long term (current) use of aspirin; Z87.891 Personal history of nicotine dependence; Z66 Do not resuscitate
CPT/HCPCS: 36415; 74176; 80053; 81003; 83690; 85025; 96374; 96376; 99283; 99284; J1170; J1815; 81001; 87086

== ENCOUNTER 2021-02-28 12:36 | Emergency (ER) | payer MEDICARE, OTHER ==
--- OUTSIDE RECORDS SUMMARY | 2021-02-28 12:52 | EXTERNAL MEDICAL SUMMARY RPT | Continuity of Care Document ---
:1950 Demographics Phone Unavailable Preferred Language Unknown Marital Status Unknown [employer] Affiliation Unknown Race Unknown Ethnic Group Unknown Author Organization [facility] Address [address] [place] [address] Phone Social History date description facility [id number]
[2021-02-28 13:32] LABS: BASOPHILS # (AUTO) 0.1 10^3/uL (0.0-0.1); BASOPHILS % (AUTO) 0.9 %; EOSINOPHILS # (AUTO) 0.5 10^3/uL (0.0-0.7); EOSINOPHILS % (AUTO) 7.1 %; HGB - HEMOGLOBIN 10.3 g/dL (14.0-18.0); LYMPHOCYTES % (AUTO) 15.2 %; MEAN CORPUSCULAR HEMOGLOBIN 25.4 pg (27.0-31.0); MEAN CORPUSCULAR HGB CONC 30.3 g/dL (32.0-36.0); MEAN CORPUSCULAR VOLUME 83.7 fL (80.0-94.0); MEAN PLATELET VOLUME 10.2 fL (7.4-11.4); MONOCYTES # (AUTO) 0.4 10^3/uL (0.0-1.0); MONOCYTES % (AUTO) 6.2 %; NEUTROPHILS # (AUTO) 4.7 10^3/uL (1.5-6.6); NEUTROPHILS % (AUTO) 70.3 %; PLT - PLATELET COUNT 109 10^3/uL (130-450); RED BLOOD COUNT 4.06 10^6/uL (4.70-6.10); RED CELL DISTRIBUTION WIDTH 17.6 % (12.0-15.0); WHITE BLOOD COUNT 6.6 x10^3/uL (4.8-10.8)
[2021-02-28] MEDS ORDERED: carvediloL 3.125 MG TABLET PO STA (13:37)
[2021-02-28 13:38] LABS: VBG BASE EXCESS 0.9 mmol/L (-2 - +2); VBG HCO3 26.1 mmol/L (23-28); VBG PH 7.391 (7.31-7.41); VBG PO2 28.6 mmHg (25-47); VBG TOTAL CO2 27.4 mmol/L (24-29)
[2021-02-28 13:39] LABS: INR 1.3 (0.8-1.2); PT - PROTHROMBIN TIME 14.1 secs (9.9-12.6)
[2021-02-28 13:46] LABS: PARTIAL THROMBOPLASTIN TIME 31.2 secs (24.9-33.3)
[2021-02-28 13:48] LABS: ALBUMIN 3.2 g/dL (3.2-5.5); ALBUMIN/GLOBULIN RATIO 0.8 (1.0-2.2); CALCIUM 9.3 mg/dL (8.5-10.3); CREATININE 0.8 mg/dL (0.6-1.2); POTASSIUM 3.3 mmol/L (3.5-5.0); TOTAL PROTEIN 7.3 g/dL (6.7-8.2)
--- NOTE | 2021-02-28 14:42 | XRAY Report ---
PROCEDURE: Chest 1 View X-Ray INDICATIONS: Chest Pain TECHNIQUE: One view of the chest was acquired. COMPARISON: None FINDINGS: Surgical changes and devices: Pacemaking device/sternotomy wires.. Lungs and pleura: No pleural effusions or pneumothorax. Lungs are mildly edematous. Mediastinum: Mediastinal contours appear normal. Heart size is globally enlarged to a mild degree. Bones and chest wall: No suspicious bony lesions. Overlying soft tissues appear unremarkable. IMPRESSION: Mild cardiomegaly, mild acute CHF pattern. Prior CABG, cardiac pacemaking device and lead appear norm al. Reviewed by: Sourav Marroquin MD on 02/28/2021 2:41 PM PDT Approved by: Sourav Marroquin MD on 02/28/2021 2:41 PM PDT Station ID: [id number]
[2021-02-28] MEDS ORDERED: FUROSEMIDE 40 MG/4 ML VIAL IVP STA (15:06)
--- NOTE | 2021-02-28 15:18 | ED Physician Documentation ---
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 Patient denies CP but does state he has had "twinges" lasting About a minute to the left armpit, radiating down the left arm while at rest that self resolve. He does not know if it is worse with exertion but does state that it is associated with shortness of breath and states that this is similar to his prior mi. Denies nausea or diaphoresis during these episodes.Patient denies fevers, vomiting or diarrhea, urinary symptoms. His abdominal distention is uncomfortable but not painful. Review of Systems Ten Systems: 10 systems reviewed and negative Constitutional: denies: Fever, Chills Cardiac: reports: Other (pain to armpit radiating to L arm). denies: Chest pain / pressure, Palpitations Respiratory: reports: Dyspnea. denies: Cough GI: reports: Abdominal Swelling. denies: Nausea, Vomiting : denies: Dysuria Skin: denies: Rash Musculoskeletal: denies: Back pain Neurologic: reports: Generalized weakness PD PAST MEDICAL HISTORY - Past Medical History Cardiovascular: Congestive heart failure, Hypertension, High cholesterol, Coronary artery disease, Angina, [place], Atrial flutter Respiratory: COPD, Shortness of breath, Sleep apnea, CPAP use Neuro: TIA, Peripheral neuropathy, Tremors Endocrine/Autoimmune: Type 2 diabetes GI: GERD, GI bleed, Ulcers : Benign prostate hypertrophy, Renal insuffiency, Nocturia, Frequency HEENT: Chronic vision loss, Chronic sinusitis, Macular degeneration, Chronic hearing loss Psych: Depression, Anxiety Musculoskeletal: Osteoarthritis, Fatigue, Chronic back pain Derm: None - Past Surgical History Past Surgical History: Yes General: Cholecystectomy, EGD Ortho: Arthroscopic surgery, Spine surgery Cardiovascular: CABG, Coronary stent, Pacemaker, AICD - Present Medications Home Medications: Ambulatory Orders Medication Instructions Recorded Confirmed Apixaban [Eliquis] 5 mg PO BID 03/03/15 10/06/20 Aspirin [Aspir 81] 81 mg PO DAILY 03/03/15 10/06/20 Esomeprazole Magnesium [Nexium] 40 mg PO QDAC 03/03/15 10/06/20 Spironolactone 50 mg PO DAILY 03/03/15 10/06/20 Insulin Lispro Protamin/Lispro 70 units SUBQ QDBREAKFAST 01/19/16 04/04/19 [Humalog Mix 75-25 Vial] Insulin Lispro Protamin/Lispro 50 units SUBQ QDDINNER 04/04/19 04/04/19 [Humalog Mix 75-25 Vial] Midodrine [ProAmatine] 2.5 mg PO BID 04/04/19 10/06/20 Lidocaine Patch 5% [Lidoderm Patch] 1 patch TOP DAILY PRN #10 patch 09/09/20 Oxycodone HCl/Acetaminophen 1 - 2 each PO Q6H PRN #14 tablet 09/09/20 10/06/20 [Percocet 5-325 mg Tablet] Donepezil HCl [Aricept] 10 mg PO HS 10/06/20 10/06/20 Ezetimibe [Zetia] 10 mg PO DAILY 10/06/20 10/06/20 Lisinopril [Prinivil] 10 mg PO DAILY 10/06/20 10/06/20 Memantine HCl [Namenda] 10 mg PO BID 10/06/20 10/06/20 Rosuvastatin Calcium [Crestor] 5 mg PO HS 10/06/20 10/06/20 Sertraline HCl [Zoloft] 100 mg PO DAILY 10/06/20 10/06/20 Torsemide 20 mg PO DAILY 10/06/20 10/06/20 carvediloL [Coreg] 3.125 mg PO BID 10/06/20 10/06/20 oxyCODONE [Roxicodone] 1 tab PO Q4H PRN #20 tablet 10/07/20 - Allergies Allergies/Adverse Reactions: Allergies Allergy/AdvReac Type Severity Reaction Status Date / Time No Known Drug Allergies Allergy Verified 02/28/21 12:45 - Social History Does the pt smoke?: No Smoking Status: Former smoker Does the pt drink ETOH?: No Does the pt have substance abuse?: No - Immunizations Immunizations are current?: Yes - POLST Patient has POLST: No POLST Status: DNR PD ED PE NORMAL - Vitals Vital signs reviewed: Yes - General General: Alert and oriented X 3, No acute distress, Well developed/nourished - HEENT HEENT: Atraumatic, PERRL, EOMI - Neck Neck: Supple, no meningeal sign - Cardiac Cardiac: RRR - Respiratory Respiratory: Other (BL crackles to posterior lung fischer) - Abdomen Abdomen: Non tender, Other (moderately distended with +fluid wave) - Male Male : Deferred - Rectal Rectal: Deferred - Back Back: No CVA TTP - Derm Derm: Normal color - Extremities Extremities: No deformity, Other (1+ peripheral edema BL LE) - Neuro Neuro: Alert and oriented X 3 - Psych Psych: Normal mood, Normal affect Results - Vitals Vitals: Vital Signs - 24 hr 02/28/21 02/28/21 02/28/21 12:46 14:58 15:19 Temperature 36.5 C Heart Rate 98 70 69 Respiratory 18 22 15 Rate Blood Pressure 120/50 L 123/79 125/75 O2 Saturation 95 99 02/28/21 02/28/21 17:59 18:21 Temperature Heart Rate 71 79 Respiratory 20 Rate Blood Pressure 119/73 O2 Saturation 96 Oxygen O2 Source Room air - Labs Labs: Laboratory Tests 02/28/21 02/28/21 02/28/21 13:25 13:25 13:25 WBC 6.6 RBC 4.06 L Hgb 10.3 L Hct 34.0 L MCV 83.7 MCH 25.4 L MCHC 30.3 L RDW 17.6 H Plt Count 109 L MPV 10.2 Neut # (Auto) 4.7 Lymph # (Auto) 1.0 L [place] # (Auto) 0.4 Eos # (Auto) 0.5 Baso # (Auto) 0.1 Absolute Nucleated RBC 0.00 Nucleated RBC % 0.0 PT 14.1 H INR 1.3 H APTT 31.2 VBG pH VBG pCO2 VBG pO2 VBG HCO3 VBG Total CO2 VBG O2 Saturation VBG Base Excess Sodium 141 Potassium 3.3 L Chloride 108 Carbon Dioxide 25 Anion Gap 8.0 BUN 12 Creatinine 0.8 Estimated GFR (MDRD) 95 Glucose 110 H Calcium 9.3 Total Bilirubin 2.0 H AST 74 H ALT 51 Alkaline Phosphatase 381 H Troponin I High Sens B-Natriuretic Peptide Total Protein 7.3 Albumin 3.2 Globulin 4.1 Albumin/Globulin Ratio 0.8 L Lipase 27 Nasal Adenovirus (PCR) Nasal B. parapertussis DNA (PCR) Nasal Coronavir 229E PCR Nasal Coronavir HKU1 PCR Nasal Coronavir NL63 PCR Nasal Coronavir OC43 PCR Nasal Enterovir/Rhinovir PCR Nasal Influenza B PCR Nasal Influenza A PCR Nasal Parainfluen 1 PCR Nasal Parainfluen 2 PCR Nasal Parainfluen 3 PCR Nasal Parainfluen 4 PCR Nasal RSV (PCR) Nasal B.pertussis DNA PCR Nasal C.pneumoniae (PCR) Roger Human Metapneumo PCR Nasal M.pneumoniae (PCR) Nasal SARS-CoV-2 (PCR) 02/28/21 02/28/21 02/28/21 13:25 13:25 13:25 WBC RBC Hgb Hct MCV MCH MCHC RDW Plt Count MPV Neut # (Auto) Lymph # (Auto) Cocke # (Auto) Eos # (Auto) Baso # (Auto) Absolute Nucleated RBC Nucleated RBC % PT INR APTT VBG pH 7.391 VBG pCO2 44.0 VBG pO2 28.6 VBG HCO3 26.1 VBG Total CO2 27.4 VBG O2 Saturation 56.0 L VBG Base Excess 0.9 Sodium Potassium Chloride Carbon Dioxide Anion Gap BUN Creatinine Estimated GFR (MDRD) Glucose Calcium Total Bilirubin AST ALT Alkaline Phosphatase Troponin I High Sens 35.7 H* B-Natriuretic Peptide 425 H Total Protein Albumin Globulin Albumin/Globulin Ratio Lipase Nasal Adenovirus (PCR) Nasal B. parapertussis DNA (PCR) Nasal Coronavir 229E PCR Nasal Coronavir HKU1 PCR Nasal Coronavir NL63 PCR Nasal Coronavir OC43 PCR Nasal Enterovir/Rhinovir PCR Nasal Influenza B PCR Nasal Influenza A PCR Nasal Parainfluen 1 PCR Nasal Parainfluen 2 PCR Nasal Parainfluen 3 PCR Nasal Parainfluen 4 PCR Nasal RSV (PCR) Nasal B.pertussis DNA PCR Nasal C.pneumoniae (PCR) Roger Human Metapneumo PCR Nasal M.pneumoniae (PCR) Nasal SARS-CoV-2 (PCR) 02/28/21 16:48 WBC RBC Hgb Hct MCV MCH MCHC RDW Plt Count MPV Neut # (Auto) Lymph # (Auto) [place] # (Auto) Eos # (Auto) Baso # (Auto) Absolute Nucleated RBC Nucleated RBC % PT INR APTT VBG pH VBG pCO2 VBG pO2 VBG HCO3 VBG Total CO2 VBG O2 Saturation VBG Base Excess Sodium Potassium Chloride Carbon Dioxide Anion Gap BUN Creatinine Estimated GFR (MDRD) Glucose Calcium Total Bilirubin AST ALT Alkaline Phosphatase Troponin I High Sens B-Natriuretic Peptide Total Protein Albumin Globulin Albumin/Globulin Ratio Lipase Nasal Adenovirus (PCR) NOT DETECTED Nasal B. parapertussis DNA (PCR) NOT DETECTED Nasal Coronavir 229E PCR NOT DETECTED Nasal Coronavir HKU1 PCR NOT DETECTED Nasal Coronavir NL63 PCR NOT DETECTED Nasal Coronavir OC43 PCR NOT DETECTED Nasal Enterovir/Rhinovir PCR NOT DETECTED Nasal Influenza B PCR NOT DETECTED Nasal Influenza A PCR NOT DETECTED Nasal Parainfluen 1 PCR NOT DETECTED Nasal Parainfluen 2 PCR NOT DETECTED Nasal Parainfluen 3 PCR NOT DETECTED Nasal Parainfluen 4 PCR NOT DETECTED Nasal RSV (PCR) NOT DETECTED Nasal B.pertussis DNA PCR NOT DETECTED Nasal C.pneumoniae (PCR) NOT DETECTED Roger Human Metapneumo PCR NOT DETECTED Nasal M.pneumoniae (PCR) NOT DETECTED Nasal SARS-CoV-2 (PCR) NOT DETECTED PD MEDICAL DECISION MAKING - ED course ED course: 70-year-old man with extensive cardiac history presents with shortness of breath and left arm twinging 4 times over the past Week, most recent 3 to 4 days ago. The patient does not have recent prior cardiac lab work or EKG. His EKG today is showing an incomplete left bundle and abnormal R wave progression on precordial's that is new from previous. It appears that he has had a pacemaker placed since prior EKG in 2019. High-sensitivity troponin elevated at 35. 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 Carvalho. discussed with Dr. Carvalho who recommended transfer for admission to hospital with cardiology capabilities. 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 Gonsalves at [facility]. d/w Dr. Perez, hospitalist accepting. Patient decided he does not want to be transferred and would like to go home. He has capacity to refuse care and so we will sign out AMA. patient understands risks of and disability if he leaves without complete workup. Departure - Departure Disposition: 07 Against Medical Advice Clinical Impression: NSTEMI (non-ST elevated myocardial infarction), CHF exacerbation, Cirrhosis Discharge Date/Time: 02/28/21 19:55
[2021-02-28] MEDS ORDERED: ASPIRIN 325 MG TABLET PO STA (17:39)
[2021-02-28 18:00] VITALS: BP 119/73
[2021-02-28 18:43] LABS: B. PARAPERTUSSIS- RESP PCR PAN NOT DETECTED; B. PERTUSSIS- RESP PCR PANEL NOT DETECTED; C. PNEUMONIAE- RESP PCR PANEL NOT DETECTED; CORONAVIRUS 229E-RESP PCR NOT DETECTED; CORONAVIRUS HKU1-RESP PCR NOT DETECTED; CORONAVIRUS NL63-RESP PCR NOT DETECTED; CORONAVIRUS OC43-RESP PCR NOT DETECTED; HUMAN METAPNEUMOVIRUS NOT DETECTED; INFLUENZA A- RESP PCR PANEL NOT DETECTED; INFLUENZA B - RESP PCR PANEL NOT DETECTED; M. PNEUMONIAE- RESP PCR PANEL NOT DETECTED; PARAINFLUENZA VIRUS 1 NOT DETECTED; PARAINFLUENZA VIRUS 2 NOT DETECTED; PARAINFLUENZA VIRUS 3 NOT DETECTED; PARAINFLUENZA VIRUS 4 NOT DETECTED; RHINOVIRUS/ENTEROVIRUS NOT DETECTED; RSV- RESP PCR PANEL NOT DETECTED; SARS-CoV-2 -RESP PCR PANEL NOT DETECTED
== END 2021-02-28 19:55 | disposition left against medical advice (07) ==
LOC: ED 12:36
DX: I21.4 Non-ST elevation (NSTEMI) myocardial infarction (principal); I11.0 Hypertensive heart disease with heart failure; I50.9 Heart failure, unspecified; I44.7 Left bundle-branch block, unspecified; K74.60 Unspecified cirrhosis of liver; Z20.822 Contact with and (suspected) exposure to COVID-19; I25.10 Atherosclerotic heart disease of native coronary artery without angina pectoris; Z95.1 Presence of aortocoronary bypass graft; I48.91 Unspecified atrial fibrillation; Z79.01 Long term (current) use of anticoagulants; Z79.82 Long term (current) use of aspirin; Z95.0 Presence of cardiac pacemaker; E11.42 Type 2 diabetes mellitus with diabetic polyneuropathy; Z79.4 Long term (current) use of insulin; Z87.891 Personal history of nicotine dependence; Z53.29 Procedure and treatment not carried out because of patient's decision for other reasons
CPT/HCPCS: 36415; 71045; 80053; 82803; 83690; 83880; 84484; 85025; 85610; 85730; 87631; 93005; 96374; 99284; A9270; 0202U

== ENCOUNTER 2021-03-01 10:44 | Emergency (ER) | payer MEDICARE, OTHER ==
--- NOTE | 2021-03-01 11:04 | ED Physician Documentation ---
PD HPI CHEST PAIN - Stated complaint Stated Complaint: CHEST PX - History obtained from History obtained from: Patient, Family - Additional information Additional information: 70-year-old gentleman was having episodic left arm pain and was seen her left last night for same. He has a history of coronary disease, atrial fibrillation on anticoagulation, type 2 diabetes, CHF, and carotid disease. His work-up last night showed evidence of CHF with a BNP of 425 and concern for ischemic issues with a troponin of 35.7. The physician last night had made arrangements for him to go to [facility], but he subsequently signed out AMA. He returns today quite belligerent, stating that he has had no further chest pain, he is disrespectful to myself and the staff even before entering the room. He has had no further chest pain. Review of Systems Unable to obtain: Uncooperative PD PAST MEDICAL HISTORY - Past Medical History Cardiovascular: Congestive heart failure, Hypertension, High cholesterol, Coronary artery disease, Angina, [place], Atrial flutter Respiratory: COPD, Shortness of breath, Sleep apnea, CPAP use Neuro: TIA, Peripheral neuropathy, Tremors Endocrine/Autoimmune: Type 2 diabetes GI: GERD, GI bleed, Ulcers : Benign prostate hypertrophy, Renal insuffiency, Nocturia, Frequency HEENT: Chronic vision loss, Chronic sinusitis, Macular degeneration, Chronic hearing loss Psych: Depression, Anxiety Musculoskeletal: Osteoarthritis, Fatigue, Chronic back pain Derm: None - Past Surgical History Past Surgical History: Yes General: Cholecystectomy, EGD Ortho: Arthroscopic surgery, Spine surgery Cardiovascular: CABG, Coronary stent, Pacemaker, AICD - Present Medications Home Medications: Ambulatory Orders Medication Instructions Recorded Confirmed Apixaban [Eliquis] 5 mg PO BID 03/03/15 10/06/20 Aspirin [Aspir 81] 81 mg PO DAILY 03/03/15 10/06/20 Esomeprazole Magnesium [Nexium] 40 mg PO QDAC 03/03/15 10/06/20 Spironolactone 50 mg PO DAILY 03/03/15 10/06/20 Insulin Lispro Protamin/Lispro 70 units SUBQ QDBREAKFAST 01/19/16 04/04/19 [Humalog Mix 75-25 Vial] Insulin Lispro Protamin/Lispro 50 units SUBQ QDDINNER 04/04/19 04/04/19 [Humalog Mix 75-25 Vial] Midodrine [ProAmatine] 2.5 mg PO BID 04/04/19 10/06/20 Lidocaine Patch 5% [Lidoderm Patch] 1 patch TOP DAILY PRN #10 patch 09/09/20 Oxycodone HCl/Acetaminophen 1 - 2 each PO Q6H PRN #14 tablet 09/09/20 10/06/20 [Percocet 5-325 mg Tablet] Donepezil HCl [Aricept] 10 mg PO HS 10/06/20 10/06/20 Ezetimibe [Zetia] 10 mg PO DAILY 10/06/20 10/06/20 Lisinopril [Prinivil] 10 mg PO DAILY 10/06/20 10/06/20 Memantine HCl [Namenda] 10 mg PO BID 10/06/20 10/06/20 Rosuvastatin Calcium [Crestor] 5 mg PO HS 10/06/20 10/06/20 Sertraline HCl [Zoloft] 100 mg PO DAILY 10/06/20 10/06/20 Torsemide 20 mg PO DAILY 10/06/20 10/06/20 carvediloL [Coreg] 3.125 mg PO BID 10/06/20 10/06/20 oxyCODONE [Roxicodone] 1 tab PO Q4H PRN #20 tablet 10/07/20 - Allergies Allergies/Adverse Reactions: Allergies Allergy/AdvReac Type Severity Reaction Status Date / Time No Known Drug Allergies Allergy Verified 03/01/21 11:01 - Social History Does the pt smoke?: No Smoking Status: Former smoker Does the pt drink ETOH?: No Does the pt have substance abuse?: No - Immunizations Immunizations are current?: Yes - POLST Patient has POLST: No POLST Status: DNR PD ED PE NORMAL - Vitals Vital signs reviewed: Yes - General General: Alert and oriented X 3, No acute distress - HEENT HEENT: PERRL, EOMI - Respiratory Respiratory: No respiratory distress - Abdomen Abdomen: Non tender - Derm Derm: Normal color, Warm and dry - Neuro Neuro: Alert and oriented X 3, Normal speech Results - Vitals Vitals: Vital Signs - 24 hr 03/01/21 03/01/21 03/01/21 10:45 11:25 12:01 Temperature 37.2 C Heart Rate 86 77 73 Respiratory 20 24 24 Rate Blood Pressure 148/85 H 159/91 H 122/83 H O2 Saturation 100 98 98 03/01/21 12:30 Temperature Heart Rate 70 Respiratory 21 Rate Blood Pressure 121/67 O2 Saturation 98 Oxygen O2 Source Room air - EKG (time done) 1051 Rate: Rate (enter#) (61) Rhythm: Atrial fibrillation Intervals: Other (LAFB) Ischemia: Non specific changes Compare to prior EKG: Unchanged from prior EKG Computer interpretation: Agree with computer - Labs Labs: Laboratory Tests 03/01/21 03/01/21 03/01/21 11:10 11:10 11:10 WBC 7.4 RBC 4.15 L Hgb 10.9 L Hct 34.6 L MCV 83.4 MCH 26.3 L MCHC 31.5 L RDW 17.8 H Plt Count 117 L MPV 10.3 Neut # (Auto) 5.4 Lymph # (Auto) 1.0 L [place] # (Auto) 0.5 Eos # (Auto) 0.4 Baso # (Auto) 0.1 Absolute Nucleated RBC 0.00 Nucleated RBC % 0.0 Sodium 140 Potassium 3.3 L Chloride 105 Carbon Dioxide 25 Anion Gap 10.0 BUN 16 Creatinine 0.9 Estimated GFR (MDRD) 83 L Glucose 255 H Calcium 8.8 Total Bilirubin 1.2 H AST 77 H ALT 55 Alkaline Phosphatase 393 H Ammonia Troponin I High Sens 35.0 H* B-Natriuretic Peptide Total Protein 7.4 Albumin 3.2 Globulin 4.2 Albumin/Globulin Ratio 0.8 L Lipase 34 Ethyl Alcohol 5.9 03/01/21 03/01/21 11:10 11:21 WBC RBC Hgb Hct MCV MCH MCHC RDW Plt Count MPV Neut # (Auto) Lymph # (Auto) [place] # (Auto) Eos # (Auto) Baso # (Auto) Absolute Nucleated RBC Nucleated RBC % Sodium Potassium Chloride Carbon Dioxide Anion Gap BUN Creatinine Estimated GFR (MDRD) Glucose Calcium Total Bilirubin AST ALT Alkaline Phosphatase Ammonia 29.4 Troponin I High Sens B-Natriuretic Peptide 388 H Total Protein Albumin Globulin Albumin/Globulin Ratio Lipase Ethyl Alcohol PD MEDICAL DECISION MAKING - ED course ED course: 70-year-old gentleman presents after having signed out AGAINST MEDICAL ADVICE last night. On arrival he is belligerent and refusing many interventions. Did not even want a repeat EKG done. He refused exam. Stating "just get the ambulance to take me to [facility]." Tried to discuss with him the process of interhospital transfers and the requirements of [facility] for same. He seemed to have minimal understanding or patient's for the process and refused parts of the examination. We were able to calm him down the tobias and he was feeling calmer and more cooperative after I talked with his jumpbasting facing baster, Dr. Giron. She agreed with repeat labs and EKG and transfer to a facility capable of cardiology evaluation. Call was placed to [facility] at the patient's request. I spoke with Robby Gonsalves, cardiology at [facility] who will see the patient but def ers to the hospitalist there for primary acceptance. Accepted to [facility] by Dr. Calderon at 12:40 PM and cobras were completed. He is stable for transport. Departure - Departure Disposition: 02 Transfer Acute Care Hosp Clinical Impression: CAD (coronary artery disease) Qualifiers: Coronary Disease-Associated Artery/Lesion type: unspecified vessel or lesion type [place] vs. transplanted heart: [place] heart Associated angina: unspecified whether angina present Qualified Code(s): I25.10 - Atherosclerotic heart disease of [place] coronary artery without angina pectoris Chest pain Qualifiers: Chest pain type: other chest pain Qualified Code(s): R07.89 - Other chest pain Condition: Stable
[2021-03-01 11:15] LABS: BASOPHILS # (AUTO) 0.1 10^3/uL (0.0-0.1); BASOPHILS % (AUTO) 0.9 %; EOSINOPHILS # (AUTO) 0.4 10^3/uL (0.0-0.7); EOSINOPHILS % (AUTO) 4.7 %; HCT - HEMATOCRIT 34.6 % (42.0-52.0); HGB - HEMOGLOBIN 10.9 g/dL (14.0-18.0); LYMPHOCYTES % (AUTO) 13.9 %; MEAN CORPUSCULAR HEMOGLOBIN 26.3 pg (27.0-31.0); MEAN CORPUSCULAR HGB CONC 31.5 g/dL (32.0-36.0); MEAN CORPUSCULAR VOLUME 83.4 fL (80.0-94.0); MEAN PLATELET VOLUME 10.3 fL (7.4-11.4); MONOCYTES # (AUTO) 0.5 10^3/uL (0.0-1.0); MONOCYTES % (AUTO) 7.2 %; NEUTROPHILS # (AUTO) 5.4 10^3/uL (1.5-6.6); NEUTROPHILS % (AUTO) 72.9 %; PLT - PLATELET COUNT 117 10^3/uL (130-450); RED BLOOD COUNT 4.15 10^6/uL (4.70-6.10); RED CELL DISTRIBUTION WIDTH 17.8 % (12.0-15.0); WHITE BLOOD COUNT 7.4 x10^3/uL (4.8-10.8)
[2021-03-01] MEDS ORDERED: NITROGLYCERIN 2% PASTE TOP STA (11:16)
[2021-03-01] MEDS ORDERED: ASPIRIN CHEW 81 MG TABLET PO STA (11:32)
[2021-03-01 11:36] LABS: ALBUMIN 3.2 g/dL (3.2-5.5); ALBUMIN/GLOBULIN RATIO 0.8 (1.0-2.2); BILIRUBIN,TOTAL 1.2 mg/dL (0.2-1.0); CALCIUM 8.8 mg/dL (8.5-10.3); CREATININE 0.9 mg/dL (0.6-1.2); ETOH - ETHANOL 5.9 mg/dL; POTASSIUM 3.3 mmol/L (3.5-5.0); TOTAL PROTEIN 7.4 g/dL (6.7-8.2)
[2021-03-01 15:41] VITALS: BP 134/98
== END 2021-03-01 16:29 | disposition short-term general hospital (02) ==
LOC: ED 10:44
DX: R07.89 Other chest pain (principal); I25.10 Atherosclerotic heart disease of native coronary artery without angina pectoris; I48.91 Unspecified atrial fibrillation; I48.92 Unspecified atrial flutter; I11.0 Hypertensive heart disease with heart failure; I50.9 Heart failure, unspecified; E11.9 Type 2 diabetes mellitus without complications; E78.00 Pure hypercholesterolemia, unspecified; J44.9 Chronic obstructive pulmonary disease, unspecified; G47.30 Sleep apnea, unspecified; E11.42 Type 2 diabetes mellitus with diabetic polyneuropathy; N28.9 Disorder of kidney and ureter, unspecified; K21.9 Gastro-esophageal reflux disease without esophagitis; N40.1 Benign prostatic hyperplasia with lower urinary tract symptoms; R35.0 Frequency of micturition; R35.1 Nocturia; H35.30 Unspecified macular degeneration; H91.90 Unspecified hearing loss, unspecified ear; F32.9 Major depressive disorder, single episode, unspecified; F41.9 Anxiety disorder, unspecified; Z95.5 Presence of coronary angioplasty implant and graft; Z86.73 Personal history of transient ischemic attack (TIA), and cerebral infarction without residual deficits; Z87.11 Personal history of peptic ulcer disease; Z95.810 Presence of automatic (implantable) cardiac defibrillator; Z66 Do not resuscitate; Z79.01 Long term (current) use of anticoagulants; Z79.82 Long term (current) use of aspirin; Z79.4 Long term (current) use of insulin; Z79.891 Long term (current) use of opiate analgesic; Z79.899 Other long term (current) drug therapy; Z87.891 Personal history of nicotine dependence
CPT/HCPCS: 36415; 80053; 82140; 83690; 83880; 84484; 85025; 93005; 99281; 99285; A9270; G0480; 80320

== ENCOUNTER 2021-03-01 16:23 | Outpatient (CLI) | payer MEDICARE, OTHER | END 2021-03-01 16:24 | disposition short-term general hospital (02) | LOC: EMS 16:23 | PROVIDERS: ATTEND Emergency Medicine | DX: R07.9 Chest pain, unspecified (principal); I25.10 Atherosclerotic heart disease of native coronary artery without angina pectoris | CPT/HCPCS: A0425; A0428 ==

== ENCOUNTER 2021-08-19 12:47 | Emergency (ER) | payer MEDICARE, OTHER ==
[2021-08-19 15:46] LABS: BASOPHILS # (AUTO) 0.1 10^3/uL (0.0-0.1); EOSINOPHILS # (AUTO) 0.4 10^3/uL (0.0-0.7); EOSINOPHILS % (AUTO) 5.7 %; HCT - HEMATOCRIT 33.4 % (42.0-52.0); HGB - HEMOGLOBIN 9.8 g/dL (14.0-18.0); LYMPHOCYTES # (AUTO) 0.8 10^3/uL (1.5-3.5); LYMPHOCYTES % (AUTO) 10.7 %; MEAN CORPUSCULAR HEMOGLOBIN 24.9 pg (27.0-31.0); MEAN CORPUSCULAR HGB CONC 29.3 g/dL (32.0-36.0); MEAN CORPUSCULAR VOLUME 84.8 fL (80.0-94.0); MEAN PLATELET VOLUME 9.8 fL (7.4-11.4); MONOCYTES # (AUTO) 0.5 10^3/uL (0.0-1.0); MONOCYTES % (AUTO) 6.8 %; NEUTROPHILS # (AUTO) 5.3 10^3/uL (1.5-6.6); NEUTROPHILS % (AUTO) 75.4 %; PLT - PLATELET COUNT 118 10^3/uL (130-450); RED BLOOD COUNT 3.94 10^6/uL (4.70-6.10); RED CELL DISTRIBUTION WIDTH 18.3 % (12.0-15.0)
[2021-08-19 15:54] LABS: INR 1.3 (0.8-1.2); PT - PROTHROMBIN TIME 13.9 secs (9.9-12.6)
[2021-08-19 16:00] LABS: ALBUMIN 3.2 g/dL (3.2-5.5); ALBUMIN/GLOBULIN RATIO 0.7 (1.0-2.2); BILIRUBIN,TOTAL 1.4 mg/dL (0.2-1.0); CALCIUM 8.8 mg/dL (8.5-10.3); CREATININE 0.8 mg/dL (0.6-1.2); POTASSIUM 4.3 mmol/L (3.5-5.0); TOTAL PROTEIN 7.6 g/dL (6.7-8.2)
[2021-08-19] MEDS ORDERED: ALBUMIN 25% 12.5 GM/50 ML VIAL IV STA ×3 (16:52→16:53)
--- NOTE | 2021-08-19 16:52 | ED Physician Documentation ---
History of Present Illness - Stated complaint Stated Complaint: SOA - Chief complaint Chief Complaint: Abd Pain - History obtained from History obtained from: Patient - History of Present Illness Timing: How many weeks ago (1) - Additonal information Additional information: 70-year-old male with a history of alcoholic cirrhosis who has ascites and has had has not have his ascites drained has an appointment to have his ascites drained in 3 weeks. He has developed enough return of his ascites that he is having some difficulty with shortness of breath. He has been asked by his doctor to come to the emergency department for paracentesis. The patient's last paracentesis was 4 L. The patient states that over the past 3 days he has stopped taking his medications and he was on some Eliquis. Review of Systems Constitutional: denies: Fever Eyes: denies: Decreased vision, Photophobia Ears: denies: Ear pain Nose: denies: Congestion Throat: denies: Sore throat Cardiac: reports: Pedal edema (Improved from usual). denies: Chest pain / pressure, Palpitations Respiratory: reports: Dyspnea. denies: Cough, Wheezing GI: reports: Abdominal Pain, Abdominal Swelling, Nausea, Vomiting : denies: Dysuria, Frequency PD PAST MEDICAL HISTORY - Past Medical History Cardiovascular: Congestive heart failure, Hypertension, High cholesterol, Coronary artery disease, Angina, [place], Atrial flutter Respiratory: COPD, Shortness of breath, Sleep apnea, CPAP use Neuro: TIA, Peripheral neuropathy, Tremors Endocrine/Autoimmune: Type 2 diabetes GI: GERD, GI bleed, Ulcers : Benign prostate hypertrophy, Renal insuffiency, Nocturia, Frequency HEENT: Chronic vision loss, Chronic sinusitis, Macular degeneration, Chronic hearing loss Psych: Depression, Anxiety Musculoskeletal: Osteoarthritis, Fatigue, Chronic back pain Derm: None - Past Surgical History Past Surgical History: Yes General: Cholecystectomy, EGD Ortho: Arthroscopic surgery, Spine surgery Cardiovascular: CABG, Coronary stent, Pacemaker, AICD - Present Medications Home Medications: Ambulatory Orders Medication Instructions Recorded Confirmed Apixaban [Eliquis] 5 mg PO BID 03/03/15 10/06/20 Aspirin [Aspir 81] 81 mg PO DAILY 03/03/15 10/06/20 Esomeprazole Magnesium [Nexium] 40 mg PO QDAC 03/03/15 10/06/20 Spironolactone 50 mg PO DAILY 03/03/15 10/06/20 Insulin Lispro Protamin/Lispro 70 units SUBQ QDBREAKFAST 01/19/16 04/04/19 [Humalog Mix 75-25 Vial] Insulin Lispro Protamin/Lispro 50 units SUBQ QDDINNER 04/04/19 04/04/19 [Humalog Mix 75-25 Vial] Midodrine [ProAmatine] 2.5 mg PO BID 04/04/19 10/06/20 Lidocaine Patch 5% [Lidoderm Patch] 1 patch TOP DAILY PRN #10 patch 09/09/20 Oxycodone HCl/Acetaminophen 1 - 2 each PO Q6H PRN #14 tablet 09/09/20 10/06/20 [Percocet 5-325 mg Tablet] Donepezil HCl [Aricept] 10 mg PO HS 10/06/20 10/06/20 Ezetimibe [Zetia] 10 mg PO DAILY 10/06/20 10/06/20 Memantine HCl [Namenda] 10 mg PO BID 10/06/20 10/06/20 Rosuvastatin Calcium [Crestor] 5 mg PO HS 10/06/20 10/06/20 Sertraline HCl [Zoloft] 100 mg PO DAILY 10/06/20 10/06/20 Torsemide 20 mg PO DAILY 10/06/20 10/06/20 carvediloL [Coreg] 3.125 mg PO BID 10/06/20 10/06/20 lisinopriL [Prinivil] 10 mg PO DAILY 10/06/20 10/06/20 oxyCODONE [Roxicodone] 1 tab PO Q4H PRN #20 tablet 10/07/20 - Allergies Allergies/Adverse Reactions: Allergies Allergy/AdvReac Type Severity Reaction Status Date / Time No Known Drug Allergies Allergy Verified 08/19/21 13:30 - Social History Does the pt smoke?: No Smoking Status: Never smoker Does the pt drink ETOH?: No Does the pt have substance abuse?: No - Immunizations Immunizations are current?: Yes - POLST Patient has POLST: No POLST Status: DNR PD ED PE NORMAL - Vitals Vital signs reviewed: Yes (Normal afebrile) - General General: Alert and oriented X 3, Well developed/nourished, Other (Mildly tachypneic at rest) - HEENT HEENT: Atraumatic, PERRL, EOMI - Neck Neck: Supple, no meningeal sign, No bony TTP - Cardiac Cardiac: RRR, No murmur - Respiratory Respiratory: No respiratory distress, Clear bilaterally - Abdomen Abdomen: Normal bowel sounds, Soft, Other (There is tense ascites without specific point tenderness. 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, No motor deficit, No sensory deficit, Normal speech Eye Opening: Spontaneous Motor: Obeys Commands Verbal: Oriented GCS Score: 15 - Psych Psych: Normal mood, Normal affect Results - Vitals Vitals: Vital Signs - 24 hr 08/19/21 08/19/21 08/19/21 13:24 15:44 18:05 Temperature 36.5 C Heart Rate 68 79 Respiratory 20 19 18 Rate Blood Pressure 121/62 128/66 111/59 L O2 Saturation 98 100 98 Oxygen O2 Source Room air - Labs Labs: Laboratory Tests 08/19/21 08/19/21 08/19/21 15:32 15:32 15:32 WBC 7.0 RBC 3.94 L Hgb 9.8 L Hct 33.4 L MCV 84.8 MCH 24.9 L MCHC 29.3 L RDW 18.3 H Plt Count 118 L MPV 9.8 Neut # (Auto) 5.3 Lymph # (Auto) 0.8 L [place] # (Auto) 0.5 Eos # (Auto) 0.4 Baso # (Auto) 0.1 Absolute Nucleated RBC 0.00 Nucleated RBC % 0.0 PT 13.9 H INR 1.3 H Sodium 136 Potassium 4.3 Chloride 104 Carbon Dioxide 23 Anion Gap 9.0 BUN 14 Creatinine 0.8 Estimated GFR (MDRD) 95 Glucose 193 H Calcium 8.8 Total Bilirubin 1.4 H AST 47 H ALT 36 Alkaline Phosphatase 296 H Ammonia Total Protein 7.6 Albumin 3.2 Globulin 4.4 H Albumin/Globulin Ratio 0.7 L Lipase 29 Fluid Source Fluid Color Fluid Clarity Fluid WBC Fluid RBC 08/19/21 08/19/21 15:32 17:13 WBC RBC Hgb Hct MCV MCH MCHC RDW Plt Count MPV Neut # (Auto) Lymph # (Auto) [place] # (Auto) Eos # (Auto) Baso # (Auto) Absolute Nucleated RBC Nucleated RBC % PT INR Sodium Potassium Chloride Carbon Dioxide Anion Gap BUN Creatinine Estimated GFR (MDRD) Glucose Calcium Total Bilirubin AST ALT Alkaline Phosphatase Ammonia 21.7 Total Protein Albumin Globulin Albumin/Globulin Ratio Lipase Fluid Source PERITONEAL Fluid Color YELLOW Fluid Clarity HAZY Fluid WBC 205 Fluid RBC < 3000 Procedures - Paracentesis Preparation: Consent obtained, Ultrasound guidance, Sterile prep and drape, Local anesthesia (1% lidocaine) Location: LLQ Technique: Catheter over needle Fluid: Clear, Sent for gram stain, Sent for culture, Volume - enter cc (7000) Aftercare: No complications, Patient tolerated well, Dressing applied, Other (albumin administered) PD MEDICAL DECISION MAKING - ED course Complexity details: reviewed old records, reviewed results, re-evaluated patient, considered differential, d/w patient ED course: 70-year-old male usually getting his care at [facility] in [place] has a history of has ascites and has had to have his ascites drained. He has stopped drinking 2 years ago. He indicates that he last had his paracentesis done in June at [facility] and does not have an appointment until September 10. He is having shortness of breath he is quite uncomfortable with the amount of fluid he has. He has not had fever.Here in the emergency department he has consented for therapeutic paracentesis and a large-volume paracentesis is done with over 7000 mL of fluid extracted. Patient tolerates this very well and has improved ease of breathing. He is administered albumin 37-1/2 gm intravenously. Departure - Departure Disposition: Home, Self Care Clinical Impression: Ascites of liver Condition: Stable Instructions: Paracentesis, ED Ascites Follow-Up: JANIE PEDERSON [Primary Care Provider] - Comments: Maxime, today we were able to take off 7000 mL of ascites fluid. I am certain you will feel better and have an ease of breathing today. Do not overdo it. There are significant volume shifts of fluid involved with ascites removal and fainting episodes can occur if you are too active.
[2021-08-19 18:55] LABS: CC,BF RBC < 3000 /mm^3; CC,BF WBC 205 /mm^3
[2021-08-19 18:56] LABS: BF CLARITY HAZY; BF COLOR YELLOW; BF SOURCE PERITONEAL
[2021-08-19 20:06] VITALS: BP 113/67
== END 2021-08-19 20:14 | disposition home or self-care (01) ==
LOC: ED 12:47
DX: K70.31 Alcoholic cirrhosis of liver with ascites (principal); Z66 Do not resuscitate; I11.0 Hypertensive heart disease with heart failure; I50.9 Heart failure, unspecified; I25.119 Atherosclerotic heart disease of native coronary artery with unspecified angina pectoris; I25.2 Old myocardial infarction; I48.92 Unspecified atrial flutter; J44.9 Chronic obstructive pulmonary disease, unspecified; G47.30 Sleep apnea, unspecified; E11.42 Type 2 diabetes mellitus with diabetic polyneuropathy; Z86.73 Personal history of transient ischemic attack (TIA), and cerebral infarction without residual deficits; K21.9 Gastro-esophageal reflux disease without esophagitis; Z87.11 Personal history of peptic ulcer disease; N40.1 Benign prostatic hyperplasia with lower urinary tract symptoms; R35.0 Frequency of micturition; R35.1 Nocturia; H54.7 Unspecified visual loss; H91.90 Unspecified hearing loss, unspecified ear; H35.30 Unspecified macular degeneration; F32.9 Major depressive disorder, single episode, unspecified; F41.9 Anxiety disorder, unspecified; Z79.899 Other long term (current) drug therapy; G89.29 Other chronic pain; M54.9 Dorsalgia, unspecified; R53.83 Other fatigue; Z95.5 Presence of coronary angioplasty implant and graft; Z79.01 Long term (current) use of anticoagulants; Z79.82 Long term (current) use of aspirin; Z79.4 Long term (current) use of insulin; Z95.810 Presence of automatic (implantable) cardiac defibrillator
CPT/HCPCS: 36415; 49082; 80053; 82140; 83690; 85025; 85610; 87070; 87205; 89051; 96365; 96366; 96368; 99284; 99285; P9047

== ENCOUNTER 2021-10-19 04:08 | Observation (INO) | payer MEDICARE, OTHER ==
--- NOTE | 2021-10-19 04:20 | ED Physician Documentation ---
PD HPI ABD PAIN - Stated complaint Stated Complaint: FLUID IN ABD - History obtained from History obtained from: Patient - History of Present Illness Timing - onset: How many days ago (has had increased abd pressure and dyspnea the past 4 days or so. Has had this several times in the past with paracentesis done about once every month. Recent ones done in [facility]. He has been trying along with his GI at [facility] to get outpt paracentesis scheduled. Has appt Nov 10.) Timing - duration: Days (much more uncomfortably tight) Timing - details: Gradual onset, Still present Quality: Cramping, Aching, Fullness/distended Location: All over / everywhere Improved by: BM (he has noted black color to stools the past 4 days as well) Worsened by: Eating Associated symptoms: Nausea, Melena (for 4 days), Loss of appetite. No: Fever, Vomiting, Constipation, Dysuria Similar symptoms before: Diagnosis (liver failure with ascites.) Review of Systems Constitutional: reports: Fatigue. denies: Fever, Chills, Myalgias Nose: denies: Rhinorrhea / runny nose, Congestion Throat: denies: Sore throat Cardiac: reports: Pedal edema (bilateral mild). denies: Chest pain / pressure, Palpitations, Calf pain Respiratory: reports: Dyspnea, Wheezing. denies: Cough, Hemoptysis GI: reports: Abdominal Pain, Abdominal Swelling, Nausea, Bloody / black stool. denies: Vomiting, Diarrhea, Hematemesis Musculoskeletal: reports: Extremity swelling Neurologic: reports: Generalized weakness. denies: Near syncope PD PAST MEDICAL HISTORY - Past Medical History Cardiovascular: Congestive heart failure, Hypertension, High cholesterol, Coronary artery disease, Angina, [place], Atrial flutter (he states he held his Eliquis the past 3 days in anticipation of this procedure. ) Respiratory: COPD, Shortness of breath, Sleep apnea, CPAP use Neuro: TIA, Peripheral neuropathy, Tremors Endocrine/Autoimmune: Type 2 diabetes GI: GERD, GI bleed, Ulcers (without varices on most recent EGD year ago. His GI is Dr Phillips at [facility]. ) : Benign prostate hypertrophy, Renal insuffiency, Nocturia, Frequency HEENT: Chronic vision loss, Chronic sinusitis, Macular degeneration, Chronic hearing loss Psych: Depression, Anxiety Musculoskeletal: Osteoarthritis, Fatigue, Chronic back pain Derm: None - Past Surgical History Past Surgical History: Yes General: Cholecystectomy, EGD Ortho: Arthroscopic surgery, Spine surgery Cardiovascular: CABG, Coronary stent, Pacemaker, AICD - Present Medications Home Medications: Ambulatory Orders Medication Instructions Recorded Confirmed Apixaban [Eliquis] 5 mg PO BID 03/03/15 10/06/20 Aspirin [Aspir 81] 81 mg PO DAILY 03/03/15 10/06/20 Esomeprazole Magnesium [Nexium] 40 mg PO QDAC 03/03/15 10/06/20 Spironolactone 50 mg PO DAILY 03/03/15 10/06/20 Insulin Lispro Protamin/Lispro 70 units SUBQ QDBREAKFAST 01/19/16 04/04/19 [Humalog Mix 75-25 Vial] Insulin Lispro Protamin/Lispro 50 units SUBQ QDDINNER 04/04/19 04/04/19 [Humalog Mix 75-25 Vial] Midodrine [ProAmatine] 2.5 mg PO BID 04/04/19 10/06/20 Lidocaine Patch 5% [Lidoderm Patch] 1 patch TOP DAILY PRN #10 patch 09/09/20 Oxycodone HCl/Acetaminophen 1 - 2 each PO Q6H PRN #14 tablet 09/09/20 10/06/20 [Percocet 5-325 mg Tablet] Donepezil HCl [Aricept] 10 mg PO HS 10/06/20 10/06/20 Ezetimibe [Zetia] 10 mg PO DAILY 10/06/20 10/06/20 Memantine HCl [Namenda] 10 mg PO BID 10/06/20 10/06/20 Rosuvastatin Calcium [Crestor] 5 mg PO HS 10/06/20 10/06/20 Sertraline HCl [Zoloft] 100 mg PO DAILY 10/06/20 10/06/20 Torsemide 20 mg PO DAILY 10/06/20 10/06/20 carvediloL [Coreg] 3.125 mg PO BID 10/06/20 10/06/20 lisinopriL [Prinivil] 10 mg PO DAILY 10/06/20 10/06/20 oxyCODONE [Roxicodone] 1 tab PO Q4H PRN #20 tablet 10/07/20 - Allergies Allergies/Adverse Reactions: Allergies Allergy/AdvReac Type Severity Reaction Status Date / Time No Known Drug Allergies Allergy Verified 10/19/21 04:23 - Social History Does the pt smoke?: No Smoking Status: Never smoker Does the pt drink ETOH?: No Does the pt have substance abuse?: No - Immunizations Immunizations are current?: Yes - POLST Patient has POLST: No POLST Status: DNR PD ED PE NORMAL - Vitals Vital signs reviewed: Yes - General General: Alert and oriented X 3, Well developed/nourished, Other (seems moderate dyspnea coming into room, but improves once settled and rested on cart. ) - HEENT HEENT: Pharynx benign - Neck Neck: Supple, no meningeal sign, No adenopathy - Cardiac Cardiac: RRR, No murmur - Respiratory Respiratory: No: Clear bilaterally (no coarse sounds, but does have some exp wheezing diffusely.) - Abdomen Abdomen: Other (distended and tight abdomen with dullness to percussion. Bowel sounds diminished. Minimally tender diffusely. Liver enlarged to percussion. ) - Male Male : Deferred - Rectal Rectal: Other (soft black melenotic stool in vault. Nontender. ) - Back Back: No CVA TTP - Derm Derm: Normal color, Warm and dry - Extremities Extremities: No tenderness to palpate, Normal ROM s pain, No calf tenderness / cord, Other (1+ edema in both lower legs. ) - Neuro Neuro: Alert and oriented X 3, No motor deficit, Normal speech Results - Vitals Vitals: Vital Signs - 24 hr 10/19/21 10/19/21 10/19/21 04:19 04:57 05:34 Temperature 36.5 C Heart Rate 99 87 85 Respiratory 19 17 16 Rate Blood Pressure 121/69 122/82 H 110/66 O2 Saturation 96 97 100 10/19/21 10/19/21 10/19/21 06:12 06:25 06:45 Temperature Heart Rate 77 83 58 L Respiratory 17 17 14 Rate Blood Pressure 125/64 119/65 O2 Saturation 100 100 100 Oxygen O2 Source Room air - Labs Labs: Microbiology 10/19/21 04:52 Occult Blood - Final Stool - Soft Consistency Laboratory Tests 10/19/21 10/19/21 10/19/21 05:45 05:45 06:05 WBC 6.9 RBC 3.40 L Hgb 8.6 L Hct 27.9 L MCV 82.1 MCH 25.3 L MCHC 30.8 L RDW 17.7 H Plt Count 137 MPV 9.3 Neut # (Auto) 5.1 Lymph # (Auto) 1.0 L [place] # (Auto) 0.5 Eos # (Auto) 0.3 Baso # (Auto) 0.1 Absolute Nucleated RBC 0.00 Nucleated RBC % 0.0 Sodium 135 Potassium 3.4 L Chloride 97 L Carbon Dioxide 28 Anion Gap 10.0 BUN 14 Creatinine 0.9 Estimated GFR (MDRD) 83 L Glucose 238 H Calcium 8.5 Magnesium 2.0 Total Bilirubin 1.2 H AST 35 ALT 20 Alkaline Phosphatase 195 H Total Protein 7.1 Albumin 3.1 L Globulin 4.0 Albumin/Globulin Ratio 0.8 L Lipase 31 Fluid Source PERITONEAL Fluid Color YELLOW Fluid Clarity CLEAR Fluid WBC 181 Fluid RBC 2000 Fluid Neutrophils % 23 Fluid Lymphocytes % 19 Fluid Monocytes % 3 Fluid Macrophages % 55 Fld Mesothelial Cell % 0 Procedures - Paracentesis Preparation: Consent obtained, Ultrasound guidance, Sterile prep and drape, Local anesthesia Location: RLQ Technique: Z-tract, Catheter over needle Fluid: Clear, Sent for cell count, Sent for gram stain, Sent for culture, Volume - enter cc (5000) Aftercare: No complications, Patient tolerated well, Dressing applied PD MEDICAL DECISION MAKING - ED course Complexity details: re-evaluated patient (he is much more comfortable after the paracentesis. ), considered differential, d/w patient ED course: Patient is stable regarding vital signs. He is breathing is much improved after the paracentesis of 5 L. My concern is with new ulcer type GI bleeding with melena. No history of varices per patient. Would be good to verify that from his check services clerk Dr. Phillips at [facility]. If we can verify no varices, then local intervention might be possible if he needs a scope. Otherwise either type follow-up or close observation to watch for sequential hemoglobin blood tests and provide other treatment in addition to his Nexium. Departure - Departure Clinical Impression: Gastrointestinal hemorrhage with melena Dyspnea Qualifiers: Dyspnea type: dyspnea on exertion Qualified Code(s): R06.00 - Dyspnea, unspecified Abdominal ascites Qualifiers: Ascites type: due to alcoholic cirrhosis Qualified Code(s): K70.31 - Alcoholic cirrhosis of liver with ascites Liver failure Qualifiers: Liver failure chronicity: chronic Hepatic coma status: without hepatic coma Qualified Code(s): K72.10 - Chronic hepatic failure without coma Condition: Stable Record reviewed to determine appropriate education?: Yes
[2021-10-19] MEDS ORDERED: SODIUM CHLORIDE 0.9% 1,000 ML IV STA (04:32)
[2021-10-19] MEDS ORDERED: ALBUMIN 25% 12.5 GM/50 ML VIAL IV STA (04:34)
[2021-10-19] MEDS ORDERED: FAMOTIDINE 20 MG/2 ML VIAL IVP STA (04:34)
[2021-10-19 05:52] LABS: BASOPHILS # (AUTO) 0.1 10^3/uL (0.0-0.1); EOSINOPHILS # (AUTO) 0.3 10^3/uL (0.0-0.7); EOSINOPHILS % (AUTO) 3.9 %; HCT - HEMATOCRIT 27.9 % (42.0-52.0); HGB - HEMOGLOBIN 8.6 g/dL (14.0-18.0); LYMPHOCYTES % (AUTO) 13.8 %; MEAN CORPUSCULAR HEMOGLOBIN 25.3 pg (27.0-31.0); MEAN CORPUSCULAR HGB CONC 30.8 g/dL (32.0-36.0); MEAN CORPUSCULAR VOLUME 82.1 fL (80.0-94.0); MEAN PLATELET VOLUME 9.3 fL (7.4-11.4); MONOCYTES # (AUTO) 0.5 10^3/uL (0.0-1.0); MONOCYTES % (AUTO) 7.2 %; NEUTROPHILS # (AUTO) 5.1 10^3/uL (1.5-6.6); NEUTROPHILS % (AUTO) 73.8 %; PLT - PLATELET COUNT 137 10^3/uL (130-450); RED CELL DISTRIBUTION WIDTH 17.7 % (12.0-15.0); WHITE BLOOD COUNT 6.9 x10^3/uL (4.8-10.8)
[2021-10-19 06:06] LABS: CALCIUM 8.5 mg/dL (8.5-10.3); CREATININE 0.9 mg/dL (0.6-1.2); POTASSIUM 3.4 mmol/L (3.5-5.0)
[2021-10-19 06:46] LABS: CC,BF WBC 181 /mm^3
[2021-10-19 06:47] LABS: BF CLARITY CLEAR; BF SOURCE PERITONEAL; CC,BF RBC 2000 /mm^3
[2021-10-19 06:48] LABS: BF COLOR YELLOW
[2021-10-19 07:15] LABS: LYMPHOCYTES %,BODY FLUID 19 %; MACROPHAGES %,BODY FLUID 55 %; MESOTHELIAL %, BF 0 %; MONOCYTES %,BODY FLUID 3 %; NEUTROPHILS %, BF 23 %
[2021-10-19 07:46] LABS: ALBUMIN 3.1 g/dL (3.2-5.5); ALBUMIN/GLOBULIN RATIO 0.8 (1.0-2.2); BILIRUBIN,TOTAL 1.2 mg/dL (0.2-1.0); TOTAL PROTEIN 7.1 g/dL (6.7-8.2)
--- NOTE | 2021-10-19 08:10 | XRAY Report ---
PROCEDURE: Chest 1 View X-Ray INDICATIONS: chest pain TECHNIQUE: One view of the chest was acquired. COMPARISON: 02/28/2021 FINDINGS: Surgical changes and devices: Median sternotomy. Left-sided pacer. Lungs and pleura: No pleural effusions or pneumothorax. Moderate diffuse reticulonodular pulmonary o pacity. Mediastinum: Mediastinal contours appear normal. Heart size is enlarged. Bones and chest wall: No suspicious bony lesions. Overlying soft tissues appear unremarkable. IMPRESSION: Moderate edema versus atypical pneumonia. Reviewed by: Barbra Pham MD on 10/19/2021 8:09 AM [facility] Approved by: Barbra Pham MD on 10/19/2021 8:09 AM [facility] Station ID: [id number]
[2021-10-19 10:17] LABS: HCT - HEMATOCRIT 26.2 % (42.0-52.0); HGB - HEMOGLOBIN 8.1 g/dL (14.0-18.0)
[2021-10-19] MEDS ORDERED: ACETAMINOPHEN 325 MG TABLET PO PRN (14:16)
[2021-10-19] MEDS ORDERED: SODIUM CHLORIDE FLUSH 0.9% 10 ML SYRINGE IVP PRN (14:16)
[2021-10-19] MEDS ORDERED: ONDANSETRON ODT 4 MG TABLET TL PRN (14:16)
[2021-10-19] MEDS ORDERED: ONDANSETRON 4 MG/2 ML VIAL IVP PRN (14:16)
[2021-10-19 14:36] LABS: HCT - HEMATOCRIT 26.4 % (42.0-52.0); HGB - HEMOGLOBIN 8.3 g/dL (14.0-18.0)
[2021-10-19 14:42] LABS: INR 1.3 (0.8-1.2); PT - PROTHROMBIN TIME 14.9 secs (9.9-12.6)
[2021-10-19 14:44] LABS: CALCIUM 8.3 mg/dL (8.5-10.3); CREATININE 0.7 mg/dL (0.6-1.2); POTASSIUM 3.3 mmol/L (3.5-5.0)
[2021-10-19] MEDS: PANTOPRAZOLE 40 MG VIAL IVP SCH (15:31)
--- NOTE | 2021-10-19 15:49 | HISTORY & PHYSICAL EXAMINATION ---
Chief Complaint - Chief Complaint Chief Complaint: Need a paracentesis History of Present Illness - Admitted From Admitted From:: Home - History Obtained From Records Reviewed: Yes History obtained from: Patient, ER Physician, EMR - History of Present Illness HPI Comment/Other: This is a 71-year-old male with a past medical history significant for insulin- dependent diabetes mellitus, coronary artery disease status post stenting and CABG, atrial fibrillation on Eliquis with an ICD in place, alcoholic liver cirrhosis who presents today requesting paracentesis. He states he normally gets appearances every 3 weeks and will get that done here at our facility or at [facility] in [place]. His abdomen was becoming more distended and so he came to the emergency department overnight. He also noted that he developed melena and dark bloody stools over the past 3 to 4 days. He stopped the Eliquis about 3 days ago due to the bleeding. He continues to take aspirin 81 mg daily. He denies any other NSAID use including ibuprofen, Advil. He did have an endoscopy about 2 years ago which revealed angiodysplasia and this was felt to be the source of his bleeding. He also tells me he has had a history of gastric ulcers in the past. He dinies fevers, chills, chest pain, dyspnea or any other source of bleeding. In the emergency department, he was noted to be anemic with a hemoglobin of 8.6. This decreased to 8.1 on recheck. He also underwent a paracentesis in the emergency department. Given the above findings, medicine was consulted for admission. I discussed goals of care with the patient and he would like to be a DNR. History - Past Medical History Cardiovascular: reports: Congestive heart failure, Hypertension, High cholesterol, Coronary artery disease, Angina, [place], Atrial fibrillation Respiratory: reports: COPD, Shortness of breath, Sleep apnea, CPAP use Neuro: reports: TIA, Peripheral neuropathy, Tremors Endocrine/Autoimmune: reports: Type 2 diabetes GI: reports: GERD, GI bleed, Ulcers (without varices on most recent EGD year ago. His GI is Dr Phillips at [facility]. ) : reports: Benign prostate hypertrophy, Renal insuffiency, Nocturia, Frequency HEENT: reports: Chronic vision loss, Chronic sinusitis, Macular degeneration, Chronic hearing loss Psych: reports: Depression, Anxiety Musculoskeletal: reports: Osteoarthritis, Fatigue, Chronic back pain Derm: reports: None MRSA Hx?: No - Past Surgical History General: reports: Cholecystectomy, EGD Ortho: reports: Arthroscopic surgery, Spine surgery Cardiovascular: reports: CABG, Coronary stent, Pacemaker, AICD, Cardiac catheterization - Family & Social History Family History: Mother: , Father: Family History Comment/Other: He reports no significant family history and denies a history of heart disease or cancer. Living arrangement: At home Living Situation: Alone Social History Notes: He lives at home alone. His has dementia and is at a memory care unit. He pretty smoked a pack a day but quit in the late . He also drinks alcohol on a daily basis but quit 2 years ago. - POLST Patient has POLST: No POLST Status: DNR Meds/Allgy - Home Medications Home Medications: Ambulatory Orders Medication Instructions Recorded Confirmed Apixaban [Eliquis] 5 mg PO BID 03/03/15 10/06/20 Aspirin [Aspir 81] 81 mg PO DAILY 03/03/15 10/06/20 Esomeprazole Magnesium [Nexium] 40 mg PO QDAC 03/03/15 10/06/20 Spironolactone 50 mg PO DAILY 03/03/15 10/06/20 Insulin Lispro Protamin/Lispro 70 units SUBQ QDBREAKFAST 01/19/16 04/04/19 [Humalog Mix 75-25 Vial] Insulin Lispro Protamin/Lispro 50 units SUBQ QDDINNER 04/04/19 04/04/19 [Humalog Mix 75-25 Vial] Midodrine [ProAmatine] 2.5 mg PO BID 04/04/19 10/06/20 Lidocaine Patch 5% [Lidoderm Patch] 1 patch TOP DAILY PRN #10 patch 09/09/20 Oxycodone HCl/Acetaminophen 1 - 2 each PO Q6H PRN #14 tablet 09/09/20 10/06/20 [Percocet 5-325 mg Tablet] Donepezil HCl [Aricept] 10 mg PO HS 10/06/20 10/06/20 Ezetimibe [Zetia] 10 mg PO DAILY 10/06/20 10/06/20 Memantine HCl [Namenda] 10 mg PO BID 10/06/20 10/06/20 Rosuvastatin Calcium [Crestor] 5 mg PO HS 10/06/20 10/06/20 Sertraline HCl [Zoloft] 100 mg PO DAILY 10/06/20 10/06/20 Torsemide 20 mg PO DAILY 10/06/20 10/06/20 carvediloL [Coreg] 3.125 mg PO BID 10/06/20 10/06/20 lisinopriL [Prinivil] 10 mg PO DAILY 10/06/20 10/06/20 oxyCODONE [Roxicodone] 1 tab PO Q4H PRN #20 tablet 10/07/20 rifAXIMin [Xifaxan] 550 mg PO DAILY 10/19/21 - Allergies Allergies/Adverse Reactions: Allergies Allergy/AdvReac Type Severity Reaction Status Date / Time No Known Drug Allergies Allergy Verified 10/19/21 04:23 Review of Systems - Constitutional Constitutional: denies: Fatigue, Fever, Chills - Cardiovascular Cariovascular: denies: Chest pain, Exertional dyspnea, Decr. exercise tolerance - Respiratory Respiratory: reports: Cough. denies: Sputum production, SOB at rest, SOB with exertion - Gastrointestinal Gastrointestinal: reports: Abdominal distention, Black stools, Bloody stools. denies: Abdominal pain, Nausea, Vomiting, Oscar blood emesis - Genitourinary Genitourinary: denies: Dysuria, Frequency, Urgency, Hematuria - Integumentary Integumentary: denies: Rash - Neurological Neurological: denies: General weakness, Focal weakness - Hematologic/Lymphatic Hematologic/Lymphatic: reports: Anemia, Bruising, Bleeding tendencies - All Other Systems All Other Systems: reports: Reviewed and negative Prior Level of Functionality: He is independent with his ADLs. Exam - Vital Signs Reviewed Vital Signs: Yes Vital Signs: Vital Signs x48h Temp Pulse Resp BP Pulse Ox 10/19/21 14:09 36 C L 76 15 114/66 95 10/19/21 12:16 81 14 99/67 97 10/19/21 10:49 77 17 111/60 99 10/19/21 07:54 36.6 C 75 16 104/58 L 100 - Physical Exam General Appearance: positive: No acute distress, Alert Eyes Bilateral: positive: Normal inspection, Conjunctivae nml ENT: positive: ENT inspection nml Neck: positive: Nml inspection Respiratory: positive: No respiratory distress. negative: Wheezes, Rales Cardiovascular: positive: Irregularly irregular, Other (ICD in place over left chest wall.). negative: Tachycardia, Systolic murmur Abdomen: positive: Non-tender. negative: No distention (Mild distention.), Tenderness Skin: positive: Warm, Dry Extremities: positive: Pedal edema (Trace edema in bilateral lower extremities.) Neurologic/Psychiatric: positive: Motor nml. negative: Disoriented to person, Disoriented to place Conclusion/Plan - Problem List (1) Gastrointestinal hemorrhage with melena Conclusion/Plan: His stool is positive for occult blood and he presents with melena. The plan will be to start him on Protonix IV and make him n.p.o. for an EGD today. Hold aspirin and Eliquis. Trend his hemoglobin every 8 hours. Appreciate general surgery input. (2) Anemia due to GI blood loss Conclusion/Plan: His hemoglobin is decreased compared to his baseline but appears to be relatively stable on recheck. Given his melena and occult positive stool, we will plan for endoscopy today. We will hold his Eliquis and aspirin and if he is stable overnight the plan will be to discharge him tomorrow while holding anticoagulation until he follows up. (3) Alcoholic cirrhosis of liver Conclusion/Plan: He has alcoholic liver cirrhosis and requires paracentesis every 3 weeks. This was obtained yesterday in the emergency department. We will resume his home diuretics when appropriate. Continue outpatient follow-up with GI. Qualifiers: Ascites presence: with ascites Qualified Code(s): K70.31 - Alcoholic cirrhosis of liver with ascites (4) Abdominal ascites Conclusion/Plan: A paracentesis was performed by the emergency department physician with 5000 mL drained. Qualifiers: Ascites type: due to alcoholic cirrhosis Qualified Code(s): K70.31 - Alcoholic cirrhosis of liver with ascites (5) Atrial fibrillation Conclusion/Plan: He is rate controlled. We will hold his Eliquis given the GI bleed. Continue Coreg. (6) CAD (coronary artery disease) Conclusion/Plan: Stable. We are we will hold his home aspirin and Eliquis for the time being. We will look to hopefully be able to resume at least the aspirin on discharge. Qualifiers: Coronary Disease-Associated Artery/Lesion type: unspecified vessel or lesion type [place] vs. transplanted heart: jamul heart Associated angina: unspecified whether angina present Qualified Code(s): I25.10 - Atherosclerotic heart disease of [place] coronary artery without angina pectoris (7) Insulin dependent diabetes mellitus Conclusion/Plan: His blood glucose is currently greater than 200. We will resume his home insulin after the EGD is restart him on a diet. Also place him on sliding scale. - Lab Results Lab results reviewed: Yes Fish Bones: 10/19/21 14:30 10/19/21 14:30 Core Measures - Anticipated LOS I expect patient to be DC'd or transferred within 96 hours.: Yes - Issues Hospital Issues and Management Plan: 71-year-old male with alcoholic liver cirrhosis presents with melena found to be anemic. We will place in observation for EGD and monitoring of hemoglobin. - DVT/VTE - Prophylaxis VTE/DVT Device ordered at admit?: Yes VTE/DVT Prophylaxis med ordered at admit?: No Not Ordered - Medical Reason: Contraindicated
[2021-10-19 16:31] LABS: B. PARAPERTUSSIS- RESP PCR PAN NOT DETECTED; B. PERTUSSIS- RESP PCR PANEL NOT DETECTED; C. PNEUMONIAE- RESP PCR PANEL NOT DETECTED; CORONAVIRUS 229E-RESP PCR NOT DETECTED; CORONAVIRUS HKU1-RESP PCR NOT DETECTED; CORONAVIRUS NL63-RESP PCR NOT DETECTED; CORONAVIRUS OC43-RESP PCR NOT DETECTED; HUMAN METAPNEUMOVIRUS NOT DETECTED; INFLUENZA A- RESP PCR PANEL NOT DETECTED; INFLUENZA B - RESP PCR PANEL NOT DETECTED; M. PNEUMONIAE- RESP PCR PANEL NOT DETECTED; PARAINFLUENZA VIRUS 1 NOT DETECTED; PARAINFLUENZA VIRUS 2 NOT DETECTED; PARAINFLUENZA VIRUS 3 NOT DETECTED; PARAINFLUENZA VIRUS 4 NOT DETECTED; RHINOVIRUS/ENTEROVIRUS NOT DETECTED; RSV- RESP PCR PANEL NOT DETECTED; SARS-CoV-2 -RESP PCR PANEL NOT DETECTED
[2021-10-19] MEDS ORDERED: POTASSIUM CHLORIDE 20 MEQ/15 ML UDC PO SCH (17:00)
[2021-10-19] MEDS ORDERED: PROPOFOL 200 MG/20 ML VIAL IVP ONE (17:15)
--- NOTE | 2021-10-19 17:21 | CONSULTATION NOTE ---
Referring Provider Name of Referring Provider:: Dr. Jason Wilson Consult Date: 10/19/21 Chief Complaint - Chief Complaint Chief Complaint: Abdominal pain and anemia History of Present Illness - Admitted From Admitted From:: ED - History Obtained From History obtained from: Patient and other providers Exam Limitations: None - History of Present Illness HPI Comment/Other: Unfortunate 71-year-old gentleman who presented to the emergency room complaining of abdominal pain. He has a significant past medical history and gets paracentesis monthly for end-stage liver disease. He does have synthetic function but suffers from portal hypertension. He reports he has been bit feeling weaker over the last several days and has had dark tarry stools for the last 3 to 4 days. He was seen and evaluated in the emergency room and subsequently admitted to the hospitalist service after receiving a paracentesis.He tells me he is retired [employer]. He says life was good to him and he traveled all over the world. He is currently having some extra difficulty because his is in memory care and he is not able to see her regularly. History - Past Medical History Cardiovascular: reports: Congestive heart failure, Hypertension, High cholesterol, Coronary artery disease, Angina, [place], Atrial fibrillation Respiratory: reports: COPD, Shortness of breath, Sleep apnea, CPAP use Neuro: reports: TIA, Peripheral neuropathy, Tremors Endocrine/Autoimmune: reports: Type 2 diabetes GI: reports: GERD, GI bleed, Ulcers : reports: Benign prostate hypertrophy, Renal insuffiency, Nocturia, Frequency HEENT: reports: Chronic vision loss, Chronic sinusitis, Macular degeneration, Chronic hearing loss Psych: reports: Depression, Anxiety Musculoskeletal: reports: Osteoarthritis, Fatigue, Chronic back pain Derm: reports: None MRSA Hx?: No - Past Surgical History General: reports: Cholecystectomy, EGD Ortho: reports: Arthroscopic surgery, Spine surgery Cardiovascular: reports: CABG, Coronary stent, Pacemaker, AICD, Cardiac catheterization - Family & Social History Family History: Mother: , CAD, Father: Family History Comment/Other: He reports no significant family history and denies a history of heart disease or cancer. Living arrangement: At home Living Situation: Alone Social History Notes: He lives at home alone. His has dementia and is at a memory care unit. He pretty smoked a pack a day but quit in the late . He also drinks alcohol on a daily basis but quit 2 years ago. - Substance History Use: Uses substance without health or social issues: Alcohol (1-2 drinks/day) - POLST Patient has POLST: No POLST Status: DNR Meds/Allgy - Home Medications Home Medications: Ambulatory Orders Medication Instructions Recorded Confirmed Apixaban [Eliquis] 5 mg PO BID 03/03/15 10/06/20 Aspirin [Aspir 81] 81 mg PO DAILY 03/03/15 10/06/20 Esomeprazole Magnesium [Nexium] 40 mg PO QDAC 03/03/15 10/06/20 Spironolactone 50 mg PO DAILY 03/03/15 10/06/20 Insulin Lispro Protamin/Lispro 70 units SUBQ QDBREAKFAST 01/19/16 04/04/19 [Humalog Mix 75-25 Vial] Insulin Lispro Protamin/Lispro 50 units SUBQ QDDINNER 04/04/19 04/04/19 [Humalog Mix 75-25 Vial] Midodrine [ProAmatine] 2.5 mg PO BID 04/04/19 10/06/20 Lidocaine Patch 5% [Lidoderm Patch] 1 patch TOP DAILY PRN #10 patch 09/09/20 Oxycodone HCl/Acetaminophen 1 - 2 each PO Q6H PRN #14 tablet 09/09/20 10/06/20 [Percocet 5-325 mg Tablet] Donepezil HCl [Aricept] 10 mg PO HS 10/06/20 10/06/20 Ezetimibe [Zetia] 10 mg PO DAILY 10/06/20 10/06/20 Memantine HCl [Namenda] 10 mg PO BID 10/06/20 10/06/20 Rosuvastatin Calcium [Crestor] 5 mg PO HS 10/06/20 10/06/20 Sertraline HCl [Zoloft] 100 mg PO DAILY 10/06/20 10/06/20 Torsemide 20 mg PO DAILY 10/06/20 10/06/20 carvediloL [Coreg] 3.125 mg PO BID 10/06/20 10/06/20 lisinopriL [Prinivil] 10 mg PO DAILY 10/06/20 10/06/20 oxyCODONE [Roxicodone] 1 tab PO Q4H PRN #20 tablet 10/07/20 rifAXIMin [Xifaxan] 550 mg PO DAILY 10/19/21 - Allergies Allergies/Adverse Reactions: Allergies Allergy/AdvReac Type Severity Reaction Status Date / Time No Known Drug Allergies Allergy Verified 10/19/21 04:23 Review of Systems - Constitutional Constitutional: reports: Fatigue - Gastrointestinal Gastrointestinal: reports: Abdominal pain - Hematologic/Lymphatic Hematologic/Lymphatic: reports: Anemia, Bruising, Petechiae Exam - Vital Signs Reviewed Vital Signs: Yes Vital Signs: Vital Signs x48h Temp Pulse Pulse Resp BP BP Pulse Ox 10/19/21 16:14 36.8 C 80 18 112/57 L 97 10/19/21 14:09 36 C L 76 15 114/66 95 10/19/21 12:16 81 14 99/67 97 10/19/21 10:49 77 17 111/60 99 - Physical Exam General Appearance: positive: No acute distress, Alert Eyes Bilateral: positive: Normal inspection, PERRL, EOMI Respiratory: positive: No respiratory distress, Breath sounds nml Cardiovascular: positive: Regular rate & rhythm Peripheral Pulses: positive: 0 Abdomen: positive: Nml bowel sounds, Tenderness (Minimal tenderness to palpation). negative: Guarding, Rebound Back: positive: Nml inspection Skin: positive: Other (Multiple areas of bruising and echymosis are noted over his bilateral upper extremities.) Neurologic/Psychiatric: positive: Oriented x3 Conclusion and Plan - Lab Results Microbiology Results 10/19/21 04:52 Stool - Soft Consistency Occult Blood - Final Laboratory Results 10/19/21 15:30: Nasal Adenovirus (PCR) NOT DETECTED, Nasal B. parapertussis DNA (PCR) NOT DETECTED, Nasal Coronavir 229E PCR NOT DETECTED, Nasal Coronavir HKU1 PCR NOT DETECTED, Nasal Coronavir NL63 PCR NOT DETECTED, Nasal Coronavir OC43 PCR NOT DETECTED, Nasal Enterovir/Rhinovir PCR NOT DETECTED, Nasal Influenza B PCR NOT DETECTED, Nasal Influenza A PCR NOT DETECTED, Nasal Parainfluen 1 PCR NOT DETECTED, Nasal Parainfluen 2 PCR NOT DETECTED, Nasal Parainfluen 3 PCR NOT DETECTED, Nasal Parainfluen 4 PCR NOT DETECTED, Nasal RSV (PCR) NOT DETECTED, Nasal B.pertussis DNA PCR NOT DETECTED, Nasal C.pneumoniae (PCR) NOT DETECTED, Roger Human Metapneumo PCR NOT DETECTED, Nasal M.pneumoniae (PCR) NOT DETECTED, Nasal SARS-CoV-2 (PCR) NOT DETECTED 10/19/21 14:30: B-Natriuretic Peptide 236 H 10/19/21 14:30: Sodium 137, Potassium 3.3 L, Chloride 101, Carbon Dioxide 28, Anion Gap 8.0, BUN 13, Creatinine 0.7, Estimated GFR (MDRD) 111, Glucose 206 H, Calcium 8.3 L 10/19/21 14:30: PT 14.9 H, INR 1.3 H 10/19/21 14:30: Hgb 8.3 L, Hct 26.4 L 10/19/21 10:13: Hgb 8.1 L, Hct 26.2 L 10/19/21 06:05: Fluid Source PERITONEAL, Fluid Color YELLOW, Fluid Clarity CLEAR, Fluid WBC 181, Fluid RBC 2000, Fluid Neutrophils % 23, Fluid Lymphocytes % 19, Fluid Monocytes % 3, Fluid Macrophages % 55, Fld Mesothelial Cell % 0 10/19/21 05:45: WBC 6.9, RBC 3.40 L, Hgb 8.6 L, Hct 27.9 L, MCV 82.1, MCH 25.3 L, MCHC 30.8 L, RDW 17.7 H, Plt Count 137, MPV 9.3, Neut # (Auto) 5.1, Lymph # (Auto) 1.0 L, [place] # (Auto) 0.5, Eos # (Auto) 0.3, Baso # (Auto) 0.1, Absolute Nucleated RBC 0.00, Nucleated RBC % 0.0 10/19/21 05:45: Sodium 135, Potassium 3.4 L, Chloride 97 L, Carbon Dioxide 28, Anion Gap 10.0, BUN 14, Creatinine 0.9, Estimated GFR (MDRD) 83 L, Glucose 238 H, Calcium 8.5, Magnesium 2.0, Total Bilirubin 1.2 H, AST 35, ALT 20, Alkaline Phosphatase 195 H, Total Protein 7.1, Albumin 3.1 L, Globulin 4.0, Albumin/Globulin Ratio 0.8 L, Lipase 31 - Diagnosis Diagnosis: Anemia with a history of end-stage cirrhosis and upper GI hemorrhage in the past. - Plan Plan: I agree with recommendation for upper GI endoscopy. If we do not find a source, he could be prepped for lower endoscopy at another time. He is very high risk and may be better served across the [facility] at a tertiary care facility.We have discussed the risks, benefits, and alternatives to EGD and the patient is expressed a desire to have the procedure.
--- NOTE | 2021-10-19 18:09 | ANESTHESIA POST OP EVALUATION ---
Anesthesia Post Eval - Post Anesthesia Eval Vitals: Last Vital Signs Temp 36.8 C 10/19/21 16:14 Pulse 80 10/19/21 16:14 Resp 18 10/19/21 16:14 BP 112/57 L 10/19/21 16:14 Pulse Ox 97 10/19/21 16:14 CV Function Including HR & BP: Stable Pain Control: Satisfactory Nausea & Vomiting: Negative Mental Status: Baseline Respiratory Status: Airway Patent Hydration Status: Satisfactory Anesthesia Complications: None
--- NOTE | 2021-10-19 18:09 | ANESTHESIA ---
Pre-Anesthesia VS, & Labs - Diagnosis Diagnosis Anemia with a history of end-stage cirrhosis and upper GI hemorrhage in the past. - Procedure EGD Vital Signs: Temp Pulse Resp BP Pulse Ox 36.8 C 80 18 112/57 L 97 10/19/21 16:14 10/19/21 16:14 10/19/21 16:14 10/19/21 16:14 10/19/21 16:14 Height: 5 ft 5 in Weight (kg): 89.6 kg Body Mass Index: 32.8 BMI Classification: Obese - NPO >8 hours - Lab Results Current Lab Results: Laboratory Tests 10/19/21 14:30: B-Natriuretic Peptide 236 H 10/19/21 14:30: Sodium 137, Potassium 3.3 L, Chloride 101, Carbon Dioxide 28, Anion Gap 8.0, BUN 13, Creatinine 0.7, Estimated GFR (MDRD) 111, Glucose 206 H, Calcium 8.3 L 10/19/21 14:30: PT 14.9 H, INR 1.3 H 10/19/21 14:30: Hgb 8.3 L, Hct 26.4 L 10/19/21 10:13: Hgb 8.1 L, Hct 26.2 L 10/19/21 05:45: WBC 6.9, RBC 3.40 L, Hgb 8.6 L, Hct 27.9 L, MCV 82.1, MCH 25.3 L , MCHC 30.8 L, RDW 17.7 H, Plt Count 137, MPV 9.3, Neut # (Auto) 5.1, Lymph # (Auto) 1.0 L, [place] # (Auto) 0.5, Eos # (Auto) 0.3, Baso # (Auto) 0.1, Absolute Nucleated RBC 0.00, Nucleated RBC % 0.0 10/19/21 05:45: Sodium 135, Potassium 3.4 L, Chloride 97 L, Carbon Dioxide 28, Anion Gap 10.0, BUN 14, Creatinine 0.9, Estimated GFR (MDRD) 83 L, Glucose 238 H , Calcium 8.5, Magnesium 2.0, Total Bilirubin 1.2 H, AST 35, ALT 20, Alkaline Phosphatase 195 H, Total Protein 7.1, Albumin 3.1 L, Globulin 4.0, Albumin/Globulin Ratio 0.8 L, Lipase 31 Lab results reviewed: Yes Fish Bones: 10/19/21 14:30 10/19/21 14:30 Home Medications and Allergies Home Medications: Ambulatory Orders rifAXIMin [Xifaxan] 550 mg PO DAILY 10/19/21 Active Medications Acetaminophen (Acetaminophen 325 Mg Tablet) 650 mg PO Q4HR PRN PRN Reason: Pain 1 to 4 Ondansetron HCl (Ondansetron Odt 4 Mg Tablet) 4 mg TL Q6HR PRN PRN Reason: Nausea / Vomiting Ondansetron HCl (Ondansetron 4 Mg/2 Ml Vial) 4 mg IVP Q6HR PRN PRN Reason: Nausea / Vomiting Pantoprazole Sodium (Pantoprazole 40 Mg Vial) 40 mg IVP QDAC [facility] Last Admin: 10/19/21 15:31 Dose: 40 mg Documented by: Sodium Chloride (Sodium Chloride Flush 0.9% 10 Ml Syringe) 10 ml IVP PRN PRN PRN Reason: NEEDED PER PROVIDER ORDERS Sodium Chloride (Sodium Chloride Flush 0.9% 10 Ml Syringe) 10 ml IVP 0100,0900,1700 [facility] Apixaban [Eliquis] 5 mg PO BID 03/03/15 Aspirin [Aspir 81] 81 mg PO DAILY 03/03/15 Esomeprazole Magnesium [Nexium] 40 mg PO QDAC 03/03/15 Spironolactone 50 mg PO DAILY 03/03/15 Insulin Lispro Protamin/Lispro [Humalog Mix 75-25 Vial] 70 units SUBQ QDBREAKFAST 01/19/16 Insulin Lispro Protamin/Lispro [Humalog Mix 75-25 Vial] 50 units SUBQ QDDINNER 04/04/19 Midodrine [ProAmatine] 2.5 mg PO BID 04/04/19 Donepezil HCl [Aricept] 10 mg PO HS 10/06/20 Ezetimibe [Zetia] 10 mg PO DAILY 10/06/20 Memantine HCl [Namenda] 10 mg PO BID 10/06/20 Rosuvastatin Calcium [Crestor] 5 mg PO HS 10/06/20 Sertraline HCl [Zoloft] 100 mg PO DAILY 10/06/20 Torsemide 20 mg PO DAILY 10/06/20 carvediloL [Coreg] 3.125 mg PO BID 10/06/20 lisinopriL [Prinivil] 10 mg PO DAILY 10/06/20 rifAXIMin [Xifaxan] 550 mg PO DAILY 10/19/21 Allergies/Adverse Reactions: Allergies Allergy/AdvReac Type Severity Reaction Status Date / Time No Known Drug Allergies Allergy Verified 10/19/21 04:23 Anes History & Medical History - Anesthetic History Anesthesia Complications: reports: No previous complications - Medical History Cardiovascular: reports: Congestive heart failure, Hypertension, High cholesterol, Coronary artery disease, Angina, [place], Atrial fibrillation Pulmonary: reports: COPD, Shortness of breath, Sleep apnea, CPAP use Gastrointestinal: reports: GERD, GI bleed, Ulcers Urinary: reports: Benign prostate hypertrophy, Renal insuffiency, Nocturia, Frequency Neuro: reports: TIA, Peripheral neuropathy, Tremors Musculoskeletal: reports: Osteoarthritis, Fatigue, Chronic back pain Endocrine/Autoimmune: reports: Type 2 diabetes Blood Disorders: reports: Anemia Skin: reports: None Smoking Status: Former smoker Psychosocial: reports: No issues indicated History of Cancer?: No - Surgical History General: reports: Cholecystectomy, EGD Cardiothoracic: reports: CABG, Coronary stent, Pacemaker, AICD, Cardiac catheterization Orthopedic: reports: Arthroscopic surgery, Spine surgery Exam General: Alert, Oriented x3, Cooperative, No acute distress Dental: Poor dentition Mouth Openin Fingerbreadth Neck Mobility: Reduced Mallampati classification: III Thyromental Distance: 4-6 cm Mental/Cognitive Status: Alert/Oriented X3, Normal for patient Plan Anesthesia Type: General, Total IV Consent for Procedure(s) Verified and Reviewed: Yes Code Status: Attempt Resuscitation ASA classification: 4-Incapacitating disease Is this case an emergency?: Yes
[2021-10-19] MEDS: SODIUM CHLORIDE FLUSH 0.9% 10 ML SYRINGE IVP SCH ×2 (19:33→23:48)
[2021-10-19] MEDS: INSULIN ASPART 300 UNIT/3 ML PEN SUBQ SCH (21:00)
[2021-10-19 21:17] LABS: HGB - HEMOGLOBIN 8.2 g/dL (14.0-18.0)
[2021-10-20 05:31] LABS: BASOPHILS % (AUTO) 0.8 %; EOSINOPHILS # (AUTO) 0.3 10^3/uL (0.0-0.7); EOSINOPHILS % (AUTO) 5.9 %; HGB - HEMOGLOBIN 8.5 g/dL (14.0-18.0); LYMPHOCYTES # (AUTO) 0.7 10^3/uL (1.5-3.5); LYMPHOCYTES % (AUTO) 14.5 %; MEAN CORPUSCULAR HEMOGLOBIN 25.4 pg (27.0-31.0); MEAN CORPUSCULAR HGB CONC 30.4 g/dL (32.0-36.0); MEAN CORPUSCULAR VOLUME 83.8 fL (80.0-94.0); MEAN PLATELET VOLUME 9.6 fL (7.4-11.4); MONOCYTES # (AUTO) 0.4 10^3/uL (0.0-1.0); MONOCYTES % (AUTO) 8.6 %; NEUTROPHILS # (AUTO) 3.4 10^3/uL (1.5-6.6); PLT - PLATELET COUNT 124 10^3/uL (130-450); RED BLOOD COUNT 3.34 10^6/uL (4.70-6.10); RED CELL DISTRIBUTION WIDTH 17.8 % (12.0-15.0); WHITE BLOOD COUNT 4.9 x10^3/uL (4.8-10.8)
[2021-10-20 05:36] LABS: CREATININE 0.7 mg/dL (0.6-1.2); POTASSIUM 3.6 mmol/L (3.5-5.0)
[2021-10-20] MEDS: PANTOPRAZOLE 40 MG VIAL IVP SCH (05:42)
[2021-10-20 07:23] VITALS: BP 116/62
[2021-10-20] MEDS ORDERED: INSULIN 70/30 HUMAN 300 UNIT/3 ML VIAL SUBQ SCH ×2 (08:00→17:00)
[2021-10-20] MEDS ORDERED: INSULIN 70/30 HUMAN 100 UNIT/1 ML 10 ML MDV SUBQ SCH ×2 (08:00→17:00)
[2021-10-20 08:02] LABS: % IRON SATURATION 7 % (20-50); IRON 22 ug/dL (45-182); TOTAL IRON BINDING CAPACITY 337 ug/dL (250-450); TRANSFERRIN 241 mg/dL (180-329)
--- NOTE | 2021-10-20 08:05 | Discharge Plan ---
Discharge Plan Problem Reviewed?: Yes Disposition: Home, Self Care Condition: Stable Prescriptions: Ferrous Sulfate [Feosol] 325 mg PO DAILYWM #30 tablet Diet: Cardiac Activity Restrictions: Activity as Tolerated Health Concerns: You were admitted to the hospital because of blood in your stool. Your blood counts have remained stable and you did not require any transfusions. You underwent an endoscopy which did not reveal a source of bleeding. You are now stable for discharge home. Plan of Treatment: We recommend that you stop taking Eliquis until you follow-up with your primary care physician. This can increase your risk of bleeding and given we do not have a clear source of it, it is recommended we stop the Eliquis. Fortunately your blood counts have remained stable and so this is likely not a significant bleed. You are also found to have low iron so please begin to take iron on a daily basis. A prescription was sent to your local pharmacy. Care Goals: The goal is to prevent future episodes of bleeding. Assessment: Patient expressed understanding of the treatment plan. Additional Instructions or Follow Up instructions: Please follow-up with your primary care physician in 1 to 2 weeks. They can check your blood counts then to ensure they are stable. Please return to the emergency department if you continue to have bleeding or it becomes more significant. No Smoking: If you smoke, Please STOP! Call for help.
[2021-10-20] MEDS: INSULIN ASPART 300 UNIT/3 ML PEN SUBQ SCH (08:06)
[2021-10-20] MEDS: SODIUM CHLORIDE FLUSH 0.9% 10 ML SYRINGE IVP SCH (08:06)
[2021-10-20] MEDS ORDERED: FERROUS SULFATE 325 MG TABLET PO SCH (09:00)
--- NOTE | 2021-10-20 09:30 | DISCHARGE SUMMARY ---
"Discharge Summary Admit Date: 10/19/21 Discharge Date: 10/20/21 Discharging Provider: Jason Hernadez Code Status: Do Not Attempt Resuscitation Condition at Discharge: Stable Discharge Disposition: 01 Home, Self Care - DIAGNOSES Admission Diagnoses: Gastrointestinal hemorrhage with melena Anemia due to GI blood loss Alcoholic cirrhosis of liver Abdominal ascites Atrial fibrillation Coronary artery disease Insulin-dependent diabetes mellitus Discharge Diagnoses with Status of Each Condition: Gastrointestinal hemorrhage with melena - resolved. Anemia due to GI blood loss - stable. Alcoholic cirrhosis of liver - stable. Abdominal ascites - stable. Atrial fibrillation - stable. Coronary artery disease - stable. Insulin-dependent diabetes mellitus - stable. - HPI History of Present Illness: This is a 71-year-old male with a past medical history significant for insulin- dependent diabetes mellitus, coronary artery disease status post stenting and CABG, atrial fibrillation on Eliquis with an ICD in place, alcoholic liver cirrhosis who presents today requesting paracentesis. He states he normally gets appearances every 3 weeks and will get that done here at our facility or at [facility] in [place]. His abdomen was becoming more distended and so he came to the emergency department overnight. He also noted that he developed melena and dark bloody stools over the past 3 to 4 days. He stopped the Eliquis about 3 days ago due to the bleeding. He continues to take aspirin 81 mg daily. He denies any other NSAID use including ibuprofen, Advil. He did have an endoscopy about 2 years ago which revealed angiodysplasia and this was felt to be the source of his bleeding. He also tells me he has had a history of gastric ulcers in the past. He dinies fevers, chills, chest pain, dyspnea or any other source of bleeding. In the emergency department, he was noted to be anemic with a hemoglobin of 8.6. This decreased to 8.1 on recheck. He also underwent a paracentesis in the emergency department. Given the above findings, medicine was consulted for admission. I discussed goals of care with the patient and he would like to be a DNR. - CONSULTS | PROCEDURES Consultations: General Surgery Procedures: He underwent endoscopy which showed no evidence of bleeding or a source of a potential cause of his bleed. - HOSPITAL COURSE Hospital Course: Prior to admission, he had a paracentesis with 5 L removed in the emergency department. He was then placed in observation for anemia secondary to suspected GI bleed. His hemoglobin actually remained stable and did not require transfusion. We held his Eliquis and he had no further episodes of bleeding. He did undergo endoscopy which showed no evidence of a GI bleed. He was discharged home the following day and he was asked to continue his aspirin but discontinue Eliquis until he follows up with his primary care physician. He was also found to be iron deficient and was started on oral iron. - ALLERGIES Allergies/Adverse Reactions: Allergies Allergy/AdvReac Type Severity Reaction Status Date / Time No Known Drug Allergies Allergy Verified 10/19/21 04:23 - MEDICATIONS Home Medications: Ambulatory Orders Medication Instructions Recorded Confirmed Aspirin [Aspir 81] 81 mg PO DAILY 03/03/15 10/20/21 Esomeprazole Magnesium [Nexium] 40 mg PO QDAC 03/03/15 10/20/21 Midodrine [ProAmatine] 2.5 mg PO BIDWM 04/04/19 10/20/21 Rosuvastatin Calcium [Crestor] 5 mg PO HS 10/06/20 10/20/21 Torsemide 60 mg PO DAILY 10/06/20 10/20/21 carvediloL [Coreg] 3.125 mg PO BID 10/06/20 10/20/21 rifAXIMin [Xifaxan] 550 mg PO BID 10/19/21 10/20/21 Dicyclomine HCl 20 mg PO QID PRN 10/20/21 10/20/21 Ferrous Sulfate [Feosol] 325 mg PO DAILYWM #30 tablet 10/20/21 Insulin 70/30 Human [NovoLIN] 50 unit SUBQ QDDINNER 10/20/21 10/20/21 Insulin 70/30 Human [NovoLIN] 70 unit SUBQ QDBREAKFAST 10/20/21 10/20/21 Sertraline [Zoloft] 25 mg PO DAILY 10/20/21 10/20/21 Spironolactone [Aldactone] 100 mg PO DAILY 10/20/21 10/20/21 - PHYSICAL EXAM AT DISCHARGE General Appearance: positive: No acute distress, Alert Eyes Bilateral: positive: Normal inspection, Conjunctivae nml ENT: positive: ENT inspection nml Neck: positive: Nml inspection Respiratory: positive: No respiratory distress. negative: Wheezes, Rales Cardiovascular: positive: Irregularly irregular, Other (ICD in place over left chest wall.). negative: Tachycardia, Systolic murmur Abdomen: positive: Non-tender. negative: No distention, Tenderness, Guarding, Rebound Skin: positive: Warm, Dry Extremities: positive: Pedal edema (Trace edema.) Neurologic/Psychiatric: positive: Motor nml. negative: Disoriented to person, Disoriented to place Physical Exam Other/Comments: Vital Signs - 24 hr 10/19/21 10/19/21 10/19/21 18:15 19:45 21:03 Temperature 36.6 C Heart Rate [ 75 82 74 Brachial] Respiratory 16 16 16 Rate Blood Pressure 117/59 L 115/60 110/62 [Right Brachial artery] O2 Saturation 96 97 97 10/20/21 10/20/21 10/20/21 00:44 06:28 07:19 Temperature 36.7 C 37 C 36.8 C Heart Rate [ 80 80 80 Brachial] Respiratory 18 17 20 Rate Blood Pressure 100/62 113/69 116/62 [Right Brachial artery] O2 Saturation 97 95 97 Oxygen O2 Source Room air - LABS Result Diagrams: 10/20/21 04:46 10/20/21 04:46 - FOLLOW UP Follow Up: He was asked to follow-up with his primary care physician in 1 to 2 weeks. - TIME SPENT Time Spent in Discharge (Minutes): 31"
== END 2021-10-20 11:15 | disposition home or self-care (01) ==
LOC: ED 04:08 → MS2 14:16
PROVIDERS: ADMIT Internal Medicine; ATTEND Internal Medicine
DX: K92.1 Melena (principal); D50.0 Iron deficiency anemia secondary to blood loss (chronic); K70.31 Alcoholic cirrhosis of liver with ascites; K76.6 Portal hypertension; E11.42 Type 2 diabetes mellitus with diabetic polyneuropathy; E66.9 Obesity, unspecified; E78.00 Pure hypercholesterolemia, unspecified; G47.30 Sleep apnea, unspecified; I25.10 Atherosclerotic heart disease of native coronary artery without angina pectoris; I48.91 Unspecified atrial fibrillation; I11.0 Hypertensive heart disease with heart failure; I50.9 Heart failure, unspecified; J44.9 Chronic obstructive pulmonary disease, unspecified; N40.1 Benign prostatic hyperplasia with lower urinary tract symptoms; R35.0 Frequency of micturition; R35.1 Nocturia; Z20.822 Contact with and (suspected) exposure to COVID-19; Z66 Do not resuscitate; Z79.01 Long term (current) use of anticoagulants; Z79.4 Long term (current) use of insulin; Z79.82 Long term (current) use of aspirin; Z68.32 Body mass index [BMI] 32.0-32.9, adult; Z86.73 Personal history of transient ischemic attack (TIA), and cerebral infarction without residual deficits; Z87.19 Personal history of other diseases of the digestive system; Z87.891 Personal history of nicotine dependence; Z95.1 Presence of aortocoronary bypass graft; Z95.810 Presence of automatic (implantable) cardiac defibrillator
CPT/HCPCS: 36415; 43235; 49082; 71045; 80048; 80053; 82272; 82728; 83540; 83690; 83735; 83880; 84466; 85014; 85018; 85025; 85610; 87070; 87205; 87631; 89051; 96365; 96375; 99284; 99285; A9270; G0378; J1815; P9047; 0202U; 89060

== ENCOUNTER 2021-11-09 10:56 | Emergency (ER) | payer MEDICARE, OTHER ==
--- NOTE | 2021-11-09 11:59 | ED Physician Documentation ---
History of Present Illness - Stated complaint Stated Complaint: SOA/DIZZY/ABD PX - Chief complaint Chief Complaint: Resp - History obtained from History obtained from: Patient - Additonal information Additional information: 71yo with hx cirrhosis/CAD (11 stents), afib p ablation and PPM. Stopped lactulose 7 days ago and stopped lasix 3 days ago. Increased SOB x 1 week and presents to ED requesting paracentesis. Sbd pain but no pressure. Longstanding cough with sputum. Review of Systems Ten Systems: 10 systems reviewed and negative Constitutional: denies: Fever, Chills Cardiac: denies: Chest pain / pressure Respiratory: reports: Dyspnea. denies: Cough PD PAST MEDICAL HISTORY - Past Medical History Cardiovascular: Congestive heart failure, Hypertension, High cholesterol, Coronary artery disease, Angina, [place], Atrial fibrillation Respiratory: COPD, Shortness of breath, Sleep apnea, CPAP use Neuro: TIA, Peripheral neuropathy, Tremors Endocrine/Autoimmune: Type 2 diabetes GI: GERD, GI bleed, Ulcers : Benign prostate hypertrophy, Renal insuffiency, Nocturia, Frequency HEENT: Chronic vision loss, Chronic sinusitis, Macular degeneration, Chronic hearing loss Psych: Depression, Anxiety Musculoskeletal: Osteoarthritis, Fatigue, Chronic back pain Derm: None - Past Surgical History Past Surgical History: Yes General: Cholecystectomy, EGD Ortho: Arthroscopic surgery, Spine surgery Cardiovascular: CABG, Coronary stent, Pacemaker, AICD, Cardiac catheterization - Present Medications Home Medications: Ambulatory Orders Medication Instructions Recorded Confirmed Aspirin [Aspir 81] 81 mg PO DAILY 03/03/15 10/20/21 Esomeprazole Magnesium [Nexium] 40 mg PO QDAC 03/03/15 10/20/21 Midodrine [ProAmatine] 2.5 mg PO BIDWM 04/04/19 10/20/21 Rosuvastatin Calcium [Crestor] 5 mg PO HS 10/06/20 10/20/21 Torsemide 60 mg PO DAILY 10/06/20 10/20/21 carvediloL [Coreg] 3.125 mg PO BID 10/06/20 10/20/21 rifAXIMin [Xifaxan] 550 mg PO BID 10/19/21 10/20/21 Dicyclomine HCl 20 mg PO QID PRN 10/20/21 10/20/21 Ferrous Sulfate [Feosol] 325 mg PO DAILYWM #30 tablet 10/20/21 Insulin 70/30 Human [NovoLIN] 50 unit SUBQ QDDINNER 10/20/21 10/20/21 Insulin 70/30 Human [NovoLIN] 70 unit SUBQ QDBREAKFAST 10/20/21 10/20/21 Sertraline [Zoloft] 25 mg PO DAILY 10/20/21 10/20/21 Spironolactone [Aldactone] 100 mg PO DAILY 10/20/21 10/20/21 - Allergies Allergies/Adverse Reactions: Allergies Allergy/AdvReac Type Severity Reaction Status Date / Time No Known Drug Allergies Allergy Verified 11/09/21 11:15 - Social History Does the pt smoke?: No Smoking Status: Former smoker Does the pt drink ETOH?: No Does the pt have substance abuse?: No - Family History Family history: reports: Non contributory - Immunizations Immunizations are current?: Yes - POLST Patient has POLST: No POLST Status: DNR PD ED PE NORMAL - Vitals Vital signs reviewed: Yes - General General: Alert and oriented X 3, No acute distress - Cardiac Cardiac: RRR, No murmur - Respiratory Respiratory: No respiratory distress, Other (diminished at both bases) - Abdomen Abdomen: Non tender, Other (tense ascites) - Back Back: No CVA TTP, No spinal TTP - Derm Derm: Normal color, Warm and dry - Extremities Extremities: Other (2+ bilateral edema) - Neuro Neuro: Alert and oriented X 3, Normal speech Results - Vitals Vitals: Vital Signs - 24 hr 11/09/21 11:12 Temperature 35.9 C L Heart Rate 95 Respiratory 16 Rate Blood Pressure 125/76 O2 Saturation 98 Oxygen O2 Source Room air Procedures - Paracentesis Preparation: Consent obtained Location: RLQ Technique: Z-tract, Catheter over needle Fluid: Clear, Volume - enter cc (6300ml) Aftercare: No complications, Bleeding - comment, Other (dermabond over site.) PD MEDICAL DECISION MAKING - ED course ED course: 71-year-old gentleman presents requesting therapeutic paracentesis for recurrent ascites. He was counseled to be more compliant with his medications. A 6.3 L paracentesis was done with symptomatic relief. Departure - Departure Disposition: 01 Home, Self Care Clinical Impression: Abdominal ascites Liver failure Qualifiers: Liver failure chronicity: chronic Hepatic coma status: without hepatic coma Q ualified Code(s): K72.10 - Chronic hepatic failure without coma Condition: Stable Record reviewed to determine appropriate education?: Yes Instructions: Paracentesis Dc Comments: Medications as you are supposed to. Return for new or worsening symptoms. Follow-up and talk with your doctor about a standing order so that you do not need to come to the emergency department for this.
[2021-11-09] MEDS ORDERED: lidocaine 1% 20 ML MDV ONE ×2 (12:32)
[2021-11-09 13:57] VITALS: BP 126/82
== END 2021-11-09 13:57 | disposition home or self-care (01) ==
LOC: ED 10:56
DX: K72.10 Chronic hepatic failure without coma (principal); R18.8 Other ascites; I13.0 Hypertensive heart and chronic kidney disease with heart failure and stage 1 through stage 4 chronic kidney disease, or unspecified chronic kidney disease; I50.9 Heart failure, unspecified; N18.9 Chronic kidney disease, unspecified; E11.22 Type 2 diabetes mellitus with diabetic chronic kidney disease; Z79.4 Long term (current) use of insulin; Z87.891 Personal history of nicotine dependence; Z95.0 Presence of cardiac pacemaker; Z95.5 Presence of coronary angioplasty implant and graft; Z79.82 Long term (current) use of aspirin
CPT/HCPCS: 49082

== ENCOUNTER 2021-11-26 08:05 | Emergency (ER) | payer MEDICARE, OTHER ==
[2021-11-26 09:29] LABS: BASOPHILS # (AUTO) 0.1 10^3/uL (0.0-0.1); BASOPHILS % (AUTO) 1.1 %; EOSINOPHILS # (AUTO) 0.2 10^3/uL (0.0-0.7); EOSINOPHILS % (AUTO) 3.1 %; HCT - HEMATOCRIT 32.3 % (42.0-52.0); HGB - HEMOGLOBIN 9.9 g/dL (14.0-18.0); LYMPHOCYTES # (AUTO) 0.8 10^3/uL (1.5-3.5); LYMPHOCYTES % (AUTO) 10.5 %; MEAN CORPUSCULAR HEMOGLOBIN 24.1 pg (27.0-31.0); MEAN CORPUSCULAR HGB CONC 30.7 g/dL (32.0-36.0); MEAN CORPUSCULAR VOLUME 78.6 fL (80.0-94.0); MEAN PLATELET VOLUME 8.8 fL (7.4-11.4); MONOCYTES # (AUTO) 0.6 10^3/uL (0.0-1.0); MONOCYTES % (AUTO) 8.7 %; NEUTROPHILS # (AUTO) 5.4 10^3/uL (1.5-6.6); NEUTROPHILS % (AUTO) 76.3 %; PLT - PLATELET COUNT 130 10^3/uL (130-450); RED BLOOD COUNT 4.11 10^6/uL (4.70-6.10); RED CELL DISTRIBUTION WIDTH 17.2 % (12.0-15.0); WHITE BLOOD COUNT 7.1 x10^3/uL (4.8-10.8)
[2021-11-26 09:33] LABS: INR 1.3 (0.8-1.2); PT - PROTHROMBIN TIME 14.4 secs (9.9-12.6)
[2021-11-26 09:39] LABS: ALBUMIN 2.7 g/dL (3.2-5.5); ALBUMIN/GLOBULIN RATIO 0.7 (1.0-2.2); ALKALINE PHOSPHATASE 203 IU/L (42-121); ALT ALANINE AMINOTRANSFERASE 20 IU/L (10-60); AST ASPARTATE AMINOTRANSFERASE 31 IU/L (10-42); BILIRUBIN,TOTAL 0.8 mg/dL (0.2-1.0); BUN - BLOOD UREA NITROGEN 17 mg/dL (6-20); CALCIUM 8.3 mg/dL (8.5-10.3); CARBON DIOXIDE - CO2 26 mmol/L (21-32); CHLORIDE 99 mmol/L (101-111); CREATININE 0.9 mg/dL (0.6-1.2); ETOH - ETHANOL < 5.0 mg/dL; GFR - MDRD 83 (>89); GLUCOSE 238 mg/dL (70-100); POTASSIUM 3.2 mmol/L (3.5-5.0); SODIUM 134 mmol/L (135-145); TOTAL PROTEIN 6.5 g/dL (6.7-8.2)
[2021-11-26] MEDS ORDERED: ALBUMIN 25% 12.5 GM/50 ML VIAL IV STA (10:40)
--- NOTE | 2021-11-26 11:00 | ED Physician Documentation ---
PD HPI DYSPNEA - Stated complaint Stated Complaint: SOA - Chief complaint Chief Complaint: Resp - Additional information Additional information: 71-year-old male with known history of CAD, CHF, cirrhosis, chronic ascites resenting to the emergency department requesting paracentesis. Reports fluid and distention to the abdomen that has been getting progressively worse since his last tap 11/10 also performed at this department. Denies chest pain, fever, abdominal pain, nausea, vomiting, diarrhea, constipation. Review of Systems Ten Systems: 10 systems reviewed and negative Constitutional: denies: Fever Eyes: denies: Loss of vision Ears: denies: Loss of hearing Nose: denies: Rhinorrhea / runny nose Cardiac: denies: Chest pain / pressure Respiratory: reports: Dyspnea. denies: Cough, Hemoptysis, Wheezing GI: reports: Abdominal Swelling. denies: Abdominal Pain, Nausea, Vomiting, Constipation, Diarrhea, Hematemesis : denies: Dysuria PD PAST MEDICAL HISTORY - Past Medical History Past Medical History: Yes Cardiovascular: Congestive heart failure, Hypertension, High cholesterol, Coronary artery disease, Angina, [place], Atrial fibrillation Respiratory: COPD, Shortness of breath, Sleep apnea, CPAP use Neuro: TIA, Peripheral neuropathy, Tremors Endocrine/Autoimmune: Type 2 diabetes GI: GERD, GI bleed, Ulcers : Benign prostate hypertrophy, Renal insuffiency, Nocturia, Frequency HEENT: Chronic vision loss, Chronic sinusitis, Macular degeneration, Chronic hearing loss Psych: Depression, Anxiety Musculoskeletal: Osteoarthritis, Fatigue, Chronic back pain Derm: None - Past Surgical History Past Surgical History: Yes General: Cholecystectomy, EGD Ortho: Arthroscopic surgery, Spine surgery Cardiovascular: CABG, Coronary stent, Pacemaker, AICD, Cardiac catheterization - Present Medications Home Medications: Ambulatory Orders Medication Instructions Recorded Confirmed Aspirin [Aspir 81] 81 mg PO DAILY 03/03/15 10/20/21 Esomeprazole Magnesium [Nexium] 40 mg PO QDAC 03/03/15 10/20/21 Midodrine [ProAmatine] 2.5 mg PO BIDWM 04/04/19 10/20/21 Rosuvastatin Calcium [Crestor] 5 mg PO HS 10/06/20 10/20/21 Torsemide 60 mg PO DAILY 10/06/20 10/20/21 carvediloL [Coreg] 3.125 mg PO BID 10/06/20 10/20/21 rifAXIMin [Xifaxan] 550 mg PO BID 10/19/21 10/20/21 Dicyclomine HCl 20 mg PO QID PRN 10/20/21 10/20/21 Ferrous Sulfate [Feosol] 325 mg PO DAILYWM #30 tablet 10/20/21 Insulin 70/30 Human [NovoLIN] 50 unit SUBQ QDDINNER 10/20/21 10/20/21 Insulin 70/30 Human [NovoLIN] 70 unit SUBQ QDBREAKFAST 10/20/21 10/20/21 Sertraline [Zoloft] 25 mg PO DAILY 10/20/21 10/20/21 Spironolactone [Aldactone] 100 mg PO DAILY 10/20/21 10/20/21 - Allergies Allergies/Adverse Reactions: Allergies Allergy/AdvReac Type Severity Reaction Status Date / Time No Known Drug Allergies Allergy Verified 11/26/21 08:21 - Social History Does the pt smoke?: No Smoking Status: Never smoker Does the pt drink ETOH?: No Does the pt have substance abuse?: No - Immunizations Immunizations are current?: Yes - POLST Patient has POLST: No POLST Status: DNR PD ED PE NORMAL - Vitals Vital signs reviewed: Yes - General General: Alert and oriented X 3 - HEENT HEENT: Atraumatic - Neck Neck: Supple, no meningeal sign - Cardiac Cardiac: RRR, No gallop - Respiratory Respiratory: No respiratory distress, Clear bilaterally - Male Male : Deferred - Rectal Rectal: Deferred - Extremities Extremities: No deformity - Neuro Neuro: Alert and oriented X 3, 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, No motor deficit - Psych Psych: Normal mood PD ED PE EXPANDED - Abdomen Abdomen: Distended Results - Vitals Vitals: Vital Signs - 24 hr 11/26/21 11/26/21 11/26/21 08:17 08:35 09:02 Temperature 36.7 C Heart Rate 92 78 86 Respiratory 23 13 17 Rate Blood Pressure 157/105 H 128/78 123/73 O2 Saturation 100 100 97 11/26/21 11/26/21 11/26/21 09:30 10:00 10:30 Temperature Heart Rate 77 74 77 Respiratory 18 23 13 Rate Blood Pressure 118/75 120/62 120/59 L O2 Saturation 100 100 100 11/26/21 11/26/21 11/26/21 11:00 11:30 11:50 Temperature 37.2 C Heart Rate 75 72 74 Respiratory 18 13 15 Rate Blood Pressure 110/58 L 105/58 L 102/51 L O2 Saturation 99 100 100 Oxygen O2 Source Room air Oxygen Flow Rate 2 - EKG (time done) 0822 Rate: Rate (enter#) (88) Rhythm: NSR [place]: LAD Intervals: Prolonged [place]. No: Prolonged QT QRS: Normal Ischemia: Normal ST segments. No: Hyperacute T waves Other comments: Other comments (Premature complexes both atrial and Ventricular) Compare to prior EKG: Other (.Rhythm has replaced atrial fibrillation as underlying rhythm. Premature atrial complexes are more frequent.) - Labs Labs: Laboratory Tests 11/26/21 11/26/21 11/26/21 09:20 09:20 09:20 WBC 7.1 RBC 4.11 L Hgb 9.9 L Hct 32.3 L MCV 78.6 L MCH 24.1 L MCHC 30.7 L RDW 17.2 H Plt Count 130 MPV 8.8 Neut # (Auto) 5.4 Lymph # (Auto) 0.8 L [place] # (Auto) 0.6 Eos # (Auto) 0.2 Baso # (Auto) 0.1 Absolute Nucleated RBC 0.00 Nucleated RBC % 0.0 PT 14.4 H INR 1.3 H Sodium 134 L Potassium 3.2 L Chloride 99 L Carbon Dioxide 26 Anion Gap 9.0 BUN 17 Creatinine 0.9 Estimated GFR (MDRD) 83 L Glucose 238 H Calcium 8.3 L Total Bilirubin 0.8 AST 31 ALT 20 Alkaline Phosphatase 203 H Total Protein 6.5 L Albumin 2.7 L Globulin 3.8 Albumin/Globulin Ratio 0.7 L Ethyl Alcohol < 5.0 Procedures - Paracentesis Preparation: Consent obtained, Ultrasound guidance, Sterile prep and drape, Local anesthesia Location: RLQ Technique: Catheter over needle Fluid: Cloudy (12 total liters) Aftercare: No complications, Patient tolerated well, Dressing applied PD MEDICAL DECISION MAKING - ED course Complexity details: reviewed old records, reviewed results, re-evaluated patient, d/w patient ED course: Is 71-year-old male presenting to the emergency department requesting parace ntesis. Chart review does demonstrate that he frequents our emergency department for similar procedures. He endorses for increasing abdominal distention and shortness of breath. Was placed on 2 L initially while in the emergency department. Denied any chest pain, fever, nausea or vomiting. Physical exam demonstrated a distended abdomen without indications of peritoneal irritation. No indications SBP or other intra-abdominal infection. I did obtain comprehensive labs which are generally within normal limits are nonactionable. Paracentesis was performed as outlined in procedure note above with 12 total liters extracted. Patient was given albumin infusion. Taken off supplemental oxygen. Reported feeling otherwise well. 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 Encouraged him to follow-up carefully with GI at [place] for future taps. Departure - Departure Disposition: Home, Self Care Clinical Impression: Ascites, SOB (shortness of breath) Instructions: Cirrhosis Comments: Thank you for allowing us to care for you today at [facility]. Today in the emergency department we performed a procedure known as a paracentesis, removed 12 L of fluid from your abdomen.The rest of your blood work and your EKG was very reassuring. I am glad you are feeling better. 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 It is highly likely that you will need regular paracentesis performed once every few weeks and it would be beneficial to have these arranged in advance. If it anytime you develop any new or worsening symptoms please not hesitate to return to the emergency department. Discharge Date/Time: 11/26/21 12:12
[2021-11-26 11:50] VITALS: BP 102/51
== END 2021-11-26 12:12 | disposition home or self-care (01) ==
LOC: ED 08:05
DX: R18.8 Other ascites (principal); R06.02 Shortness of breath; K74.60 Unspecified cirrhosis of liver; I49.1 Atrial premature depolarization; I49.3 Ventricular premature depolarization; I44.4 Left anterior fascicular block; I10 Essential (primary) hypertension; I25.10 Atherosclerotic heart disease of native coronary artery without angina pectoris; Z95.1 Presence of aortocoronary bypass graft; J44.9 Chronic obstructive pulmonary disease, unspecified; E11.42 Type 2 diabetes mellitus with diabetic polyneuropathy; Z79.4 Long term (current) use of insulin; Z79.82 Long term (current) use of aspirin; Z66 Do not resuscitate
CPT/HCPCS: 36415; 49082; 80053; 85025; 85610; 93005; 96365; 99283; 99284; G0480; P9047; 80320

== ENCOUNTER 2021-12-06 12:05 | Outpatient (CLI) | payer MEDICARE, OTHER ==
[2021-12-06 12:39] LABS: INR 1.5 (0.8-1.2); PT - PROTHROMBIN TIME 16.4 secs (9.9-12.6)
[2021-12-06 12:46] LABS: PARTIAL THROMBOPLASTIN TIME 33.3 secs (24.9-33.3)
[2021-12-06] MEDS ORDERED: lidocaine 1% 20 ML MDV SUBQ ONE (15:15)
--- NOTE | 2021-12-06 16:08 | Ultrasound Report ---
PROCEDURE: Abdominal Paracentesis INDICATIONS: CRYPTOGENIC CIRRHOSIS TECHNIQUE: The indications, alternatives, benefits, risks, and complications of the procedure were explained to the patient. Written informed consent was obtained and placed in the chart. The abdomen and pelvis were examined sonographically, and an appropriate site was chosen for paracentesis. The skin was pre pared and draped in the usual sterile fashion, and 1% lidocaine was infiltrated from the skin down th rough the peritoneal surface. A 19-gauge catheter-covered needle was then introduced into the perito araceli space, the catheter was advanced and the needle was withdrawn, and thereafter peritoneal fluid w as withdrawn. The catheter was then removed and a dressing was applied. The fluid was discarded if the clinician did not order diagnostic testing of the fluid. COMPARISON: None FINDINGS: Access site: Right lower quadrant Needle: One-Step centesis catheter with introducer needle. Fluid volume and description: 5.0 L of translucent serous fluid Fluid sent for diagnostic testing: Not requested Medications: 1% lidocaine for local anaesthesia. Complications: None. IMPRESSION: Technically successful ultrasound-guided paracentesis. Reviewed by: Chapito Pan MD on 12/06/2021 4:07 PM PST Approved by: Chapito Pan MD on 12/06/2021 4:07 PM PST Station ID: [id number]
== END 2021-12-06 12:06 | disposition home or self-care (01) ==
LOC: LAB 12:05
PROVIDERS: ATTEND Internal Medicine Transplant Hepatology
DX: K72.90 Hepatic failure, unspecified without coma (principal); K74.69 Other cirrhosis of liver
CPT/HCPCS: 36415; 49083; 85610; 85730

== ENCOUNTER 2021-12-22 08:03 | Emergency (ER) | payer MEDICARE, OTHER ==
--- NOTE | 2021-12-22 08:17 | ED Physician Documentation ---
PD HPI ABD PAIN - Stated complaint Stated Complaint: ABD PX - Chief complaint Chief Complaint: Abd Pain - History obtained from History obtained from: Patient - History of Present Illness Timing - onset: How many days ago (several days of significant dyspnea due to enlarged abd ascites.) Timing - duration: Days, Weeks Timing - details: Gradual onset, Still present Quality: Aching, Fullness/distended Location: All over / everywhere Associated symptoms: No: Fever, Nausea, Vomiting, Diarrhea Similar symptoms before: Diagnosis (liver failure with ascites and has had abdomen tapped 8 times previously. He is schedule to start monthly paracentesis through DI starting December 29.) Recently seen: Not recently seen Review of Systems Constitutional: denies: Fever, Chills Nose: denies: Rhinorrhea / runny nose, Congestion Throat: denies: Sore throat Respiratory: denies: Cough GI: reports: Abdominal Pain, Abdominal Swelling. denies: Nausea, Vomiting, Diarrhea Skin: denies: Rash, Lesions Neurologic: reports: Generalized weakness. denies: Focal weakness, Numbness PD PAST MEDICAL HISTORY - Past Medical History Cardiovascular: Congestive heart failure, Hypertension, High cholesterol, Coronary artery disease, Angina, [place], Atrial fibrillation Respiratory: COPD, Shortness of breath, Sleep apnea, CPAP use Neuro: TIA, Peripheral neuropathy, Tremors Endocrine/Autoimmune: Type 2 diabetes GI: GERD, GI bleed, Ulcers : Benign prostate hypertrophy, Renal insuffiency, Nocturia, Frequency HEENT: Chronic vision loss, Chronic sinusitis, Macular degeneration, Chronic hearing loss Psych: Depression, Anxiety Musculoskeletal: Osteoarthritis, Fatigue, Chronic back pain Derm: None - Past Surgical History Past Surgical History: Yes General: Cholecystectomy, EGD Ortho: Arthroscopic surgery, Spine surgery Cardiovascular: CABG, Coronary stent, Pacemaker, AICD, Cardiac catheterization - Present Medications Home Medications: Ambulatory Orders Medication Instructions Recorded Confirmed Aspirin [Aspir 81] 81 mg PO DAILY 03/03/15 10/20/21 Esomeprazole Magnesium [Nexium] 40 mg PO QDAC 03/03/15 10/20/21 Midodrine [ProAmatine] 2.5 mg PO BIDWM 04/04/19 10/20/21 Rosuvastatin Calcium [Crestor] 5 mg PO HS 10/06/20 10/20/21 Torsemide 60 mg PO DAILY 10/06/20 10/20/21 carvediloL [Coreg] 3.125 mg PO BID 10/06/20 10/20/21 rifAXIMin [Xifaxan] 550 mg PO BID 10/19/21 10/20/21 Dicyclomine HCl 20 mg PO QID PRN 10/20/21 10/20/21 Ferrous Sulfate [Feosol] 325 mg PO DAILYWM #30 tablet 10/20/21 Insulin 70/30 Human [NovoLIN] 50 unit SUBQ QDDINNER 10/20/21 10/20/21 Insulin 70/30 Human [NovoLIN] 70 unit SUBQ QDBREAKFAST 10/20/21 10/20/21 Sertraline [Zoloft] 25 mg PO DAILY 10/20/21 10/20/21 Spironolactone [Aldactone] 100 mg PO DAILY 10/20/21 10/20/21 - Allergies Allergies/Adverse Reactions: Allergies Allergy/AdvReac Type Severity Reaction Status Date / Time No Known Drug Allergies Allergy Verified 12/22/21 08:13 - Social History Does the pt smoke?: No Smoking Status: Never smoker Does the pt drink ETOH?: No Does the pt have substance abuse?: No - Immunizations Immunizations are current?: Yes - POLST Patient has POLST: No POLST Status: DNR PD ED PE NORMAL - Vitals Vital signs reviewed: Yes - General General: Alert and oriented X 3, Well developed/nourished, Other (appears uncomfortable and with some work of breathing. Unable to sit up straight due to distension of the abdomen. ) - Neck Neck: Supple, no meningeal sign, No adenopathy - Cardiac Cardiac: RRR, No murmur - Respiratory Respiratory: No: Clear bilaterally (mild faint crackles at bases. ) - Abdomen Abdomen: Other (abd markedly distended. Tense and dullness to percussion. ) - Derm Derm: Normal color, Warm and dry - Extremities Extremities: No tenderness to palpate, Normal ROM s pain, No calf tenderness / cord, Other (1+ edema in both legs up to the knees. ) - Neuro Neuro: Alert and oriented X 3, No motor deficit, Normal speech Results - Vitals Vitals: Vital Signs - 24 hr 12/22/21 12/22/21 12/22/21 09:30 10:05 10:30 Temperature Heart Rate 78 74 68 Heart Rate [ Sitting] Heart Rate [ Standing] Heart Rate [ Supine] Respiratory 22 14 14 Rate Blood Pressure 127/72 126/65 109/65 Blood Pressure [Sitting] Blood Pressure [Standing] Blood Pressure [Supine] O2 Saturation 100 94 100 12/22/21 12/22/21 12/22/21 11:00 11:30 12:07 Temperature 36.6 C Heart Rate 74 75 71 Heart Rate [ Sitting] Heart Rate [ Standing] Heart Rate [ Supine] Respiratory 15 16 14 Rate Blood Pressure 103/59 L 99/61 99/50 L Blood Pressure [Sitting] Blood Pressure [Standing] Blood Pressure [Supine] O2 Saturation 98 98 100 12/22/21 12:14 Temperature Heart Rate Heart Rate [ 63 Sitting] Heart Rate [ 77 Standing] Heart Rate [ 75 Supine] Respiratory Rate Blood Pressure Blood Pressure 99/49 L [Sitting] Blood Pressure 93/47 L [Standing] Blood Pressure 97/61 [Supine] O2 Saturation Oxygen O2 Source Room air - Labs Labs: Microbiology 12/22/21 10:22 Gram Stain - Final Abdomen 12/22/21 10:22 Body Fluid Culture - Preliminary Ascities Fluid Laboratory Tests 12/22/21 12/22/21 12/22/21 08:36 08:36 10:22 WBC 7.0 RBC 4.29 L Hgb 10.3 L Hct 33.0 L MCV 76.9 L MCH 24.0 L MCHC 31.2 L RDW 18.3 H Plt Count 133 MPV 9.9 Neut # (Auto) 5.3 Lymph # (Auto) 0.6 L [place] # (Auto) 0.7 Eos # (Auto) 0.3 Baso # (Auto) 0.1 Absolute Nucleated RBC 0.00 Nucleated RBC % 0.0 Sodium 133 L Potassium 3.3 L Chloride 99 L Carbon Dioxide 27 Anion Gap 7.0 BUN 31 H Creatinine 1.2 Estimated GFR (MDRD) 60 L Glucose 100 Calcium 8.4 L Magnesium 1.9 Total Bilirubin 1.0 AST 32 ALT 19 Alkaline Phosphatase 208 H Total Protein 6.6 L Albumin 2.8 L Globulin 3.8 Albumin/Globulin Ratio 0.7 L Lipase 50 Fluid Source PERITONEAL Fluid Color YELLOW Fluid Clarity HAZY Fluid WBC 99 Fluid RBC < 3000 Fluid Neutrophils % 12 Fluid Lymphocytes % 47 Fluid Monocytes % 10 Fluid Macrophages % 31 Fld Mesothelial Cell % Not Reportable - Rads (name of study) chest xray Radiology: Prelim report reviewed (no infiltrates. some vascular congestion. ), See rad report Procedures - Paracentesis Preparation: Consent obtained, Ultrasound guidance, Sterile prep and drape, Local anesthesia Location: RLQ Technique: Z-tract, Catheter over needle Fluid: Clear, Sent for cell count, Sent for gram stain, Sent for culture, Volume - enter cc (7500) Aftercare: No complications, Patient tolerated well, Dressing applied PD MEDICAL DECISION MAKING - ED course Complexity details: re-evaluated patient (feeling much better breathing after procedure. Pressur elower but not orthostatic. ), considered differential, d/w patient Departure - Departure Disposition: Home, Self Care Clinical Impression: Dyspnea, Ascites of liver, Status post abdominal paracentesis Condition: Stable Instructions: ED Ascites, ED Dyspnea Shortness of Breath Comments: Continue with usual medications. Continue as planned with your scheduled paracentesis December 29 as will be good to start these regularly as scheduled to keep him from accumulating too much. Rest and take it easy today. Follow-up with your GI/liver specialist. Discharge Date/Time: 12/22/21 12:45
[2021-12-22] MEDS ORDERED: ALBUMIN 25% 12.5 GM/50 ML VIAL IV STA (08:28)
[2021-12-22] MEDS ORDERED: FUROSEMIDE 20 MG/2 ML VIAL IVP STA (08:28)
[2021-12-22] MEDS ORDERED: POTASSIUM CHLORIDE 20 MEQ TABLET PO STA (08:29)
[2021-12-22 08:42] LABS: BASOPHILS # (AUTO) 0.1 10^3/uL (0.0-0.1); BASOPHILS % (AUTO) 1.1 %; EOSINOPHILS # (AUTO) 0.3 10^3/uL (0.0-0.7); EOSINOPHILS % (AUTO) 4.1 %; HGB - HEMOGLOBIN 10.3 g/dL (14.0-18.0); LYMPHOCYTES # (AUTO) 0.6 10^3/uL (1.5-3.5); LYMPHOCYTES % (AUTO) 8.9 %; MEAN CORPUSCULAR HGB CONC 31.2 g/dL (32.0-36.0); MEAN CORPUSCULAR VOLUME 76.9 fL (80.0-94.0); MEAN PLATELET VOLUME 9.9 fL (7.4-11.4); MONOCYTES # (AUTO) 0.7 10^3/uL (0.0-1.0); MONOCYTES % (AUTO) 9.3 %; NEUTROPHILS # (AUTO) 5.3 10^3/uL (1.5-6.6); NEUTROPHILS % (AUTO) 76.2 %; PLT - PLATELET COUNT 133 10^3/uL (130-450); RED BLOOD COUNT 4.29 10^6/uL (4.70-6.10); RED CELL DISTRIBUTION WIDTH 18.3 % (12.0-15.0)
[2021-12-22 08:55] LABS: ALBUMIN 2.8 g/dL (3.2-5.5); ALBUMIN/GLOBULIN RATIO 0.7 (1.0-2.2); CALCIUM 8.4 mg/dL (8.5-10.3); CREATININE 1.2 mg/dL (0.6-1.2); MAGNESIUM 1.9 mg/dL (1.7-2.8); POTASSIUM 3.3 mmol/L (3.5-5.0); TOTAL PROTEIN 6.6 g/dL (6.7-8.2)
--- NOTE | 2021-12-22 09:34 | XRAY Report ---
PROCEDURE: Chest 1 View X-Ray INDICATIONS: chest pain TECHNIQUE: One view of the chest was acquired. COMPARISON: Chest x-ray 10/19/2021 FINDINGS: Surgical changes and devices: Pacemaker and sternal wires are noted. Lungs and pleura: No pleural effusions or pneumothorax. Lungs are clear. Mediastinum: Mediastinal contours appear normal. Heart size is enlarged. Bones and chest wall: No suspicious bony lesions. Overlying soft tissues appear unremarkable. IMPRESSION: Poor inspiratory effort. However, no gross effusion or consolidation. Reviewed by: Chitra Pitt MD on 12/22/2021 9:33 AM [facility] Approved by: Chitra Pitt MD on 12/22/2021 9:33 AM [facility] Station ID: [id number]
[2021-12-22 11:01] LABS: BF SOURCE PERITONEAL; CC,BF WBC 99 /mm^3
[2021-12-22 11:02] LABS: BF CLARITY HAZY; BF COLOR YELLOW
[2021-12-22 12:13] LABS: CC,BF RBC < 3000 /mm^3
[2021-12-22 12:14] LABS: LYMPHOCYTES %,BODY FLUID 47 %; MACROPHAGES %,BODY FLUID 31 %; MONOCYTES %,BODY FLUID 10 %; NEUTROPHILS %, BF 12 %
[2021-12-22 12:24] VITALS: BP 97/61
== END 2021-12-22 12:45 | disposition home or self-care (01) ==
LOC: ED 08:03
DX: R18.8 Other ascites (principal); Z98.890 Other specified postprocedural states; E11.42 Type 2 diabetes mellitus with diabetic polyneuropathy; Z79.4 Long term (current) use of insulin; I11.0 Hypertensive heart disease with heart failure; I50.9 Heart failure, unspecified
CPT/HCPCS: 36415; 49082; 71045; 80053; 83690; 83735; 85025; 87070; 87205; 89051; 96365; 96375; 99283; 99285; A9270; P9047

== ENCOUNTER 2021-12-29 10:22 | Outpatient (CLI) | payer MEDICARE, OTHER ==
[~2021-12-29 10:22] MED LIST: lidocaine 1% 20 ML MDV ONE
[2021-12-29 10:56] LABS: INR 1.5 (0.8-1.2); PT - PROTHROMBIN TIME 16.6 secs (9.9-12.6)
[2021-12-29 11:03] LABS: ALBUMIN 2.9 g/dL (3.2-5.5); CALCIUM 8.4 mg/dL (8.5-10.3); CREATININE 1.2 mg/dL (0.6-1.2); PHOSPHORUS 4.1 mg/dL (2.5-4.6); POTASSIUM 3.6 mmol/L (3.5-5.0)
[2021-12-29 11:04] LABS: PARTIAL THROMBOPLASTIN TIME 35.4 secs (24.9-33.3)
[2021-12-29] MEDS ORDERED: lidocaine 1% 20 ML MDV SUBQ ONE (12:43)
--- NOTE | 2021-12-30 17:57 | Ultrasound Report ---
PROCEDURE: Abdominal Paracentesis INDICATIONS: CRYPTOGENIC CIRRHOSIS TECHNIQUE: The indications, alternatives, benefits, risks, and complications of the procedure were explained to the patient. Written informed consent was obtained and placed in the chart. The abdomen and pelvis were examined sonographically, and an appropriate site was chosen for paracentesis. The skin was pre pared and draped in the usual sterile fashion, and 1% lidocaine was infiltrated from the skin down th rough the peritoneal surface. A 19-gauge catheter-covered needle was then introduced into the perito araceli space, the catheter was advanced and the needle was withdrawn, and thereafter peritoneal fluid w as withdrawn. The catheter was then removed and a dressing was applied. The fluid was discarded if the clinician did not order diagnostic testing of the fluid. COMPARISON: None FINDINGS: Access site: Right lower quadrant Needle: One-Step centesis catheter with introducer needle. Fluid volume and description: 10.4 L, cloudy yellow Fluid sent for diagnostic testing: No Medications: 1% lidocaine for local anaesthesia. Complications: None. IMPRESSION: Successful ultrasound-guided paracentesis. Reviewed by: Chitra Pitt MD on 12/30/2021 5:56 PM PST Approved by: Chitra Pitt MD on 12/30/2021 5:56 PM PST Station ID: [id number]
== END 2021-12-29 10:23 | disposition home or self-care (01) ==
LOC: DI 10:22
PROVIDERS: ATTEND Internal Medicine Transplant Hepatology
DX: K72.90 Hepatic failure, unspecified without coma (principal); K74.60 Unspecified cirrhosis of liver; E87.6 Hypokalemia; E83.51 Hypocalcemia
CPT/HCPCS: 36415; 49083; 80069; 83735; 85610; 85730

== ENCOUNTER 2022-01-04 12:24 | Outpatient (CLI) | payer MEDICARE, OTHER | END 2022-01-04 23:59 | disposition left against medical advice (07) | LOC: EMS 12:24 | DX: R53.1 Weakness (principal); I95.9 Hypotension, unspecified ==

== ENCOUNTER 2022-01-15 09:44 | Emergency (ER) | payer MEDICARE, OTHER ==
[2022-01-15] MEDS ORDERED: LIDOCAINE 1%-EPI 1:100000 20 ML MDV SUBQ STA (09:55)
--- NOTE | 2022-01-15 10:28 | ED Physician Documentation ---
History of Present Illness - Stated complaint Stated Complaint: SOA/ABD PRESSURE - Chief complaint Chief Complaint: Abd Pain - History obtained from History obtained from: Patient - Additonal information Additional information: Patient is a 71-year-old male who presents to the emergency department complaining of increasing abdominal ascites and dyspnea. He is scheduled for a paracentesis on Sunday. He states he is having difficulty breathing and walking. Requesting a paracentesis today. No fevers. No chills. Nothing makes it better or worse Review of Systems Ten Systems: 10 systems reviewed and negative Constitutional: denies: Fever, Chills Respiratory: denies: Cough GI: denies: Vomiting, Diarrhea Skin: denies: Rash Musculoskeletal: denies: Neck pain, Back pain Neurologic: denies: Headache PD PAST MEDICAL HISTORY - Past Medical History Cardiovascular: Congestive heart failure, Hypertension, High cholesterol, Coronary artery disease, Angina, [place], Atrial fibrillation Respiratory: COPD, Shortness of breath, Sleep apnea, CPAP use Neuro: TIA, Peripheral neuropathy, Tremors Endocrine/Autoimmune: Type 2 diabetes GI: GERD, GI bleed, Ulcers : Benign prostate hypertrophy, Renal insuffiency, Nocturia, Frequency HEENT: Chronic vision loss, Chronic sinusitis, Macular degeneration, Chronic hearing loss Psych: Depression, Anxiety Musculoskeletal: Osteoarthritis, Fatigue, Chronic back pain Derm: None - Past Surgical History Past Surgical History: Yes General: Cholecystectomy, EGD Ortho: Arthroscopic surgery, Spine surgery Cardiovascular: CABG, Coronary stent, Pacemaker, AICD, Cardiac catheterization - Present Medications Home Medications: Ambulatory Orders Medication Instructions Recorded Confirmed Aspirin [Aspir 81] 81 mg PO DAILY 03/03/15 10/20/21 Esomeprazole Magnesium [Nexium] 40 mg PO QDAC 03/03/15 10/20/21 Midodrine [ProAmatine] 2.5 mg PO BIDWM 04/04/19 10/20/21 Rosuvastatin Calcium [Crestor] 5 mg PO HS 10/06/20 10/20/21 Torsemide 60 mg PO DAILY 10/06/20 10/20/21 carvediloL [Coreg] 3.125 mg PO BID 10/06/20 10/20/21 rifAXIMin [Xifaxan] 550 mg PO BID 10/19/21 10/20/21 Dicyclomine HCl 20 mg PO QID PRN 10/20/21 10/20/21 Ferrous Sulfate [Feosol] 325 mg PO DAILYWM #30 tablet 10/20/21 Insulin 70/30 Human [NovoLIN] 50 unit SUBQ QDDINNER 10/20/21 10/20/21 Insulin 70/30 Human [NovoLIN] 70 unit SUBQ QDBREAKFAST 10/20/21 10/20/21 Sertraline [Zoloft] 25 mg PO DAILY 10/20/21 10/20/21 Spironolactone [Aldactone] 100 mg PO DAILY 10/20/21 10/20/21 - Allergies Allergies/Adverse Reactions: Allergies Allergy/AdvReac Type Severity Reaction Status Date / Time No Known Drug Allergies Allergy Verified 01/15/22 09:54 - Social History Does the pt smoke?: No Smoking Status: Never smoker Does the pt drink ETOH?: No Does the pt have substance abuse?: No - Immunizations Immunizations are current?: Yes - POLST Patient has POLST: No POLST Status: DNR PD ED PE NORMAL - Vitals Vital signs reviewed: Yes - General General: Alert and oriented X 3, No acute distress - HEENT HEENT: PERRL, Moist mucous membranes - Neck Neck: Supple, no meningeal sign - Cardiac Cardiac: RRR, Strong equal pulses - Respiratory Respiratory: Clear bilaterally, Other (Mild respiratory distress, mild tachypne a) - Abdomen Abdomen: Other (Firm, distended abdomen. Nontender) - Derm Derm: Warm and dry - Extremities Extremities: Other (2+ bilateral pitting edema) - Neuro Neuro: Alert and oriented X 3 - Psych Psych: Normal mood, Normal affect Results - Vitals Vitals: Vital Signs - 24 hr 01/15/22 01/15/22 01/15/22 09:50 09:58 11:10 Temperature 36.1 C L 36.5 C 36.5 C Heart Rate 86 86 60 Respiratory 18 18 16 Rate Blood Pressure 146/81 H 146/81 H 114/73 O2 Saturation 99 99 100 Oxygen O2 Source Room air Procedures - Paracentesis Preparation: Consent obtained, Ultrasound guidance, Sterile prep and drape, Local anesthesia Location: RLQ Technique: Z-tract, Catheter over needle Fluid: Clear, Volume - enter cc (4000) Aftercare: No complications, Patient tolerated well, Dressing applied PD MEDICAL DECISION MAKING - ED course Complexity details: reviewed old records, re-evaluated patient, considered differential, d/w patient ED course: 71-year-old male requesting paracentesis. He is in mild respiratory distress. Therefore informed consent was obtained and a paracentesis was informed. 4 L drained. Feeling much better. No complications. He will follow up on Sunday for his regular paracentesis. Patient counseled regarding signs and symptoms for which I believe and urgent re-evaluation would be necessary. Patient with good understanding of and agreement to plan and is comfortable going home at this time This document was made in part using voice recognition software. While efforts are made to proofread this document, sound alike and grammatical errors may occur. Please note that the fluid was clear and yellow and not purulent as stated in the nurses notes Departure - Departure Disposition: 01 Home, Self Care Clinical Impression: Alcoholic cirrhosis of liver Qualifiers: Ascites presence: with ascites Qualified Code(s): K70.31 - Alcoholic cirrhosis of liver with ascites Abdominal ascites Qualifiers: Ascites type: due to alcoholic hepatitis Qualified Code(s): K70.11 - Alcoholic hepatitis with ascites Condition: Good Instructions: Paracentesis Follow-Up: AYUSH FRANCIS MD [Primary Care Provider] - Within 1 week Comments: Please continue your current medications at home. Return if you worsen. Follow-up with your doctor for further care. Discharge Date/Time: 01/15/22 11:10
[2022-01-15 11:12] VITALS: BP 114/73
== END 2022-01-15 11:10 | disposition home or self-care (01) ==
LOC: ED 09:44
DX: K70.31 Alcoholic cirrhosis of liver with ascites (principal); K70.11 Alcoholic hepatitis with ascites; I11.0 Hypertensive heart disease with heart failure; I50.9 Heart failure, unspecified; I48.91 Unspecified atrial fibrillation; E11.42 Type 2 diabetes mellitus with diabetic polyneuropathy; Z79.4 Long term (current) use of insulin; Z95.1 Presence of aortocoronary bypass graft; Z95.0 Presence of cardiac pacemaker; Z66 Do not resuscitate
CPT/HCPCS: 49082

== ENCOUNTER 2022-01-20 08:55 | Outpatient (CLI) | payer MEDICARE, OTHER ==
[2022-01-20 09:25] LABS: BASOPHILS # (AUTO) 0.1 10^3/uL (0.0-0.1); EOSINOPHILS % (AUTO) 0.2 %; HCT - HEMATOCRIT 35.5 % (42.0-52.0); HGB - HEMOGLOBIN 11.2 g/dL (14.0-18.0); LYMPHOCYTES # (AUTO) 0.9 10^3/uL (1.5-3.5); LYMPHOCYTES % (AUTO) 9.6 %; MEAN CORPUSCULAR HEMOGLOBIN 24.7 pg (27.0-31.0); MEAN CORPUSCULAR HGB CONC 31.5 g/dL (32.0-36.0); MEAN CORPUSCULAR VOLUME 78.2 fL (80.0-94.0); MEAN PLATELET VOLUME 9.2 fL (7.4-11.4); MONOCYTES # (AUTO) 0.8 10^3/uL (0.0-1.0); MONOCYTES % (AUTO) 7.6 %; NEUTROPHILS % (AUTO) 81.4 %; PLT - PLATELET COUNT 141 10^3/uL (130-450); RED BLOOD COUNT 4.54 10^6/uL (4.70-6.10); RED CELL DISTRIBUTION WIDTH 20.9 % (12.0-15.0); WHITE BLOOD COUNT 9.8 x10^3/uL (4.8-10.8)
[2022-01-20 09:26] LABS: SLIDE REVIEW? Indicated
[2022-01-20 09:29] LABS: INR 1.2 (0.8-1.2); PT - PROTHROMBIN TIME 13.3 secs (9.9-12.6)
[2022-01-20 09:36] LABS: PARTIAL THROMBOPLASTIN TIME 32.5 secs (24.9-33.3)
[2022-01-20] MEDS ORDERED: LIDOCAINE-MPF 1% 10 ML AMP ONE (10:15)
--- NOTE | 2022-01-20 14:00 | Ultrasound Report ---
PROCEDURE: Abdominal Paracentesis INDICATIONS: CRYPTOGENIC CIRRHOSIS TECHNIQUE: The indications, alternatives, benefits, risks, and complications of the procedure were explained to the patient. Written informed consent was obtained and placed in the chart. The abdomen and pelvis were examined sonographically, and an appropriate site was chosen for paracentesis. The skin was pre pared and draped in the usual sterile fashion, and 1% lidocaine was infiltrated from the skin down th rough the peritoneal surface. A 19-gauge catheter-covered needle was then introduced into the perito araceli space, the catheter was advanced and the needle was withdrawn, and thereafter peritoneal fluid w as withdrawn. The catheter was then removed and a dressing was applied. The fluid was discarded if the clinician did not order diagnostic testing of the fluid. COMPARISON: None. FINDINGS: Access site: Right lower quadrant. Needle: One-Step centesis catheter with introducer needle. Fluid volume and description: 15.2 L; cloudy. Fluid sent for diagnostic testing: Not requested by ordering physician. Medications: 1% lidocaine for local anaesthesia. Complications: None. IMPRESSION: Successful ultrasound-guided paracentesis. Reviewed by: Brianna Gruber MD on 01/20/2022 1:59 PM PDT Approved by: Brianna Gruber MD on 01/20/2022 1:59 PM PDT Station ID: [id number]
[2022-01-20] MEDS: LIDOCAINE-MPF 1% 10 ML AMP SUBQ ONE (15:19)
== END 2022-01-20 08:56 | disposition home or self-care (01) ==
LOC: DI 08:55
PROVIDERS: ATTEND Internal Medicine Transplant Hepatology
DX: K72.90 Hepatic failure, unspecified without coma (principal); K74.60 Unspecified cirrhosis of liver
CPT/HCPCS: 36415; 49083; 85025; 85610; 85730

== ENCOUNTER 2022-01-28 13:04 | Emergency (ER) | payer MEDICARE, OTHER ==
--- NOTE | 2022-01-28 15:41 | XRAY Report ---
PROCEDURE: Knee 4 View RT INDICATIONS: fall right knee contusion TECHNIQUE: 4 views of the right knee(s) were acquired. COMPARISON: None. FINDINGS: Bones: No fractures or dislocations. No suspicious bony lesions. Soft tissues: Moderate joint effusion. No suspicious soft tissue calcifications. Atherosclerotic vascular calcifications are noted. Surgical clips present in the medial thigh. The rupinder int spaces preserved. IMPRESSION: No fracture or malalignment. Advanced chronic vascular calcification. Moderate joint eff usion. Reviewed by: Hiro Shaw MD on 01/28/2022 2:39 PM [facility] Approved by: Hiro Shaw MD on 01/28/2022 2:39 PM [facility] Station ID: [id number]
--- NOTE | 2022-01-28 15:43 | XRAY Report ---
PROCEDURE: Ribs w/PA Chest RT INDICATIONS: fall rib contusion TECHNIQUE: 2 views of the right ribs were acquired, along with a single view chest. COMPARISON: 12/22/2021 FINDINGS: Surgical changes and devices: Left-sided pacemaker/fibrillator present. Midline sternal wires noted. Mediastinal vascular clips. Bones and chest wall: No fractures or dislocations. No suspicious bony lesions. Overlying soft tis sues appear unremarkable. Lungs and pleura: No pleural effusions or pneumothorax. Lungs appear clear. Low lung volumes accent uate pulmonary interstitium and heart size. Mediastinum: Mediastinal contours appear normal. Heart size is enlarged. IMPRESSION: No acute cardiopulmonary findings No evidence of rib fracture Reviewed by: Hiro Shaw MD on 01/28/2022 2:41 PM [facility] Approved by: Hiro Shaw MD on 01/28/2022 2:41 PM [facility] Station ID: [id number]
--- NOTE | 2022-01-28 15:50 | ED Physician Documentation ---
PD HPI Fall - Stated complaint Stated Complaint: FALL,RIGHT SIDE INJURY - Chief complaint Chief Complaint: Trauma Ch/Bk - History obtained from History obtained from: Patient - History of Present Illness Mechanism of injury: Tripped Fall distance: Standing position Where injury occurred: A house / apartment Timing - onset: How many days ago (2) Injury(ies) location: Chest, Left Lower Extremity Quality of pain: Pain Associated symptoms: Abdominal distension (similar to always). No: LOC, AMS, Amnesia, Seizures, Ear drainage, Nasal drainage, Neck pain, Weakness, Paresthesias, Dyspnea, Nausea / vomiting, Hematemesis Symptoms improve with: Rest Worsens with: Movement, Palpation Contributing factors: No: Anticoagulated Similar symptoms before: Has not had sx before Recently seen: Other - Additional information Additional information: 71-year-old male with a history of coronary artery disease alcoholic cirrhosis intubated insulin-dependent diabetes mellitus atrial fibrillation and COPD has been off of his Eliquis for 2 weeks. He has had paracentesis done 1 week ago removing 15 L and yesterday he was ambulating outside of his home when he fell forward contusing his right ribs and his right knee. He did not have loss of consciousness or head injury associated with this fall. He has abrasions and skin tears to his right forearm. He has contusion to his right knee. He has pain in the right chest. Review of Systems Constitutional: denies: Fever Eyes: denies: Decreased vision Ears: denies: Ear pain Nose: denies: Congestion Throat: denies: Sore throat Cardiac: denies: Chest pain / pressure Respiratory: denies: Dyspnea GI: reports: Abdominal Swelling. denies: Abdominal Pain, Vomiting, Diarrhea : denies: Dysuria, Frequency PD PAST MEDICAL HISTORY - Past Medical History Past Medical History: Yes Cardiovascular: Congestive heart failure, Hypertension, High cholesterol, Coronary artery disease, Angina, [place], Atrial fibrillation Respiratory: COPD, Shortness of breath, Sleep apnea, CPAP use Neuro: TIA, Peripheral neuropathy, Tremors Endocrine/Autoimmune: Type 2 diabetes GI: GERD, GI bleed, Ulcers : Benign prostate hypertrophy, Renal insuffiency, Nocturia, Frequency HEENT: Chronic vision loss, Chronic sinusitis, Macular degeneration, Chronic hearing loss Psych: Depression, Anxiety Musculoskeletal: Osteoarthritis, Fatigue, Chronic back pain Derm: None - Past Surgical History Past Surgical History: Yes General: Cholecystectomy, EGD Ortho: Arthroscopic surgery, Spine surgery Cardiovascular: CABG, Coronary stent, Pacemaker, AICD, Cardiac catheterization - Present Medications Home Medications: Ambulatory Orders Medication Instructions Recorded Confirmed Aspirin [Aspir 81] 81 mg PO DAILY 03/03/15 10/20/21 Esomeprazole Magnesium [Nexium] 40 mg PO QDAC 03/03/15 10/20/21 Midodrine [ProAmatine] 2.5 mg PO BIDWM 04/04/19 10/20/21 Rosuvastatin Calcium [Crestor] 5 mg PO HS 10/06/20 10/20/21 Torsemide 60 mg PO DAILY 10/06/20 10/20/21 carvediloL [Coreg] 3.125 mg PO BID 10/06/20 10/20/21 rifAXIMin [Xifaxan] 550 mg PO BID 10/19/21 10/20/21 Dicyclomine HCl 20 mg PO QID PRN 10/20/21 10/20/21 Ferrous Sulfate [Feosol] 325 mg PO DAILYWM #30 tablet 10/20/21 Insulin 70/30 Human [NovoLIN] 50 unit SUBQ QDDINNER 10/20/21 10/20/21 Insulin 70/30 Human [NovoLIN] 70 unit SUBQ QDBREAKFAST 10/20/21 10/20/21 Sertraline [Zoloft] 25 mg PO DAILY 10/20/21 10/20/21 Spironolactone [Aldactone] 100 mg PO DAILY 10/20/21 10/20/21 oxyCODONE [Roxicodone] 5 mg PO Q6HR PRN #14 tablet 01/28/22 - Allergies Allergies/Adverse Reactions: Allergies Allergy/AdvReac Type Severity Reaction Status Date / Time No Known Drug Allergies Allergy Verified 01/28/22 13:12 - Social History Does the pt smoke?: No Smoking Status: Never smoker Does the pt drink ETOH?: No Does the pt have substance abuse?: No - Immunizations Immunizations are current?: Yes - POLST Patient has POLST: No POLST Status: DNR PD ED PE NORMAL - Vitals Vital signs reviewed: Yes (Wide pulse pressure) - General General: Alert and oriented X 3, No acute distress, Well developed/nourished - HEENT HEENT: Atraumatic, PERRL, EOMI - Neck Neck: Supple, no meningeal sign, No bony TTP - Cardiac Cardiac: RRR, No murmur - Respiratory Respiratory: No respiratory distress, Clear bilaterally, Other (There is point tenderness to a single rib on the right side lateral chest wall about the seventh rib.) - Abdomen Abdomen: Soft, Non tender, Other (Distended abdomen consistent with ascites is still soft but quite protuberant) - Back Back: No CVA TTP, No spinal TTP - Derm Derm: Normal color, Warm and dry, No rash - Extremities Extremities: No deformity, Other (The right knee is examined with swelling and ecchymosis consistent with a contusion he is able to move the knee in a range of motion without pain the ligaments are stable to testing.) - Neuro Neuro: Alert and oriented X 3, 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, No motor deficit, No sensory deficit, Normal speech Eye Opening: Spontaneous Motor: Obeys Commands Verbal: Oriented GCS Score: 15 - Psych Psych: Normal mood, Normal affect Results - Vitals Vitals: Vital Signs - 24 hr 01/28/22 01/28/22 01/28/22 13:13 15:20 16:00 Temperature 36.8 C Heart Rate 89 84 84 Respiratory 22 16 13 Rate Blood Pressure 105/54 L 107/66 106/72 O2 Saturation 96 100 97 Oxygen O2 Source Room air - Rads (name of study) varinders noelle KWAN chest Radiology: Prelim report reviewed (Impression: No acute cardiopulmonary findings no evidence of rib fracture.), EMP read indepedently, See rad report right knee Radiology: Prelim report reviewed (Impression: No fracture or malalignment. Advanced chronic vascular calcification. Moderate joint effusion.), EMP read indepedently, See rad report PD MEDICAL DECISION MAKING - ED course Complexity details: reviewed results, re-evaluated patient, considered differential, d/w patient ED course: 71-year-old male with advanced cirrhosis and ascites has had a fall contusing his ribs and his right knee. He has been getting around on his leg at home and he states that he feels like he is doing is just fine. He has been taking ibuprofen at home for this pain. I have encouraged the patient to stop taking this medication and to use oxycodone instead for pain. He has a prior history of GI bleed and I have also encouraged patient to use lactulose or to get constipated with his narcotic. He indicates that the lactulose works quite well for him for moving stool. Departure - Departure Disposition: 01 Home, Self Care Clinical Impression: Contusion of rib on right side Qualifiers: Encounter type: initial encounter Qualified Code(s): S20.211A - Contusion of right front wall of thorax, initial encounter Contusion of right knee Qualifiers: Encounter type: initial encounter Qualified Code(s): S80.01XA - Contusion of right knee, initial encounter Condition: Stable Instructions: ED Effusion Knee, ED Contusion Vs Minor Fx Rib Follow-Up: AYUSH FRANCIS MD [Physician No Access] - Prescriptions: oxyCODONE [Roxicodone] 5 mg PO Q6HR PRN #14 tablet PRN Reason: Pain Comments: Maxime today it looks like you have contused your chest wall and this can sometimes lead to some pain that is worse after about 4 or 5 days. I have prescribed some oxycodone for you to substitute for the ibuprofen. It has been E scribed to [facility] pharmacy in [place]. This medicine can be constipating my recommendation is to take some lactulose if you are constipated in any way. The expectation is slow improvement over the next 2 to 3 weeks.
[2022-01-28 16:15] VITALS: BP 106/72
== END 2022-01-28 16:38 | disposition home or self-care (01) ==
LOC: ED 13:04
DX: S20.211A Contusion of right front wall of thorax, initial encounter (principal); S80.01XA Contusion of right knee, initial encounter; W18.30XA Fall on same level, unspecified, initial encounter; Y93.01 Activity, walking, marching and hiking; Y92.009 Unspecified place in unspecified non-institutional (private) residence as the place of occurrence of the external cause; Z66 Do not resuscitate
CPT/HCPCS: 99282; 99284

== ENCOUNTER 2022-02-10 10:50 | Outpatient (CLI) | payer MEDICARE, OTHER ==
--- NOTE | 2022-02-10 13:11 | Ultrasound Report ---
PROCEDURE: Abdominal Paracentesis INDICATIONS: CRYPTOGENIC CIRRHOSIS TECHNIQUE: The indications, alternatives, benefits, risks, and complications of the procedure were explained to the patient. Written informed consent was obtained and placed in the chart. The abdomen and pelvis were examined sonographically, and an appropriate site was chosen for paracentesis. The skin was pre pared and draped in the usual sterile fashion, and 1% lidocaine was infiltrated from the skin down th rough the peritoneal surface. A 19-gauge catheter-covered needle was then introduced into the perito araceli space, the catheter was advanced and the needle was withdrawn, and thereafter peritoneal fluid w as withdrawn. The catheter was then removed and a dressing was applied. The fluid was discarded if the clinician did not order diagnostic testing of the fluid. COMPARISON: Paracentesis 01/20/2022 FINDINGS: Access site: Right lower quadrant Needle: One-Step centesis catheter with introducer needle. Fluid volume and description: 10 L yellow fluid Fluid sent for diagnostic testing: Not requested Medications: 1% lidocaine for local anaesthesia. Complications: None. IMPRESSION: Successful ultrasound-guided paracentesis. Reviewed by: Jv Sheppard MD on 02/10/2022 1:10 PM PDT Approved by: Jv Sheppard MD on 02/10/2022 1:10 PM PDT Station ID: [id number]
[2022-02-10] MEDS ORDERED: LIDOCAINE-MPF 1% 10 ML AMP SUBQ ONE (13:51)
== END 2022-02-10 10:51 | disposition home or self-care (01) ==
LOC: DI 10:50
PROVIDERS: ATTEND Internal Medicine Transplant Hepatology
DX: K72.90 Hepatic failure, unspecified without coma (principal); K74.60 Unspecified cirrhosis of liver
CPT/HCPCS: 49083

== ENCOUNTER 2022-02-19 07:11 | Outpatient (CLI) | payer MEDICARE, OTHER | END 2022-02-19 07:12 | disposition critical access hospital (66) | LOC: EMS 07:11 | DX: R18.8 Other ascites (principal); R10.9 Unspecified abdominal pain; R06.02 Shortness of breath | CPT/HCPCS: A0425; A0429 ==

== ENCOUNTER 2022-02-19 07:25 | Emergency (ER) | payer MEDICARE, OTHER ==
[2022-02-19 08:00] LABS: BASOPHILS # (AUTO) 0.1 10^3/uL (0.0-0.1); EOSINOPHILS # (AUTO) 0.1 10^3/uL (0.0-0.7); EOSINOPHILS % (AUTO) 0.5 %; HCT - HEMATOCRIT 29.4 % (42.0-52.0); HGB - HEMOGLOBIN 9.8 g/dL (14.0-18.0); LYMPHOCYTES # (AUTO) 0.6 10^3/uL (1.5-3.5); LYMPHOCYTES % (AUTO) 6.8 %; MEAN CORPUSCULAR HEMOGLOBIN 26.2 pg (27.0-31.0); MEAN CORPUSCULAR HGB CONC 33.3 g/dL (32.0-36.0); MEAN CORPUSCULAR VOLUME 78.6 fL (80.0-94.0); MEAN PLATELET VOLUME 9.6 fL (7.4-11.4); MONOCYTES # (AUTO) 0.8 10^3/uL (0.0-1.0); MONOCYTES % (AUTO) 8.7 %; NEUTROPHILS # (AUTO) 7.8 10^3/uL (1.5-6.6); NEUTROPHILS % (AUTO) 82.5 %; PLT - PLATELET COUNT 133 10^3/uL (130-450); RED BLOOD COUNT 3.74 10^6/uL (4.70-6.10); RED CELL DISTRIBUTION WIDTH 19.3 % (12.0-15.0); WHITE BLOOD COUNT 9.5 x10^3/uL (4.8-10.8)
[2022-02-19 08:06] LABS: INR 1.1 (0.8-1.2); PT - PROTHROMBIN TIME 12.8 secs (9.9-12.6)
[2022-02-19 08:13] LABS: ALBUMIN 2.8 g/dL (3.2-5.5); ALBUMIN/GLOBULIN RATIO 0.8 (1.0-2.2); BILIRUBIN,TOTAL 1.3 mg/dL (0.2-1.0); CALCIUM 8.4 mg/dL (8.5-10.3); CREATININE 1.1 mg/dL (0.6-1.2); POTASSIUM 4.5 mmol/L (3.5-5.0); TOTAL PROTEIN 6.5 g/dL (6.7-8.2)
[2022-02-19] MEDS ORDERED: ALBUMIN 25% 12.5 GM/50 ML VIAL IV STA ×4 (10:43→11:13)
--- NOTE | 2022-02-19 14:24 | ED Physician Documentation ---
History of Present Illness - Stated complaint Stated Complaint: ABD SWELLING - Chief complaint Chief Complaint: Abd Pain - History obtained from History obtained from: Patient Review of Systems Constitutional: denies: Fever Eyes: denies: Decreased vision Nose: denies: Congestion Throat: denies: Sore throat Cardiac: denies: Chest pain / pressure Respiratory: reports: Dyspnea GI: reports: Abdominal Pain. denies: Vomiting, Diarrhea : denies: Dysuria, Frequency Skin: denies: Rash Musculoskeletal: denies: Neck pain, Back pain, Extremity pain Neurologic: reports: Generalized weakness. denies: Focal weakness, Numbness PD PAST MEDICAL HISTORY - Past Medical History Past Medical History: Yes Cardiovascular: Congestive heart failure, Hypertension, High cholesterol, Coronary artery disease, Angina, [place], Atrial fibrillation Respiratory: COPD, Shortness of breath, Sleep apnea, CPAP use Neuro: TIA, Peripheral neuropathy, Tremors Endocrine/Autoimmune: Type 2 diabetes GI: GERD, GI bleed, Ulcers : Benign prostate hypertrophy, Renal insuffiency, Nocturia, Frequency HEENT: Chronic vision loss, Chronic sinusitis, Macular degeneration, Chronic hearing loss Psych: Depression, Anxiety Musculoskeletal: Osteoarthritis, Fatigue, Chronic back pain Derm: None - Past Surgical History Past Surgical History: Yes General: Cholecystectomy, EGD Ortho: Arthroscopic surgery, Spine surgery Cardiovascular: CABG, Coronary stent, Pacemaker, AICD, Cardiac catheterization - Present Medications Home Medications: Ambulatory Orders Medication Instructions Recorded Confirmed Aspirin [Aspir 81] 81 mg PO DAILY 03/03/15 10/20/21 Esomeprazole Magnesium [Nexium] 40 mg PO QDAC 03/03/15 10/20/21 Midodrine [ProAmatine] 2.5 mg PO BIDWM 04/04/19 10/20/21 Rosuvastatin Calcium [Crestor] 5 mg PO HS 10/06/20 10/20/21 Torsemide 60 mg PO DAILY 10/06/20 10/20/21 carvediloL [Coreg] 3.125 mg PO BID 10/06/20 10/20/21 rifAXIMin [Xifaxan] 550 mg PO BID 10/19/21 10/20/21 Dicyclomine HCl 20 mg PO QID PRN 10/20/21 10/20/21 Ferrous Sulfate [Feosol] 325 mg PO DAILYWM #30 tablet 10/20/21 Insulin 70/30 Human [NovoLIN] 50 unit SUBQ QDDINNER 10/20/21 10/20/21 Insulin 70/30 Human [NovoLIN] 70 unit SUBQ QDBREAKFAST 10/20/21 10/20/21 Sertraline [Zoloft] 25 mg PO DAILY 10/20/21 10/20/21 Spironolactone [Aldactone] 100 mg PO DAILY 10/20/21 10/20/21 oxyCODONE [Roxicodone] 5 mg PO Q6HR PRN #14 tablet 01/28/22 - Allergies Allergies/Adverse Reactions: Allergies Allergy/AdvReac Type Severity Reaction Status Date / Time No Known Drug Allergies Allergy Verified 01/28/22 13:12 - Social History Does the pt smoke?: No Smoking Status: Never smoker Does the pt drink ETOH?: No Does the pt have substance abuse?: No - Immunizations Immunizations are current?: Yes - POLST Patient has POLST: No POLST Status: DNR PD ED PE NORMAL - Vitals Vital signs reviewed: Yes (tachypneic at rest) - General General: Alert and oriented X 3, Well developed/nourished, Other (tachypnea at rest is noted) - HEENT HEENT: Atraumatic, PERRL, EOMI - Neck Neck: Supple, no meningeal sign, No bony TTP - Cardiac Cardiac: RRR, No murmur - Respiratory Respiratory: Clear bilaterally - Abdomen Abdomen: Other (The abdomen is firm and distended consistent with ascites) - Back Back: No CVA TTP, No spinal TTP - Derm Derm: Normal color, Warm and dry, No rash - Extremities Extremities: No deformity, No edema - Neuro Neuro: Alert and oriented X 3, 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 2-12 intact, No motor deficit, No sensory deficit, Normal speech Eye Opening: Spontaneous Motor: Obeys Commands Verbal: Oriented GCS Score: 15 - Psych Psych: Normal mood, Normal affect Results - Vitals Vitals: Vital Signs - 24 hr 02/19/22 02/19/22 02/19/22 07:36 07:55 09:47 Temperature 37.4 C Heart Rate 100 93 95 Respiratory 28 H 16 16 Rate Blood Pressure 136/80 H 134/95 H 130/94 H O2 Saturation 98 98 96 02/19/22 02/19/22 02/19/22 11:05 13:00 14:30 Temperature Heart Rate 88 88 88 Respiratory 15 17 20 Rate Blood Pressure 115/73 100/66 112/66 O2 Saturation 100 98 98 Oxygen O2 Source Room air - Labs Labs: Laboratory Tests 02/19/22 02/19/22 02/19/22 07:50 07:50 07:50 WBC 9.5 RBC 3.74 L Hgb 9.8 L Hct 29.4 L MCV 78.6 L MCH 26.2 L MCHC 33.3 RDW 19.3 H Plt Count 133 MPV 9.6 Neut # (Auto) 7.8 H Lymph # (Auto) 0.6 L Clay # (Auto) 0.8 Eos # (Auto) 0.1 Baso # (Auto) 0.1 Absolute Nucleated RBC 0.00 Nucleated RBC % 0.0 PT 12.8 H INR 1.1 Sodium 127 L Potassium 4.5 Chloride 98 L Carbon Dioxide 20 L Anion Gap 9.0 BUN 32 H Creatinine 1.1 Estimated GFR (MDRD) 66 L Glucose 296 H Calcium 8.4 L Total Bilirubin 1.3 H AST 40 ALT 27 Alkaline Phosphatase 291 H Total Protein 6.5 L Albumin 2.8 L Globulin 3.7 Albumin/Globulin Ratio 0.8 L Lipase 62 H Procedures - Paracentesis Preparation: Consent obtained, Ultrasound guidance, Sterile prep and drape, Local anesthesia (1% lidocaine) Location: RLQ Technique: Z-tract, Catheter over needle Fluid: Clear, Volume - enter cc (10,000) Aftercare: Patient tolerated well, Fluid leak - comment (sutured with 5-0 ethilon) PD MEDICAL DECISION MAKING - ED course Complexity details: reviewed old records, reviewed results, re-evaluated patient, considered differential, d/w patient ED course: Maxime Tristan is a 71-year-old male with end-stage alcoholic cirrhosis and ascites. He has been noncompliant with his diuretic and he has reaccumulated his ascitic fluid more rapidly than anticipated. He had an appointment for drainage set up for 1 week from now. He felt that that he would not last that long. He did appear tachypneic at rest and he was consented for paracentesis and 10 L of straw-colored fluid were drawn off. He did have a fluid leak following that and a single suture was placed. The patient tolerated this procedure well. He felt much improved at the conclusion. He is administered 50 g of albumin intravenously. He was counseled and compliance with his diuretic and specifically asked to take his diuretics regularly. Departure - Departure Disposition: 01 Home, Self Care Clinical Impression: Abdominal ascites Qualifiers: Ascites type: due to alcoholic cirrhosis Qualified Code(s): K70.31 - Alcoholic cirrhosis of liver with ascites Condition: Stable Instructions: Paracentesis Dc, ED Ascites Follow-Up: AYUSH FRANCIS MD [Physician No Access] - Comments: Maxime today we were able to take off 10 L of ascites fluid. It is imperative that you restart your diuretics to prevent rapid reaccumulation. We were able to give you 50 g of albumin today. Discharge Date/Time: 02/19/22 14:34
[2022-02-19 14:32] VITALS: BP 112/66
== END 2022-02-19 14:34 | disposition home or self-care (01) ==
LOC: EDUNIT# → ED 07:25
DX: K70.31 Alcoholic cirrhosis of liver with ascites (principal); E11.9 Type 2 diabetes mellitus without complications; Z79.4 Long term (current) use of insulin; I25.10 Atherosclerotic heart disease of native coronary artery without angina pectoris; I11.0 Hypertensive heart disease with heart failure; Z66 Do not resuscitate
CPT/HCPCS: 36415; 49082; 80053; 83690; 85025; 85610; 96365; 96366; 99283; 99284; P9047

== ENCOUNTER 2022-03-01 08:50 | Outpatient (CLI) | payer MEDICARE, OTHER | END 2022-03-01 08:51 | disposition E | LOC: EMS 08:50 ==